=== PATIENT | female | born 1955 | race Caucasian/White ===

== ENCOUNTER 2018-01-01 11:28 | Emergency (ER) | payer OTHER, SELFPAY ==
--- NOTE | 2018-01-01 11:33 | DI.RAD.S_ITS ---
PROCEDURE: XR KNEE RT 1TO2V INDICATIONS: fall deformity TECHNIQUE: 2 views of the knee were acquired. COMPARISON: None. FINDINGS: Bones: Acute displaced fracture involving midportion of patella is seen with proximal retraction of the upper patella fragment and a 3 cm gap at fracture site. No other fracture or dislocation is seen. No suspicious bony lesions. Soft tissues: Moderate suprapatellar joint effusion is seen. Marked anterior soft tissue swelling is noted. No suspicious soft tissue calcifications. IMPRESSION: Acute displaced patella fracture as described above. Dictated by: Uriah Little M.D. on 01/01/2018 at 11:52 Approved by: Uriah Little M.D. on 01/01/2018 at 11:53
[2018-01-01 11:37] VITALS: BP 140/83; PULSE 104; RESP 18; TEMP 36.7; O2SAT 100; BMI 20.1
--- NOTE | 2018-01-01 11:53 | PC.NURSE ---
Checked on patient and family members. Pt was drinking Tea that the family members brought in. Informed everyone that pt needs to remain NPO until we have results and a plan. everyone Verbalizes understanding.
--- NOTE | 2018-01-01 12:07 | ED.FALL ---
HPI - Fall <Avis Barrera PA-C - Last Filed: 01/01/18 15:20> General Chief Complaint: Fall Stated Complaint: GLF, R knee deformity Time Seen by Provider: 01/01/18 11:32 Source: patient Mode of arrival: EMS Limitations: no limitations History of Present Illness HPI Narrative: This 62-year-old female slipped on wet leaves and pavement and fell, pushing her knee into a step shortly prior to arrival. She was not able to bear weight. The knee swelled instantly The and was very painful. She denies any other injury including head contusion or LOC. She denies any pain in her hip, ankle or foot. She denies numbness. She has not eaten today, had a little bit of juice 5 hr ago. Related Data Home Medications Medication Instructions Recorded Confirmed Multi Vitamin 1 tab PO DAILY 01/05/18 01/05/18 Requip 50 mg PO BEDTIME PRN 01/05/18 01/05/18 cholecalciferol (vitamin D3) 500 mg PO DAILY 01/05/18 01/05/18 cyanocobalamin (vitamin B-12) 1,000 mg PO DAILY 01/05/18 01/05/18 lisinopril 20 mg PO DAILY 01/05/18 01/05/18 Previous Rx's Medication Instructions Recorded ibuprofen 800 mg PO Q8H #14 tab 01/01/18 oxycodone-acetaminophen [Percocet] 2 tab PO Q4-6H PRN #14 tab 01/01/18 oxycodone 5 mg PO Q3HR PRN #40 tab 01/05/18 Allergies Allergy/AdvReac Type Severity Reaction Status Date / Time No Known Drug Allergies Allergy Verified 01/05/18 16:33 Review of Systems <Avis Barrera PA-C - Last Filed: 01/01/18 15:20> Review of Systems All systems reviewed & are unremarkable except as noted in HPI and below Exam <Avis Barrera PA-C - Last Filed: 01/01/18 15:20> Narrative Exam Narrative: GENERAL APPEARANCE: Patient sitting comfortably, in no distress. LUNGS: Clear to auscultation bilaterally. HEART: Rate and rhythm regular without murmur, normal S1 and S2, no S3 or S4. MUSCULOSKELETAL: Right knee is markedly edematous over the patella, held in extension. Generalized tenderness to light touch. No tenderness over the inferior leg, ankle or right foot. Able to plantar and dorsiflex the toes. DERMATOLOGIC: Ecchymoses over the right patella NEUROVASCULAR: Right PT and DP pulses are intact, sensation is grossly intact in the right foot which is warm and pink Initial Vital Signs Initial Vital Signs: Vital Signs Temperature 98.1 F 01/01/18 11:37 Pulse Rate 104 H 01/01/18 11:37 Respiratory Rate 18 01/01/18 11:37 Blood Pressure 140/83 01/01/18 11:37 Pulse Oximetry 100 01/01/18 11:37 <Urvashi Barillas DO - Last Filed: 01/06/18 18:24> Initial Vital Signs Initial Vital Signs: Vital Signs Temperature 98.1 F 01/01/18 11:37 Pulse Rate 104 H 01/01/18 11:37 Respiratory Rate 18 01/01/18 11:37 Blood Pressure 140/83 01/01/18 11:37 Pulse Oximetry 100 01/01/18 11:37 Course <Avis Barrera PA-C - Last Filed: 01/01/18 15:20> Additional Information: I spoke with Dr. Cook hotel front desk clerk for orthopedics who advised patient can be immobilized in knee extension and all his office for follow up tomorrow. Orders Ordered: Discontinued Medications Hydromorphone HCl (Dilaudid) 1 mg IV NOW ONE Stop: 01/01/18 12:16 Last Admin: 01/01/18 12:18 Dose: 1 mg Ibuprofen (Advil) 800 mg PO NOW ONE Stop: 01/01/18 13:15 Last Admin: 01/01/18 13:17 Dose: 800 mg Ondansetron HCl (Zofran) 4 mg IV NOW ONE Stop: 01/01/18 12:25 Last Admin: 01/01/18 12:26 Dose: 4 mg Vital Signs - 8 hr 01/01/18 11:37 01/01/18 12:30 01/01/18 13:30 Temperature 98.1 F Pulse Rate 104 H 89 102 H Respiratory Rate 18 14 19 Blood Pressure 140/83 134/76 Blood Pressure [Right Arm] 127/78 Pulse Oximetry 100 100 98 <DO Princess Yusuf Last Filed: 01/06/18 18:24> Orders Ordered: Discontinued Medications Hydromorphone HCl (Dilaudid) 1 mg IV NOW ONE Stop: 01/01/18 12:16 Last Admin: 01/01/18 12:18 Dose: 1 mg Ibuprofen (Advil) 800 mg PO NOW ONE Stop: 01/01/18 13:15 Last Admin: 01/01/18 13:17 Dose: 800 mg Ondansetron HCl (Zofran) 4 mg IV NOW ONE Stop: 01/01/18 12:25 Last Admin: 01/01/18 12:26 Dose: 4 mg Vital Signs - 8 hr 01/01/18 11:37 01/01/18 12:30 01/01/18 13:30 Temperature 98.1 F Pulse Rate 104 H 89 102 H Respiratory Rate 18 14 19 Blood Pressure 140/83 134/76 Blood Pressure [Right Arm] 127/78 Pulse Oximetry 100 100 98 MDM - Fall <Avis Barrera PA-C - Last Filed: 01/01/18 15:20> Imaging Data knee: Radiologist's impression: [address] [address] XRay Report Signed Patient: Karen Bravo RMR#: [id number] : 8Acct:[id number] Age/Sex: 62 / FDate of Service: 01/01/18 Loc: ED Accession Number: [id number] Procedure: XR knee RT 1to2V Ordering Provider: Urvashi Barillas D.O. PROCEDURE: XR KNEE RT 1TO2V INDICATIONS: fall deformity TECHNIQUE: 2 views of the knee were acquired. COMPARISON: None. FINDINGS: Bones: Acute displaced fracture involving midportion of patella is seen with proximal retraction of the upper patella fragment and a 3 cm gap at fracture site. No other fracture or dislocation is seen. No suspicious bony lesions. Soft tissues: Moderate suprapatellar joint effusion is seen. Marked anterior soft tissue swelling is noted. No suspicious soft tissue calcifications. IMPRESSION: Acute displaced patella fracture as described above. Dictated by: Uriah Little M.D. on 01/01/2018 at 11:52 Approved by: Uriah Little M.D. on 01/01/2018 at 11:53 Discharge Plan Departure Patient Disposition: Home Clinical Impression: Right patella fracture Discharge Date/Time: 01/01/18 13:32 Interventions: ED Discharge Assessment Last Done: 01/01/18 13:30 Instructions: DI for Patella Fracture Activity Restrictions/Additional Instructions: Please take Ibuprofen 800mg every 8 hours to help with inflammation and pain, and you can add the prescription pain medication Percocet that you have had previously as needed. Return as we talked about if you have acute changes such as severe increase in pain, numbness, or color changes in your feet (i.e. blue or white). Keep the knee straight and immobilized at all times (you can walk a little bit as long as you keep the knee straight). Call [facility] first thing in the morning and let them know you were seen in the emergency room with a kneecap fracture and Dr. Amezcua advised that you call 1st thing tomorrow to be scheduled Prescriptions: New ibuprofen 800 mg tablet 800 mg PO Q8H Qty: 14 RF: 0 oxycodone-acetaminophen [Percocet] 5-325 mg tablet 2 tab PO Q4-6H PRN (Reason: knee fracture pain acute) Qty: 14 RF: 0 No Action Multi Vitamin 1 tab PO DAILY RF: 0 Requip 50 mg PO BEDTIME PRN (Reason: Restless Leg(S)) RF: 0 cholecalciferol (vitamin D3) 500 mg PO DAILY RF: 0 cyanocobalamin (vitamin B-12) 1,000 mg PO DAILY RF: 0 lisinopril 20 mg PO DAILY RF: 0 oxycodone 5 mg Tablet 5 mg PO Q3HR PRN (Reason: Pain, Moderate (4-6)) Qty: 40 RF: 0 Referrals: Danni Kraus [Primary Care Provider] - Dre Amezcua MD [Physician] - <Urvashi Barillas DO - Last Filed: 01/06/18 18:24> Cosign ED Attending Rafaela Attestation: I was immediately available in the department for consultation. Documentation has been reviewed. I agree with assessment and plan.
[2018-01-01] MEDS: HYDROMORPHONE 1 MG INJ IV (12:18)
[2018-01-01] MEDS: ONDANSETRON 4 MG/2 ML INJ IV (12:26)
[2018-01-01 12:30] VITALS: BP 127/78; PULSE 89; RESP 14; O2SAT 100
[2018-01-01] MEDS: IBUPROFEN 400 MG TABLET 800 MG PO (13:17)
[2018-01-01 13:30] VITALS: BP 134/76; PULSE 102; RESP 19; O2SAT 98
== END 2018-01-01 13:32 | disposition home or self-care (01) ==
PROVIDERS: Emergency Provider Internal Medicine; Family Provider Nurse Practitioner Family; PCP Nurse Practitioner Family
DX: S82.001A Unspecified fracture of right patella, initial encounter for closed fracture (principal); W01.0XXA Fall on same level from slipping, tripping and stumbling without subsequent striking against object, initial encounter
CPT/HCPCS: 73560; 96374; 96375; 99283; 99284; J1170; J2405

== ENCOUNTER 2018-01-05 12:05 | Day surgery (SDC) | payer OTHER, SELFPAY ==
[2018-01-05 14:08] VITALS: BMI 20.1
[2018-01-05] MEDS: LACTATED RINGERS 1,000 ML 42 ML IV (14:22)
[2018-01-05 14:28] VITALS: BMI 20.1
[2018-01-05 14:29] VITALS: BP 137/84; PULSE 100; RESP 16; TEMP 36.9; O2SAT 100
--- NOTE | 2018-01-05 14:39 | SUR.PREOP ---
Did not use chlorhexidine on skin preop due to discomfort and brace.
--- NOTE | 2018-01-05 14:54 | PM.PREOP ---
Pre-operative Note Interval Note Pre-op Check: Yes History & Physical Reviewed by Physician and Yes Exam Performed Changes: No
[2018-01-05] MEDS: CEFAZOLIN VIAL 1 GM in SODIUM CHLORIDE 0.9% 100 ML 200 ML IV (15:05)
--- NOTE | 2018-01-05 15:38 | SUR.OPER ---
Lithotomy on padded OR bed, head on pillow, arms secured on padded arm boards at <90 degrees abduction. Left leg secured in padded yellow fins stirrup. Right leg in padded arthroscopy leg flor under control of surgeon.
[2018-01-05] MEDS: BUPIVACAINE 0.5% W/ EPI (PF) VIAL 30 ML INJ (15:53)
[2018-01-05 16:30] VITALS: BP 132/71; PULSE 105; RESP 20; TEMP 36.1; O2SAT 95
[2018-01-05 16:35] VITALS: BP 153/58; PULSE 108; RESP 17; O2SAT 94
[2018-01-05 16:40] VITALS: BP 138/60; PULSE 107; RESP 19; O2SAT 93
--- NOTE | 2018-01-05 16:40 | PM.OP.1 ---
Operative Date/Time/Diagnoses Date of procedure: 01/05/18 Time of procedure: 16:20 Pre-op diagnosis: Comminuted patellar fracture, right knee Post-op diagnosis: same Procedure & Clinicians Procedure: Open reduction internal fixation of comminuted patellar fracture with K-wires and tension band. Same procedure as scheduled: Yes Indications: The patient is a 62-year-old woman who fell down the stairs earlier this week sustaining a comminuted and badly displaced patellar fracture. She has agreed to surgery after discussion of the risks benefits and alternatives. Risks discussed included but were not limited to potential difficulty with reduction based on the comminution, potential ongoing pain in the knee, potential stiffness, deep venous thrombosis, pulmonary embolism, myocardial infarction, permanent paralysis and . Surgeon: Dayron Nunez Click Yes if Unassisted: Yes Anesthesia Type: General and Local Operative Notes Findings: Significant comminution of the distal fragment with a coronal split. Closure Type: primary Specimen(s): none sent Implants & Drains: Two 0.062 in K-wires and an 18 gauge cerclage wire. Applied: implant(s) Estimated Blood Loss (mL): 100 Blood products transfused: none Tourniquet time (min): 54 Procedure in detail: The patient was seen in the preoperative area where she identified her right leg as the operative site and this was marked with my initials. She received preoperative antibiotics with an appropriate 1st generation cephalosporin and then was taken to the operating room placed on the operating room table in a supine position where she underwent a general anesthetic. A tourniquet was placed about her proximal right thigh. Right leg was placed in the arthroscopic leg flor. Her left leg was placed in a stirrup to move it out of the way of the fluoroscope. The right leg was prepared from the toes to the tourniquet with ChloraPrep in the usual fashion and draped through sterile drapes. Prior to prepping and draping a manager maritime-out was performed per protocol. The leg was elevated and exsanguinated with an Esmarch bandage the tourniquet inflated to 250 mm of mercury. An approximately 12 cm incision was created overlying the patella the fracture hematoma was evacuated using suction. Blood clot from the fracture was cleaned. I initially performed a reduction using a tenaculum clamp. This was viewed on the AP and lateral views with fluoroscopy. Became evident that the coronal split in the distal fragment had displaced and basically intersussepted the proximal fragment into the distal fragment. I released the clamp and carefully inspected the distal fragment. I felt that I could provide good enough fixation to avoid a partial patellectomy. The 2 K-wires were placed and anterior grade fraction through the distal fragment and then the fracture was reduced as best as possible and the wires advanced in a retrograde fashion across the proximal fragment. The the 18 gauge cerclage wire was then placed and tightened. The articular surface was palpated and there was a small step-off but it was within acceptable limits. The position of the hardware was verified in the AP and lateral views. The K-wires were then bent and advanced distally and buried in the quadriceps tendon. The distal portions of the K-wires were bent and cut in such a way that they would not be prominent subcutaneously. The tightening coils of the cerclage wire were bent to avoid subcutaneous irritation. The tears in the retinaculum were then repaired on either side of the patella with running 0 Vicryl. Subcutaneous layer was closed with 3 O Vicryl, the skin with a running 3 0 V lock suture and Steri-Strips. 20 mL of 0.5% Marcaine with epinephrine was injected subcutaneously for postoperative pain control. Steri-Strips, sterile 4x4s, cast padding and an Butch wrap were applied followed by a locked postoperative brace. This was in 0? extension. The tourniquet was deflated during dressing placement for total tourniquet time of 54 min. Patient was then transported to the recovery room in good condition having tolerated procedure well. Complications: none Condition: stable Disposition: PACU Plan for aftercare: The patient will be maintained in a fully extended position for 2 weeks. She will be allowed to weightbear as tolerated in the brace. At 2 weeks we will release her to 0-30 degrees at 4 weeks 0-60 and at 6 weeks 0-90. Two weeks after that the brace will be removed.
[2018-01-05 16:45] VITALS: BP 159/84; PULSE 104; RESP 15; O2SAT 96
--- NOTE | 2018-01-05 16:48 | P.OP_ITS ---
Operative Date/Time/Diagnoses Date of procedure: 01/05/18 Time of procedure: 16:20 Pre-op diagnosis: Comminuted patellar fracture, right knee Post-op diagnosis: same Procedure & Clinicians Procedure: Open reduction internal fixation of comminuted patellar fracture with K-wires and tension band. Same procedure as scheduled: Yes Indications: The patient is a 62-year-old woman who fell down the stairs earlier this week sustaining a comminuted and badly displaced patellar fracture. She has agreed to surgery after discussion of the risks benefits and alternatives. Risks discussed included but were not limited to potential difficulty with reduction based on the comminution, potential ongoing pain in the knee, potential stiffness, deep venous thrombosis, pulmonary embolism, myocardial infarction, permanent paralysis and . Surgeon: Dayron Nunez Click Yes if Unassisted: Yes Anesthesia Type: General and Local Operative Notes Findings: Significant comminution of the distal fragment with a coronal split. Closure Type: primary Specimen(s): none sent Implants & Drains: Two 0.062 in K-wires and an 18 gauge cerclage wire. Applied: implant(s) Estimated Blood Loss (mL): 100 Blood products transfused: none Tourniquet time (min): 54 Procedure in detail: The patient was seen in the preoperative area where she identified her right leg as the operative site and this was marked with my initials. She received preoperative antibiotics with an appropriate 1st generation cephalosporin and then was taken to the operating room placed on the operating room table in a supine position where she underwent a general anesthetic. A tourniquet was placed about her proximal right thigh. Right leg was placed in the arthroscopic leg flor. Her left leg was placed in a stirrup to move it out of the way of the fluoroscope. The right leg was prepared from the toes to the tourniquet with ChloraPrep in the usual fashion and draped through sterile drapes. Prior to prepping and draping a fullerette- out was performed per protocol. The leg was elevated and exsanguinated with an Esmarch bandage the tourniquet inflated to 250 mm of mercury. An approximately 12 cm incision was created overlying the patella the fracture hematoma was evacuated using suction. Blood clot from the fracture was cleaned. I initially performed a reduction using a tenaculum clamp. This was viewed on the AP and lateral views with fluoroscopy. Became evident that the coronal split in the distal fragment had displaced and basically intersussepted the proximal fragment into the distal fragment. I released the clamp and carefully inspected the distal fragment. I felt that I could provide good enough fixation to avoid a partial patellectomy. The 2 K-wires were placed and anterior grade fraction through the distal fragment and then the fracture was reduced as best as possible and the wires advanced in a retrograde fashion across the proximal fragment. The the 18 gauge cerclage wire was then placed and tightened. The articular surface was palpated and there was a small step- off but it was within acceptable limits. The position of the hardware was verified in the AP and lateral views. The K-wires were then bent and advanced distally and buried in the quadriceps tendon. The distal portions of the K- wires were bent and cut in such a way that they would not be prominent subcutaneously. The tightening coils of the cerclage wire were bent to avoid subcutaneous irritation. The tears in the retinaculum were then repaired on either side of the patella with running 0 Vicryl. Subcutaneous layer was closed with 3 O Vicryl, the skin with a running 3 0 V lock suture and Steri-Strips. 20 mL of 0.5% Marcaine with epinephrine was injected subcutaneously for postoperative pain control. Steri-Strips, sterile 4x4s, cast padding and an Butch wrap were applied followed by a locked postoperative brace. This was in 0? extension. The tourniquet was deflated during dressing placement for total tourniquet time of 54 min. Patient was then transported to the recovery room in good condition having tolerated procedure well. Complications: none Condition: stable Disposition: PACU Plan for aftercare: The patient will be maintained in a fully extended position for 2 weeks. She will be allowed to weightbear as tolerated in the brace. At 2 weeks we will release her to 0-30 degrees at 4 weeks 0-60 and at 6 weeks 0- 90. Two weeks after that the brace will be removed.
[2018-01-05] MEDS: fentaNYL 100 MCG/2 ML INJ IV (16:55)
[2018-01-05 17:10] VITALS: BP 160/90; PULSE 92; RESP 16; TEMP 36.8; O2SAT 94
[2018-01-05] MEDS: hydrOXYzine pamoate 25 MG CAPSULE PO (17:15)
[2018-01-05] MEDS: OXYCODONE IR 5 MG TABLET PO (17:15)
--- NOTE | 2018-01-05 18:10 | SUR.PHASEII ---
On discharge, patient desiring to go home despite still with pain. Discussed medication alternatives for then and later. Rec'd Fentanyl in PACU, but given both Hydroxyzine and Oxycodone in Phase II.
== END 2018-01-05 17:50 | disposition home or self-care (01) ==
PROVIDERS: PCP Nurse Practitioner Family; Visit Provider Orthopaedic Surgery
PROC: 0QSD04Z Reposition Right Patella with Internal Fixation Device, Open Approach (ICD-10-PCS; CPT 27524; principal; 2018-01-05 14:45)
DX: S82.031A Displaced transverse fracture of right patella, initial encounter for closed fracture (principal); W01.0XXA Fall on same level from slipping, tripping and stumbling without subsequent striking against object, initial encounter; I10 Essential (primary) hypertension; M19.90 Unspecified osteoarthritis, unspecified site; G25.81 Restless legs syndrome
CPT/HCPCS: 27524; J0690; J1100; J2250; J2405; J2704; J3010

== ENCOUNTER → 2019-09-11 10:46 | Outpatient (CLI) | payer OTHER, SELFPAY ==
[2019-09-11 11:36] LABS: Add Manual Diff / Slide Review NO; Basophils Absolute Auto 0 /uL (0-100); Basophils Percent Auto 0.5 % (0-2); Eosinophils Absolute Auto 100 /uL (0-450); Eosinophils Percent Auto 1.7 % (2-4); Hematocrit 38.3 % (36-46); Hemoglobin 13.4 g/dL (12.0-16.0); Lymphocytes Absolute Auto 1200 /uL (1100-4500); Lymphocytes Percent Auto 19.8 % (25-40); Mean Corpuscular Hemoglobin 37.2 PG (26-34); Mean Corpuscular Volume 106.2 fL (80-100); Monocytes Absolute Auto 600 /uL (0-900); Monocytes Percent Auto 10.3 % (3-14); Neutrophils Absolute Auto 4000 /uL (1500-7000); Neutrophils Percent Auto 67.7 % (50-75); Platelet Count 260 X10^3/uL (150-400); Red Blood Cell Count 3.61 X10^6/uL (4.0-5.2); Red Cell Distribution Width 12.4 % (11.6-14.8); White Blood Cell Count 5.9 X10^3/uL (4.5-11.0)
[2019-09-11 11:55] LABS: BUN Creatinine Ratio 19.7 (6-22); Blood Urea Nitrogen 12 mg/dL (7-17); Calcium 10.7 mg/dL (8.4-10.2); Carbon Dioxide 26 mmol/L (22-32); Chloride 94 mmol/L (98-107); Estimated Glomerular Filt Rate > 60.0 mL/min (>60); Glucose 136 mg/dL (80-110); HEMOLYSIS < 15 (0-50); Potassium 4.3 mmol/L (3.4-5.1); Sodium 131 mmol/L (137-145)
== END ==
PROVIDERS: PCP Internal Medicine; Referring Provider Orthopaedic Surgery; Visit Provider Orthopaedic Surgery
DX: Z01.818 Encounter for other preprocedural examination (principal); Z01.812 Encounter for preprocedural laboratory examination
CPT/HCPCS: 36415; 80048; 85025; 93005; 93010

== ENCOUNTER → 2019-09-24 14:20 | Outpatient (CLI) | payer OTHER, SELFPAY ==
[2019-09-25 20:36] LABS: COVID19 Sendout Not Detected (Not Detect)
== END ==
PROVIDERS: PCP Internal Medicine; Visit Provider Physician Assistant
DX: Z11.59 Encounter for screening for other viral diseases (principal)
CPT/HCPCS: 87635

== ENCOUNTER 2019-09-27 09:46 | Inpatient (IN) | payer OTHER, SELFPAY ==
[2019-09-18 11:54] VITALS: BMI 18.6
[2019-09-27] VITALS (26 sets, daily range): BP systolic 110–153; BP diastolic 52–105; PULSE 103–133; RESP 10–19; TEMP 36.4–37.5; O2SAT 90–100; BMI 19.9
--- NOTE | 2019-09-27 | DI.RAD.S_ITS ---
PROCEDURE: XR LUMBAR SPINE 2-3V INDICATIONS: TLIF L4-S1 TECHNIQUE: 2 views of the lumbar spine were acquired. COMPARISON: None. FINDINGS: Bones: Expected intraoperative alignment of posterior spinal fixation from L4-S1. Interbody cage grafts at L4-L5 and L5-S1. IMPRESSION: Expected intraoperative alignment Dictated by: Tima August M.D. on 09/27/2019 at 17:22 Approved by: Tima August M.D. on 09/27/2019 at 17:23
[2019-09-27] MEDS: LACTATED RINGERS 1,000 ML 42 ML IV ×3 (10:36→17:36)
[2019-09-27] MEDS: fentaNYL 100 MCG/2 ML INJ 50 MCG IV ×4 (10:44→11:09)
--- NOTE | 2019-09-27 10:56 | PM.PREOP ---
Pre-operative Note COVID-19 COVID-19 status: Negative Result date/Date tested (Pos, Neg/Pending): 09/24/19 Interval Note History & Physical reviewed/Exam performed by Physician: Yes Changes to H&P: No
--- NOTE | 2019-09-27 11:00 | PM.OP.1 ---
Operative Date/Time/Diagnoses Date of procedure: 09/27/19 Time of procedure: 16:29 Pre-op diagnosis: Lumbar stenosis with radiculopathy Lumbar scoliosis Post-op diagnosis: same Procedure & Clinicians Procedure: L4-5 anterior fusion with cage L4-5 posterior fusion L5-S1 TLIF (posterior/posterior interbody fusion) with cage L4, L5, S1 screws L4-5, L5-S1 laminectomies Use of microscope Iliac crest bone graft aspirate Placement of epidural catheter Same procedure as scheduled: Yes Indications: [age] year old female with intractable pain from stenosis. They had failed conservative management and requested operative intervention. Risks and benefits of surgery were discussed and appropriate consents were obtained. Surgeon: Gopi Vásquez Rate Supervisor: Rossana Spencer Anesthesia Type: General Operative Notes Findings: None Closure Type: primary Specimen(s): none sent Prosthetic devices, grafts, tissues, transplants, or devices: NuVasive XLIF cage and MAS Reline screws Globus Rise cage Applied: catheter Estimated Blood Loss (mL): 30 Procedure in detail: Patient was brought to the operating room and intubated on the table. Time-out was performed. They were then rolled over to the lateral decubitus position with the [id number]. The table was bent and they were taped down in the correct position. X-rays were taken to confirm a true AP and lateral. Preoperative antibiotics were given. The left flank was prepped and draped in standard sterile fashion. Using fluoroscopy, a 3 cm incision was made above the iliac crest. We bluntly dissected down with Metzenbaum scissors and split the 3 abdominal muscle layers. We dissected out the retroperitoneal space and using finger guidance, brought our 1st dilator down to the psoas muscle. Using neuromonitoring and fluoroscopy, we placed it through the psoas onto the L4-5 disc space in an anterior position and gradually pulled the dilator posteriorly along the disc space. We placed our guidewire and measured our depth for the retractor. We then dilated with the next 2 dilators and then placed our retractor over the dilators. Position was confirmed with fluoroscopy and the retractor was locked down to the bar. We opened up the retractor and checked with neuro monitoring. We then placed the shai and again checked with neuro monitoring. The retractor was opened further and the ALL retractor was placed. An annulotomy was performed. We then performed a complete diskectomy with ring curette, pituitary, box osteotome. A Wilkes was advanced across the disc space under fluoroscopy to release the lateral annulus on the opposite side. We then used sequentially larger trials and confirmed under fluoroscopy. An XLIF cage was packed with Osteocel bone graft and impacted into the L4-5 disc space with fluoroscopy for the anterior fusion at this level. The wound was irrigated. The retractor was closed down. The shai was removed. We carefully removed the retractor with direct visualization to make sure there was no neurovascular or abdominal injury. Final x-rays were taken. The muscle fascia was closed, superficial tissue was closed. The skin was closed. Sterile dressing was placed. The patient was then rolled over on the well-padded prone position on the Darrin table. Using fluoroscopy, a 5 cm incision was made to the well-marked left of the midline. Jamshidi needles were used to cannulate the L4, L5, and S1 pedicles on the left using fluoroscopy and neural monitoring. We changed used to guidewires and then placed our screw shanks. We opened up the retractor at L5-S1. We cleared medially as well as into the gutter. The L5 transverse process and sacral ala were decorticated with the bur. We then brought a microscope. A left-sided laminectomy was performed at L5-S1 using a bur and Kerrison rongeurs. To open the neural foramen we had to perform a facetectomy until we had this adequately decompressed. In the end we could use the ball probe and cross the midline and out to the foramen and everything was open. We then began the TLIF prep. We cleared up the foramen further and retracted the dura medially. Bipolar was used for hemostasis on the disc. An annulotomy was performed. We then used a combination of pituitaries, paddles, Dung to prep the disc space and decorticate the endplates. We placed Osteocel bone graft into the anterior disc space and then placed our Globus Rise cage and expanded it under fluoroscopy. We then added more bone graft. This completed the anterior interbody portion of the TLIF at L5-S1. We then moved our retractors up to L4-5. We again expose the gutter and decorticated the L4 transverse process. We exposed medially. We then performed of left-sided laminectomy at L4-5. We had to remove a fair amount of the facet until the foramen was open. At the end we could move the ball probe cephalad and caudally and out the foramen across the opposite side and everything was open. The wound was copiously irrigated. An epidural catheter was primed with 4mL of 0.5% bupivacaine, 100 mcg fentanyl, 4 mg Duramorph, 1 mg Stadol. The dura was depressed under the cephalad lamina with a ball probe and the epidural catheter was gently advanced 6 cm cephalad. The screw heads were placed and a bella was measured and locked down. A small stab incision was made over the PSIS and a Jamshidi needle was placed into the iliac crest and several mL of bone marrow was aspirated. This was mixed with our locally harvested bone graft as well as the remaining Osteocel and placed in the posterolateral gutter for fusion at at L4-5 as well as the posterolateral fusion portion of the L5-S1 TLIF. The fascia was then closed. The epidural was then injected without resistance. The catheter was pulled and we closed more over the fascia. We then went to the right side. Again using fluoroscopy a 5 cm incision was made. We placed Jamshidi needles down the right-sided pedicles of L4, L5, and S1 with monitoring and fluoroscopy. We changed out of her guidewires and tapped and then placed our screws. A bella was placed and locked down. The wound was irrigated. The fascia was closed. Vancomycin powder was placed in the wounds. The superficial and skin were closed. Sterile dressing was placed. The patient was then rolled over, extubated, brought to the recovery room with no complications. Complications: none Post-operative Condition: stable Disposition: PACU Plan for aftercare: Inpatient. Up with therapy.
[2019-09-27] MEDS: CEFAZOLIN 1 GM/50 ML FROZ.PIGGY IV ×3 (11:45→23:36)
--- NOTE | 2019-09-27 12:26 | SUR.OPER ---
Part 1: Right lateral on padded OR table. Head on pillow, gel axillary roll, pillow to support left arm. Legs flexed, pillows between legs, gel pad under down leg and ankle. Multiple passes of 3 inch cloth tape across shoulder, hip, upper and lower legs to secure patient on OR table.
--- NOTE | 2019-09-27 12:27 | SUR.OPER ---
Part 2: Prone on spine table, head in foam head support, padded chest and pelvic supports, gel pad at knees, lower legs supported by pillows; nipples, genitalia and toes free of pressure, arms secured on foam padded arm boards at <90 degrees abduction. Tape over blanket at thigh secured to table.
[2019-09-27] MEDS: SODIUM CHLORIDE 0.9% 1,000 ML, GENTAMICIN 80 MG IRR ×2 (12:39→13:30)
[2019-09-27] MEDS: BUPIVACAINE 0.5% (PF) 4 ML, MORPHINE-PF 4 MG, BUTORPHANOL 1 MG, fentaNYL 100 MCG INJ (12:40)
[2019-09-27] MEDS: VANCOMYCIN 1,000 MG VIAL 1000 MG TOP (12:45)
[2019-09-27] MEDS: THROMBIN (RECOMBINANT) 5,000 UNIT VIAL 5000 UNIT TOP (12:47)
--- NOTE | 2019-09-27 13:35 | SUR.OPER ---
Approximately 30min delay during case to autoclave the retractor arm that became contaminated by the c-arm.
[2019-09-27] MEDS: LORazepam 2 MG/ML INJ 0.5 MG IV ×2 (17:02→18:16)
[2019-09-27] MEDS: hydrOXYzine 50 MG/ML INJ 25 MG IM (17:10)
--- NOTE | 2019-09-27 17:22 | SUR.PHASEI ---
Report given to Bonnie.====
[2019-09-27] MEDS: ONDANSETRON 4 MG/2 ML INJ IV (17:27)
[2019-09-27] MEDS: HYDROMORPHONE 2 MG INJ IV ×3 (17:27→17:50)
[2019-09-27] MEDS: OXYCODONE IR 5 MG TABLET PO (17:40)
[2019-09-27] MEDS: fentaNYL 100 MCG/2 ML INJ IV ×2 (17:58→18:04)
[2019-09-27] MEDS: LACTATED RINGERS 1,000 ML 125 ML IV (20:04)
[2019-09-27] MEDS: GABAPENTIN 300 MG CAPSULE PO (21:28)
[2019-09-27] MEDS: CELECOXIB 200 MG CAPSULE PO (21:28)
[2019-09-27] MEDS: SENNOSIDES 8.6 MG TABLET 17.2 MG PO (21:28)
[2019-09-27] MEDS: DOCUSATE 100 MG CAPSULE PO (21:28)
[2019-09-27] MEDS: ROPINIROLE 1 MG TABLET PO (21:35)
[2019-09-28] VITALS (9 sets, daily range): BP systolic 102–142; BP diastolic 60–89; PULSE 102–128; RESP 16–18; TEMP 35.9–37.1; O2SAT 88–100
[2019-09-28] MEDS: LACTATED RINGERS 1,000 ML 125 ML IV (04:35)
[2019-09-28] MEDS: OXYCODONE 5 MG/5 ML ORAL SOLUTION 10 MG PO (04:37)
--- NOTE | 2019-09-28 04:49 | PC.NURSE ---
0000 Patient is alert and oriented. Breath sounds with expiratory rhonchi/wheezing in right mid/lower lobes. RA sat 88% so restarted oxygen at 1L/min with sat improving to 96%; on continuous oximetry. HRR but tachy in low 100's. Denies nausea. BT present and abdomen is soft; passing flatus. Indwelling catheter is patent; urine is clear, brian. Dressing to back with Tegaderm rolling up and sanguinous drainage leaking from right side; Tegaderm removed, additional 4X4's placed and new Tegaderm applied. Dressing to left hip is intact with drainage outlined on previous shift noted. Is able to turn herself in bed. Gait not assessed at this time. Complains of 3/10 achy pain but declined pain medication or ice pack. Bilateral calf SCD's applied at this time. Fall risk score is moderate; bed alarm is activated. 0437 Patient now complains of 8/10 pain in left leg/hip; medicated with Oxycodone. Declines offer to assist with repositioning. O2 sat 100% on 1L/min oxygen.
[2019-09-28 05:45] LABS: Hematocrit 31.3 % (36-46); Hemoglobin 10.7 g/dL (12.0-16.0)
[2019-09-28 05:51] LABS: Alanine Aminotransferase 35 IU/L (<35); Albumin 3.4 g/dL (3.5-5.0); Albumin Globulin Ratio 1.6 (1.0-2.8); Alkaline Phosphatase 58 U/L (38-126); Aspartate Aminotransferase 95 IU/L (14-36); BUN Creatinine Ratio 18.5 (6-22); Bilirubin Total 1.6 mg/dL (0.2-1.3); Blood Urea Nitrogen 10 mg/dL (7-17); Calcium 8.9 mg/dL (8.4-10.2); Carbon Dioxide 30 mmol/L (22-32); Chloride 98 mmol/L (98-107); Estimated Glomerular Filt Rate > 60.0 mL/min (>60); Globulin 2.1 g/dL (1.7-4.1); Glucose 151 mg/dL (80-110); HEMOLYSIS < 15 (0-50); Sodium 131 mmol/L (137-145); Total Protein 5.5 g/dL (6.3-8.2)
--- NOTE | 2019-09-28 07:32 | PM.PNPO.1 ---
Subjective Subjective Date Patient Seen: 09/28/19 Time Patient Seen: 07:32 Interval history: She is doing very well. Absolutely no pain. She has been nauseated overnight. Exam Vital Signs (past 8 hours): - 09/28/19 00:00 09/28/19 00:10 09/28/19 03:00 Temperature 96.9 F L 96.9 F L Pulse Rate 108 H 102 H Respiratory Rate 16 16 Blood Pressure 127/69 133/85 Pulse Oximetry 88 L 96 100 Oxygen Delivery Method Nasal Cannula Oxygen Flow Rate 1 Const Orientation: alert and oriented x3 Back/Spine/Pelvis Other: CDI. 5/5 motor both lower extremities. Objective Labs Result Diagrams: 09/28/19 05:14 09/28/19 05:14 Labs: Laboratory Results - last 24 hr 09/28/19 09/28/19 05:14 05:14 Hgb 10.7 L Hct 31.3 L Sodium 131 L Potassium 5.0 Chloride 98 Carbon Dioxide 30 BUN 10 Creatinine 0.54 Estimated GFR > 60.0 BUN/Creatinine Ratio 18.5 Glucose 151 H Calcium 8.9 Total Bilirubin 1.6 H AST 95 H ALT 35 H Alkaline Phosphatase 58 Total Protein 5.5 L Albumin 3.4 L Globulin 2.1 Albumin/Globulin Ratio 1.6 Assessment & Plan Post-op Postoperative Procedures: Procedures Operation Date: 09/27/19 11:15 Actual Procedures Side Surgeon p L4-S1 laminectomies & anterior/posterior instrumented fusion Gopi Vásquez MD She is doing very well. We will mobilize her today with physical therapy. I explained that the epidural will wear off sometime today and she will need some pain medication at that point. Try some Ativan for nausea. If she is doing great this afternoon, she could possibly go home, if not tomorrow. Quality VTE Deep Vein Thrombosis/Pulmonary Embolism Present on Admission: No
--- NOTE | 2019-09-28 07:34 | PM.PNPO.1 ---
Subjective Subjective Date Patient Seen: 09/28/19 Time Patient Seen: 07:34 Interval history: She is doing okay. Pain anywhere from 4-8 depending on how she is moving. Exam Vital Signs (past 8 hours): - 09/28/19 00:00 09/28/19 00:10 09/28/19 03:00 Temperature 96.9 F L 96.9 F L Pulse Rate 108 H 102 H Respiratory Rate 16 16 Blood Pressure 127/69 133/85 Pulse Oximetry 88 L 96 100 Oxygen Delivery Method Nasal Cannula Oxygen Flow Rate 1 Const Orientation: alert and oriented x3 Back/Spine/Pelvis Other: Mild to moderate drainage. 5/5 motor both lower extremities except for 5-/5 left hip flexor Objective Labs Result Diagrams: 09/28/19 05:14 09/28/19 05:14 Labs: Laboratory Results - last 24 hr 09/28/19 09/28/19 05:14 05:14 Hgb 10.7 L Hct 31.3 L Sodium 131 L Potassium 5.0 Chloride 98 Carbon Dioxide 30 BUN 10 Creatinine 0.54 Estimated GFR > 60.0 BUN/Creatinine Ratio 18.5 Glucose 151 H Calcium 8.9 Total Bilirubin 1.6 H AST 95 H ALT 35 H Alkaline Phosphatase 58 Total Protein 5.5 L Albumin 3.4 L Globulin 2.1 Albumin/Globulin Ratio 1.6 Assessment & Plan Post-op Postoperative Procedures: Procedures Operation Date: 09/27/19 11:15 Actual Procedures Side Surgeon p L4-S1 laminectomies & anterior/posterior instrumented fusion Gopi Vásquez MD she is doing well. Mobilize today with physical therapy. Anticipate discharge home in the next 1-2 days. Quality VTE Deep Vein Thrombosis/Pulmonary Embolism Present on Admission: No
[2019-09-28] MEDS: CEFAZOLIN 1 GM/50 ML FROZ.PIGGY IV (08:26)
[2019-09-28] MEDS: OXYCODONE IR 5 MG TABLET 10 MG PO ×4 (08:27→23:28)
[2019-09-28] MEDS: CELECOXIB 200 MG CAPSULE PO ×2 (08:27→18:22)
[2019-09-28] MEDS: DOCUSATE 100 MG CAPSULE PO ×2 (08:27→18:21)
[2019-09-28] MEDS: MULTIVITAMIN 1 TABLET 1 TAB PO (08:27)
[2019-09-28] MEDS: DULOXETINE 30 MG CAPSULE 60 MG PO (08:27)
[2019-09-28] MEDS: lisinopriL 20 MG TABLET PO (08:28)
--- NOTE | 2019-09-28 09:31 | PC.NURSE ---
Addendum entered by Brianne Mulligan R.N. 09/28/19 12:56: Patients dressing to lower back is cdi with old spot of ss drainage. Longoria catheter taken out and patient had 200cc of brian colored urine in longoria. Addendum entered by Brianne Mulligan R.N. 09/28/19 10:48: Patient up and working with physical therapy, tolerating well. Will take out patients longoria catheter soon. She does have a chair alarm on when sitting up as she is a bit forgetful. Original Note: Patients back dressing reenforced last night, dressing is bulky and cdi. Patient given percolone for discomfort of 08/07. She denies any numbness or tingling at this time. Will work with physical therapy shortly. Resting comfortably and ate well at breakfast this morning. Patients iv dressing has been changed as it was compromised, flushing well after dressing changed. Patient had her last iv antibiotic this morning.
--- NOTE | 2019-09-28 10:01 | OT.IP.EVAL ---
Current Diagnoses Other forms of scoliosis, lumbar region (09/27/19) Spondylosis without myelopathy or radiculopathy, lumbar region (09/27/19) Spinal stenosis, lumbar region with neurogenic claudication (09/27/19) Surgery Performed Operation Date: 09/27/19 11:15 Actual Procedures p L4-S1 laminectomies & anterior/posterior instrumented fusion - Gopi Vásquez MD Past Medical History (Last Updated 09/18/19 @ 12:15 by Lianne Collins RN) Arthritis (Acute) HTN (hypertension) (Chronic) Sciatica (Acute) Sinus tachycardia (Acute) TMJ (dislocation of temporomandibular joint) (Acute) Surgical History (Last Updated 09/18/19 @ 12:14 by Lianne Collins RN) History of 3 sections (Acute) History of fusion of cervical spine (Resolved) History of open reduction and internal fixation (ORIF) procedure (Acute 01/05/18) Occupational Therapy Inpatient Evaluation/Re-Eval M1 PT/OT-IP Prior Functional Status Start: 09/28/19 12:50 Freq: NEEDED Status: Active Protocol: Document 09/28/19 09:02 [facility]3] (Rec: 09/28/19 13:26 [facility]3] [id number]) Medical Review Prior Functional Status Medical History Reviewed Yes Communication able to make needs known Mobility and Gait pt stated that she is modified independent with all mobilities; stated that she furniture cruises when she is at home and ambulates without AD outdoors but stated that she is really careful and does not go out of the house much Activities of Daily Living and IADL's Pt states able to do all ADL's and needing increased time for use of the bathroom. Social History Household Members spouse Living Arrangements House Number of Floors (Floors) One Floor Number of Stairs To Enter/Railing? 3 steps to enter with R rail and L side wall rail Home Environment Standard Height Toilet,Walk in Shower Home Equipment Front Wheel Walker,Four Wheel Walker,Raised Toilet Seat w/ Armrests,Grab Bars Near Toilet Additional Social History Comment pt stated that her daughter/ son in law/grandson will be assisting her at home and spouse will not be able to assist her M2 OT-IP Current Condition Start: 09/28/19 12:50 Freq: Status: Active Protocol: Document 09/28/19 09:02 [facility]3] (Rec: 09/28/19 13:26 [facility]3] [id number]) Occupational Therapy Current Condition Current Condition Evaluation Date 09/28/19 Treatment Diagnosis Lumbar stenosis, s/p L4-5 ant/ post fusion, L5-S1 TLIF Diagnosis Onset Date 09/28/19 Post Operative Precautions Lumbar Precautions Log Roll,No Twisting,Limit Bending,Lifting Restriction of 10 lbs,Gait Belt above Incisional Area M3 OT- IP Subjective and Pain Start: 09/28/19 12:50 Freq: Status: Active Protocol: Document 09/28/19 09:02 [facility]3] (Rec: 09/28/19 13:26 [facility]3] [id number]) OT- Subjective Occupational Therapy Visit Type Type Initial Evaluation Visit Start Time 09:02 Visit Stop Time 10:01 Total Visit Minutes 59 Occupational Therapy Visit Comments Patient Comments Pt agreeable to get up. Patient/Caregiver Goals To go home. OT Pain Assessment Pain When Pain Assessed At Rest Pain Present Pain Present Pain Reported Location Left Hip Intensity 4 Scale Used Numeric (0 - 10) M4 OT- IP ADL's Start: 09/28/19 12:50 Freq: Status: Active Protocol: Document 09/28/19 09:02 [facility]3] (Rec: 09/28/19 13:26 [facility]3] [id number]) OT HWN-[id number] Comments OT Self-Feeding Comments Not at meal time. OT ADL-Grooming Comments OT Grooming Comments Educated to spit into a cup or hinge at her hips to spit into the sink. OT ADL-Dressing General Eval Lower Body Dressing Ability Maximum Assistance Areas Needing Assistance Socks Assistive Devices Dressing Assistive Devices [employer] Administrator,Sock Aid Comments OT Dressing Comments Pt educated on use of socks aid and after education able to liana/doff socks on her own . Pt would benefit from relays draftsperson and socks aid to use at home. Pt states her family can assist her for ADl needs. OT ADL-Toileting Comments OT Toileting Comments Not performed. Educated best to stand to wipe or if able to lean to the side appropriately to follow back precaution and able to wipe. Otherwise may benefit from a toilet paper aid. OT ADL-Bathing Bathing Type Bathing Type Sponge Bath General Evaluation Bathing Ability Minimal Assistance Comments OT Bathing Comments Pt able to sponge off and needing assist for her back at this time. M5 OT- IP IADL's Start: 09/28/19 12:50 Freq: Status: Active Protocol: Document 09/28/19 09:02 [facility]3] (Rec: 09/28/19 13:26 [facility]3] [id number]) OT-Instrumental Activities of Daily Living Home Safety Awareness Home Safety Comments Pt a little groggy , confused and at this time would be best to have the family assist with her IADl and ADl needs. M6 OT- IP Functional Cognition Start: 09/28/19 12:50 Freq: Status: Active Protocol: Document 09/28/19 09:02 [facility]3] (Rec: 09/28/19 13:26 [facility]3] [id number]) Cognitive Factors Limiting Selfcare Function Cognitive Ability Level of Alertness Alert,Confusional State Patient Orientation Name,Place,Situation Attention Span Ability Capable of Focused Attention, Capable of Sustained Attention Ability to Follow Commands Able to Follow One Step Commands with Increased Time, Able to Follow One Step Commands with Repetition Safety Awareness Decreased Ability to Apply Precautions,Underestimates Need for Assistance Problem Solving Ability Needs Assist to Identify Solutions Cognitive Comments Cognitive Assessment Comments Pt a bit groggy , not thinking well and not able to recall all her back precautions. Pt needing vc for safety awareness , hand placement to push up from the surface, and to push down on the FWW, pt has a tendency to reach out to items to push versus use of FWW. OT- Vision and Hearing OT- Hearing Assessment OT- Hearing Assessment WFL OT- Vision Assessment Visual Acuity WFL M7 OT- IP Mobility and Balance Start: 09/28/19 12:50 Freq: Status: Active Protocol: Document 09/28/19 09:02 [facility]3] (Rec: 09/28/19 13:26 [facility]3] [id number]) OT- Bed Mobility Assessment Rolling Type of Rolling Roll to Right Level of Assistance Contact Guard Assistance Supine to Sit Supine to Sit Assist Contact Guard Assistance OT-Transfer Assessment Sit to and From Stand Sit to and from Stand Minimal Assistance,Moderate Assistance Transfers Transfer Ability Moderate Assistance Technique Transfer Destination Bed,Chair Transfer Technique Stand Step Pivot Devices Transfer Assistive Devices Gait Belt,Front Wheeled Walker OT- Gait Assessment Comments Gait Ability Comments Just transfer at this time. OT- Balance Assessment Sitting Balance and Reactions Static Sitting Balance Ability Normal Dynamic Sitting Balance Ability Good Standing Balance and Reactions Static Standing Balance Ability Fair M8 OT- IP Objective Assessments Start: 09/28/19 12:50 Freq: Status: Active Protocol: Document 09/28/19 09:02 [facility]3] (Rec: 09/28/19 13:26 [facility]3] [id number]) OT Gross Range of Motion Upper Extremity Range of Motion Assessment Within Functional Limits OT Strength Upper Extremity Strength Assessment Within Functional Limits OT-Muscle Tone Assessment Muscle Tone WNL Yes M9 OT- IP Assessment and Plan Start: 09/28/19 12:50 Freq: Status: Active Protocol: Document 09/28/19 09:02 [facility]3] (Rec: 09/28/19 13:26 [facility]3] [id number]) OT Summary Assessment and Plan Potential Rehabilitation Potential Good Analytic Complexity at Evaluation Low Summary OT Impairments Pain,Functional Cognition, Functional Mobility,Grooming, Dressing,Toileting,Bathing, Toilet Transfers,Shower Transfers,Activity Tolerance Progress Towards Goals Slow Progress due to Pain,Slow Progress due to Activity Tolerance,Slow Progress due to Cognition Assessment Summary Pt s/p L4-5 ant/post fusion, L5-S1 TLIF and main barriers are steps, still a groggy and not thinking well to be able to incorporate her back precautions and now needing one person assist for ADL and functional mobility needs. Pt looking to go home when medically stable. Goals Grooming Goal Independent Dressing Goal Independent Toileting Goal Independent Bathing Goal Standby Assistance Toilet Transfer Goal Independent Shower Transfer Goal Independent Patient/Caregiver Education Goal Demonstrate Post-Op Precautions,Caregiver Independent Assisting Patient Days to Meet Goals 5 Frequency of Treatment Frequency Of Treatment Once a Day Treatment Plan OT Treatment Plan ADL Training,Functional Cognition Training,Functional Mobility,Patient/Family Education,Discharge Planning Other Treatment Recommendations and Next Shower and practice adaptive Treatment Focus equipment for LB dressing Discharge Recommendations OT Discharge Recommendations Home with Assistance Home Equipment Needs relays draftsperson Transportation Needs at Discharge Private Vehicle
--- NOTE | 2019-09-28 10:10 | PT.IIE ---
Current Diagnoses Other forms of scoliosis, lumbar region (09/27/19) Spondylosis without myelopathy or radiculopathy, lumbar region (09/27/19) Spinal stenosis, lumbar region with neurogenic claudication (09/27/19) Surgery Performed Operation Date: 09/27/19 11:15 Actual Procedures p L4-S1 laminectomies & anterior/posterior instrumented fusion - Gopi Vásquez MD Surgical History (Last Updated 09/18/19 @ 12:14 by Lianne Collins RN) History of 3 sections (Acute) History of fusion of cervical spine (Resolved) History of open reduction and internal fixation (ORIF) procedure (Acute 01/05/18) Medical History (Last Updated 09/18/19 @ 12:15 by Lianne Collins RN) Arthritis (Acute) HTN (hypertension) (Chronic) Sciatica (Acute) Sinus tachycardia (Acute) TMJ (dislocation of temporomandibular joint) (Acute) Physical Therapy Inpatient Evaluation/Re-Eval M1 PT/OT-IP Prior Functional Status Start: 09/28/19 12:07 Freq: NEEDED Status: Active Protocol: Document 09/28/19 10:10 AB (Rec: 09/28/19 12:19 AB [id number]) Medical Review Prior Functional Status Medical History Reviewed Yes Communication able to make needs known Mobility and Gait pt stated that she is modified independent with all mobilities; stated that she furniture cruises when she is at home and ambulates without AD outdoors but stated that she is really careful and does not go out of the house much Social History Household Members spouse Living Arrangements House Number of Floors (Floors) One Floor Number of Stairs To Enter/Railing? 3 steps to enter with R rail and L side wall rail Home Environment Standard Height Toilet,Walk in Shower Home Equipment Front Wheel Walker,Four Wheel Walker,Raised Toilet Seat w/ Armrests,Grab Bars Near Toilet Additional Social History Comment pt stated that her daughter/ son in law/grandson will be assisting her at home and spouse will not be able to assist her M2 PT-IP Current Condition Start: 09/28/19 12:07 Freq: NEEDED Status: Active Protocol: Document 09/28/19 10:10 AB (Rec: 09/28/19 12:19 AB [email or web address]) Physical Therapy Current Condition Current Condition Evaluation Date 09/28/19 Treatment Diagnosis s/p L4-5 ant/post fusion/lami; L5S1 TLIF/lami; difficulty in walking Onset Date 09/27/19 Precautions Lumbar Precautions Log Roll,No Twisting,Limit Bending,Lifting Restriction of 10 lbs,Gait Belt above Incisional Area M3 PT-IP Subjective Start: 09/28/19 12:07 Freq: NEEDED Status: Active Protocol: Document 09/28/19 10:10 AB (Rec: 09/28/19 12:19 AB [email or web address]) Subjective Physical Therapy Visit Type Type Initial Evaluation Visit Start Time 10:10 Visit Stop Time 10:47 Total Visit Minutes 37 Number of ENERGY PROJECT ENGINEER Visits 0 Physical Therapy Visit Comments Patient Comments pt is agreeable to do pt but seems anxious and stated that she is shaking Therapy Pain Assessment Pain When Pain Assessed At Rest Pain Present Pain Present Pain Reported Location Left Hip Intensity 5 Scale Used Numeric (0 - 10) Pain Management Techniques Distraction,Re-positioning, Timing of Activity with Medications M4 PT-IP Mobility and Gait Start: 09/28/19 12:07 Freq: NEEDED Status: Active Protocol: Document 09/28/19 10:10 AB (Rec: 09/28/19 12:19 AB [id number]) PT-Bed Mobility Assessment Supine to Sit Supine to Sit Standby Assistance Sit to Supine Sit to Supine Standby Assistance PT-Transfer Assessment Sit to and From Stand Sit to and from Stand Contact Guard Assistance,1 Person Assistance,Use of Upper Extremities Equipment Transfer Assistive Device Gait Belt,Front Wheeled Walker Orthotic/Prosthetic Devices or Brace: No Transfers Transfer Destination Bed,Chair Transfer Technique ambulated using FWW Transfer Ability Level of Assist Contact Guard Assistance, Minimal Assistance,Use of Upper Extremities Comments Mobility Comments reviewed back precautions with pt. pt sitting on chair. completed sit to stand CGA with cues. ambulated towards the bed ~ 15 ft min A and cues . presents with unsteady gait . pt completed supine <>sit SBA and cues. ambulated back to chair using FWW CGA to occasional min A. pt requested to go back to bed and does not want to stay up on the chair. ambulated back towards the bed SBA to CGA using FWW. completed sit to supine SBA. positioned pt in bed. call light and table within reach. Gait Assessment Gait Gait Assistance Required: Standby Assistance,Contact Guard Assist,Minimum Assistance Distance (Feet) 20 Able to Maintain Weight Bearing Status Yes During Gait Assistive Devices Assistive Device Gait Belt,Front Wheeled Walker Orthotic/Prosthetic Devices or Brace: No Gait Deviations General Gait Pattern Antalgic,Decreased Stride Length,Decreased Feet Clearance Factors Limiting Gait Function Factors Limiting Gait Function Decreased Activity Tolerance, Decreased Sensation,Decreased Strength,Limited Range of Motion,Pain,Poor Balance,Poor Safety Awareness Comments Gait Comments pls refer to mobility section for details PT-Balance Assessment Sitting Balance and Reactions Static Sitting Balance Ability Good Dynamic Sitting Balance Ability Good Standing Balance and Reactions Static Standing Balance Ability Fair Dynamic Standing Balance Ability Fair Device Used FWW M5 PT-IP Objective Assessments Start: 09/28/19 12:07 Freq: NEEDED Status: Active Protocol: Document 09/28/19 10:10 AB (Rec: 09/28/19 12:19 AB [email or web address]) Orientation Orientation/Cognition Level of Alertness Alert Orientation Name,Place,Situation Safety Awareness Decreased Safety Awareness Gross Range of Motion Lower Extremity ROM Assessment Within Functional Limits Strength Lower Extremity Strength Assessment Bilaterally Impaired Hip 3+/5 Knee 4-/5 Coordination Assessment Gross Coordination Gross Coordination WNL Muscle Tone Muscle Tone WNL Yes M6 PT-IP Treatment Start: 09/28/19 12:07 Freq: NEEDED Status: Active Protocol: Document 09/28/19 10:10 AB (Rec: 09/28/19 12:19 AB [email or web address]) Physical Therapy Treatment Education Education Provided Precautions,Safety M7 PT-IP Assessment and Plan Start: 09/28/19 12:07 Freq: NEEDED Status: Active Protocol: Document 09/28/19 10:10 AB (Rec: 09/28/19 12:19 AB [email or web address]) PT Summary Assessment and Plan Potential Rehabilitation Potential Good Status of Condition at Evaluation Stable Summary Impairments Pain,ROM,Strength,Balance, Cognition,Bed Mobility, Transfers,Gait,Activity Tolerance Assessment Summary pt requiring SBA to min A with mobility. pt plans to go home and will have family to assist her. will conduct caregiver training when appropriate as well as stair climbing training. will continue to assess progress. Goals Bed Mobility Goal Independent Transfer Goal Independent,Front Wheeled Walker Gait Goal Independent,Front Wheel Walker Gait Distance 100 Other Goals up/down 3 steps R rail L ledge SBA Days to Meet Goals 5 Frequency of Treatment Frequency Of Treatment Twice a Day Treatment Plan Physical Therapy Treatment Plan Bed Mobility Training,Transfer Training,Gait Training, Therapeutic Exercise,Balance Retraining,Post Op Education, Discharge Planning,Hot or Cold Pack,Neuromuscular Re-ed, Coordination Retraining,Manual Therapy Recommendations To Nursing Amount of Assist Needed 1 Person Assist Discharge Recommendations PT Discharge Recommendations Home with Assistance Transportation Needs at Discharge Private Vehicle
--- NOTE | 2019-09-28 14:00 | PT.IPTN ---
Current Diagnoses Other forms of scoliosis, lumbar region (09/27/19) Spondylosis without myelopathy or radiculopathy, lumbar region (09/27/19) Spinal stenosis, lumbar region with neurogenic claudication (09/27/19) Surgery Performed Operation Date: 09/27/19 11:15 Actual Procedures p L4-S1 laminectomies & anterior/posterior instrumented fusion - Gopi Vásquez MD Physical Therapy Treatment Note M2 PT-IP Current Condition Start: 09/28/19 12:07 Freq: NEEDED Status: Active Protocol: Document 09/28/19 10:10 AB (Rec: 09/28/19 12:19 AB [email or web address]) Physical Therapy Current Condition Current Condition Evaluation Date 09/28/19 Treatment Diagnosis s/p L4-5 ant/post fusion/lami; L5S1 TLIF/lami; difficulty in walking Onset Date 09/27/19 Precautions Lumbar Precautions Log Roll,No Twisting,Limit Bending,Lifting Restriction of 10 lbs,Gait Belt above Incisional Area M3 PT-IP Subjective Start: 09/28/19 12:07 Freq: NEEDED Status: Active Protocol: Document 09/28/19 14:00 AB (Rec: 09/28/19 15:22 AB [email or web address]) Subjective Physical Therapy Visit Type Type Treatment Note Visit Start Time 14:00 Visit Stop Time 14:17 Total Visit Minutes 17 Number of PLANT OPERATIONS MANAGER Visits 0 Physical Therapy Visit Comments Patient Comments pt is agreeable to do PT Therapy Pain Assessment Pain When Pain Assessed At Rest Pain Present Pain Present Pain Reported Location Left Hip Intensity 6 Scale Used 7-8/10 after mobility Pain Management Techniques Distraction,Re-positioning, Timing of Activity with Medications M4 PT-IP Mobility and Gait Start: 09/28/19 12:07 Freq: NEEDED Status: Active Protocol: Document 09/28/19 14:00 AB (Rec: 09/28/19 15:22 AB [email or web address]) PT-Transfer Assessment Sit to and From Stand Sit to and from Stand Standby Assistance Equipment Transfer Assistive Device Gait Belt,Front Wheeled Walker Orthotic/Prosthetic Devices or Brace: No Comments Mobility Comments pt found sitting on EOB. agreeable to do PT. ambulated in room SBA using FWW. agreed to ambulate more. completed sit to stand from chair and ambulated towards the stairs ~ 200 ft using FWW SBA to occasional CGA. Completed up/down 3 steps with B rails SBA to CGA. pt ambulated back to her room using FWW SBA 200 ft. pt wanted to stay seated on EOB. positioned table next to pt as well as call button. Gait Assessment Gait Gait Assistance Required: Standby Assistance Distance (Feet) 200 Able to Maintain Weight Bearing Status Yes During Gait Assistive Devices Assistive Device Gait Belt,Front Wheeled Walker Orthotic/Prosthetic Devices or Brace: No Gait Deviations General Gait Pattern Antalgic,Decreased Stride Length,Decreased Feet Clearance Factors Limiting Gait Function Factors Limiting Gait Function Decreased Activity Tolerance, Decreased Sensation,Decreased Strength,Difficulty Following Directions,Limited Range of Motion,Pain,Poor Balance,Poor Safety Awareness Comments Gait Comments pls refer to mobility section for details Stair Climbing Assessment Evaluation Level of Assist On Stairs Contact Guard Assistance,1 Person Assistance Devices Stair Climbing Assistive Devices Left Railing,Right Railing Technique/Endurance Stair Climbing Direction Ascend and Descend Stair Climbing Technique Step to Step Number of Steps Climbed 3 Stair Climbing Set # Repetitions (reps) 1 M5 PT-IP Objective Assessments Start: 09/28/19 12:07 Freq: NEEDED Status: Active Protocol: Document 09/28/19 10:10 AB (Rec: 09/28/19 12:19 AB [email or web address]) Orientation Orientation/Cognition Level of Alertness Alert Orientation Name,Place,Situation Safety Awareness Decreased Safety Awareness Gross Range of Motion Lower Extremity ROM Assessment Within Functional Limits Strength Lower Extremity Strength Assessment Bilaterally Impaired Hip 3+/5 Knee 4-/5 Coordination Assessment Gross Coordination Gross Coordination WNL Muscle Tone Muscle Tone WNL Yes M6 PT-IP Treatment Start: 09/28/19 12:07 Freq: NEEDED Status: Active Protocol: Document 09/28/19 14:00 AB (Rec: 09/28/19 15:22 AB [email or web address]) Physical Therapy Treatment Education Education Provided Precautions,Safety M7 PT-IP Assessment and Plan Start: 09/28/19 12:07 Freq: NEEDED Status: Active Protocol: Document 09/28/19 14:00 AB (Rec: 09/28/19 15:22 AB [email or web address]) PT Summary Assessment and Plan Potential Rehabilitation Potential Good Summary Impairments Pain,ROM,Strength,Balance, Coordination,Sensation,Tone, Cognition,Bed Mobility, Transfers,Gait,Activity Tolerance Progress Towards Goals Slow Progress due to Pain Assessment Summary pt requiring SBA with mobility and continues to c/o back pain. daughter will be coming in this afternoon and plans was to do caregiver training but daughter will not be able to visit long to do a caregiver training. will conduct if needed but pt is moving better this afternoon compared to this morning and is able to tolerate more activity. pt plans to go home and family to assist her. Goals Bed Mobility Goal Independent Transfer Goal Independent,Front Wheeled Walker Gait Goal Independent,Front Wheel Walker Gait Distance 100 Other Goals up/down 3 steps R rapauline L stefany SBA Days to Meet Goals 5 Frequency of Treatment Frequency Of Treatment Twice a Day Treatment Plan Physical Therapy Treatment Plan Bed Mobility Training,Transfer Training,Gait Training, Therapeutic Exercise,Balance Retraining,Post Op Education, Discharge Planning,Hot or Cold Pack,Neuromuscular Re-ed, Coordination Retraining,Manual Therapy Recommendations To Nursing Amount of Assist Needed 1 Person Assist Discharge Recommendations PT Discharge Recommendations Home with Assistance Transportation Needs at Discharge Private Vehicle
--- NOTE | 2019-09-28 14:49 | CM.DANOTE ---
Discharge Planning/Care Management CM Discharge Assessment Start: 09/28/19 14:47 Freq: Status: Active Protocol: Document 09/28/19 14:48 ITV (Rec: 09/28/19 14:48 ITV [id number]) Discharge Planning Assessment Advance Directives? No History Provided By Medical Record Prior Living Arrangements House Household Members spouse Review Status In Process Pre-Anesthesia Assessment Start: 09/18/19 11:54 Freq: Status: Complete Protocol: Document 09/18/19 11:54 CAB (Rec: 09/18/19 12:36 CAB [id number]) Pre-Anesthesia Assessment Patient Information Reviewed Via Phone Assessment Assessment Completed With Patient H&P Completed Within 30 Days Yes Diagnostic Results BMP/CMP,CBC,EKG Comment Labs/EKG @ 09/11/19 COVID screen @ 09/24/19 Primary Care Provider Seen Specialist in Last 12 Months Yes Specialist Seen Orthopedist Primary Language Setswana Sap Bods Developer Required No Height 167.64 cm Weight 52.163 kg Body Mass Index (BMI) 18.6 Hearing Ability Normal Visual Impairment No Limitations Visual Assist None Dentition Type Teeth, Natural Present Barriers to Learning None Hx Anesthesia Reactions No: Na+ 131, Chlor 94 Ca++ 10. 7 on pre-op labs 09/11/19 Hx Family Anesthesia Reaction No Hx Malignant Hyperthermia No Hx Blood Transfusions No Hx Blood Transfusion Reaction No Anesthesia Review Requested No Warehouse Assistant No alcohol intake current alcohol intake frequency holidays/special occasions only Smoking Status Former smoker Tobacco type cigarettes how long ago did patient quit smoking Quit approx 20 years ago Substance Use Type does not use Pain Present Pain Reported Musculoskeletal Symptoms Abnormal Gait,Back Pain, Difficulty Walking,Muscle Spasms,Numbness,Radiating Pain into Limb,Tingling History of Falling (Recent or History of No ) Patient is completely paralyzed or No completely immobile Mental Status Oriented to own ability Is patient on oxygen? No Does patient have BROOKE/SOB No Hx Sleep Apnea No CPAP/BIPAP use not prescribed Currently Taking a Beta Shy No Can You Climb a Flight of Stairs Without Yes SOB Hx Chest Pain No Hx SOB No Hx Syncope or Dizziness No Anti-Coagulant Therapy No Has a Delivery And Installation Subcontractor No Cardiac Testing No Hx Pacemaker/ICD No Pacemaker Rep Required? No Cardiac Clearance Received Not Applicable Diet Type At Home Vegetarian dysphagia No: Some difficulty w/large solids r/t anterior cervical hardware Urinary Catheter Present No Hx Urinary Self Catheterization No Diabetes No Patient No Lactating No Hx Drug Resistant Organism No Presence of External or Internal Medical No Devices Have you had any close contact with No someone diagnosed with COVID-19? Marital Status Lives With spouse Prior Living Arrangements House Number of Floors (Floors) One Floor Support System Spouse Patient Discharge Plan Description Return Home Comment Pt advised 2 day length of stay per surgeon Feels Safe in Current Environment Yes Been Physically Hurt or Threatened By a No Person in Current Environment Do you have thoughts of harming yourself None or others? Are you currently considering suicide? No Do you have a plan to hurt yourself or No Plan others? Do You Have Any Spiritual Beliefs That No May Affect Your HC Choices? Do You Have Any Cultural Practices That No May Affect Your HC Choices? Who Can We Speak to About Patient's Care Family, friends Identifying Code for Release of Patient Oreo Information Health Care Proxy/Next of Kin Will () Health Care Proxy Emergency Contact Name Will () Emergency Contact Advance Directives? No Power of Program Advisor No PAC Instructions Durable medical equipment, Medications to take/avoid, Nasal antibiotic,No ETOH/ petroleum product on skin DOS, NPO,Post-op transportation,Pre -surgical wash,Sensory aids, Sturdy shoes/comfortable clothes,Do not bring valuables and remove jewelry
--- NOTE | 2019-09-28 14:50 | CM.DANOTE ---
Addendum entered by Amanda Serrano LPN 09/28/19 15:29: Met now with pt. Introduced self and role. Pt explains that her Will can help with supportive care but that he is on dialysis 3x week and thus what he is able to do is very limited. She says her daughter Annie/Cherelle Israel and Annie's sons, age 16 and 10 will be in and out of the house helping her. She also has a son Tootie who lives in [place] and he, too, will be around to be helpful. These family members will not be staying with her. Pt reports having extensive spinal surgery at [facility] in 2005 and still has effects from this that impact the was she is able to move. P: remains home when pt is doing well for that setting and with prn family help as per above. Original Note: Discharge Planning/Care Management DCP: asssessment: case received, EMR reviewed. Discussed in Team Rounds this morning. PT and OT were ordered but had not yet seen pt. Pt is a 63 year old female who admitted yesterday for a scheduled spinal surgery. Payer: [facility] Admission status: INPT: confirmed by UR LINDA Rodrigues. Dr. Vásquez saw pt today, notes she is progressing and with a likely d/c to home setting tomorrow or the next day. OT and PT notes are now in: they, too are supportive of a home plan but pt not ready for same today. Both note that pt's Will is unable to help her at home but that a daughter, son in law and grandson will be helping her. Will check in on her now for further clarification of her d/c plans and needs. CM Discharge Assessment Start: 09/28/19 14:47 Freq: Status: Active Protocol: Document 09/28/19 14:48 ITV (Rec: 09/28/19 14:48 ITV [id number]) Discharge Planning Assessment Advance Directives? No History Provided By Medical Record Prior Living Arrangements House Household Members spouse Review Status In Process Pre-Anesthesia Assessment Start: 09/18/19 11:54 Freq: Status: Complete Protocol: Document 09/18/19 11:54 CAB (Rec: 09/18/19 12:36 CAB [id number]) Pre-Anesthesia Assessment Patient Information Reviewed Via Phone Assessment Assessment Completed With Patient H&P Completed Within 30 Days Yes Diagnostic Results BMP/CMP,CBC,EKG Comment Labs/EKG @ [facility] 09/11/19 COVID screen @ 09/24/19 Primary Care Provider Seen Specialist in Last 12 Months Yes Specialist Seen Orthopedist Primary Language Lithuanian [place] Cutter Operator Required No Height 167.64 cm Weight 52.163 kg Body Mass Index (BMI) 18.6 Hearing Ability Normal Visual Impairment No Limitations Visual Assist None Dentition Type Teeth, Natural Present Barriers to Learning None Hx Anesthesia Reactions No: Na+ 131, Chlor 94 Ca++ 10. 7 on pre-op labs 09/11/19 Hx Family Anesthesia Reaction No Hx Malignant Hyperthermia No Hx Blood Transfusions No Hx Blood Transfusion Reaction No Anesthesia Review Requested No Flour Worker No alcohol intake current alcohol intake frequency holidays/special occasions only Smoking Status Former smoker Tobacco type cigarettes how long ago did patient quit smoking Quit approx 20 years ago Substance Use Type does not use Pain Present Pain Reported Musculoskeletal Symptoms Abnormal Gait,Back Pain, Difficulty Walking,Muscle Spasms,Numbness,Radiating Pain into Limb,Tingling History of Falling (Recent or History of No ) Patient is completely paralyzed or No completely immobile Mental Status Oriented to own ability Is patient on oxygen? No Does patient have BROOKE/SOB No Hx Sleep Apnea No CPAP/BIPAP use not prescribed Currently Taking a Beta Shy No Can You Climb a Flight of Stairs Without Yes SOB Hx Chest Pain No Hx SOB No Hx Syncope or Dizziness No Anti-Coagulant Therapy No Has a It Consulting Director No Cardiac Testing No Hx Pacemaker/ICD No Pacemaker Rep Required? No Cardiac Clearance Received Not Applicable Diet Type At Home Vegetarian dysphagia No: Some difficulty w/large solids r/t anterior cervical hardware Urinary Catheter Present No Hx Urinary Self Catheterization No Diabetes No Patient No Lactating No Hx Drug Resistant Organism No Presence of External or Internal Medical No Devices Have you had any close contact with No someone diagnosed with COVID-19? Marital Status Lives With spouse Prior Living Arrangements House Number of Floors (Floors) One Floor Support System Spouse Patient Discharge Plan Description Return Home Comment Pt advised 2 day length of stay per surgeon Feels Safe in Current Environment Yes Been Physically Hurt or Threatened By a No Person in Current Environment Do you have thoughts of harming yourself None or others? Are you currently considering suicide? No Do you have a plan to hurt yourself or No Plan others? Do You Have Any Spiritual Beliefs That No May Affect Your HC Choices? Do You Have Any Cultural Practices That No May Affect Your HC Choices? Who Can We Speak to About Patient's Care Family, friends Identifying Code for Release of Patient Oreo Information Health Care Proxy/Next of Kin Will () Health Care Proxy Emergency Contact Name Will () Emergency Contact Advance Directives? No Power of County Supervisor No PAC Instructions Durable medical equipment, Medications to take/avoid, Nasal antibiotic,No ETOH/ petroleum product on skin DOS, NPO,Post-op transportation,Pre -surgical wash,Sensory aids, Sturdy shoes/comfortable clothes,Do not bring valuables and remove jewelry
[2019-09-28] MEDS: GABAPENTIN 300 MG CAPSULE PO (18:21)
[2019-09-28] MEDS: ROPINIROLE 1 MG TABLET PO (18:22)
[2019-09-28] MEDS: SENNOSIDES 8.6 MG TABLET 17.2 MG PO (18:22)
[2019-09-29 04:00] VITALS: BP 123/75; PULSE 104; RESP 18; TEMP 36.2; O2SAT 96
[2019-09-29] MEDS: OXYCODONE IR 5 MG TABLET 10 MG PO ×2 (04:25→07:31)
[2019-09-29 08:00] VITALS: BP 143/95; PULSE 113; RESP 16; TEMP 36.4; O2SAT 100
[2019-09-29 08:49] VITALS: BP 143/95; PULSE 112
[2019-09-29] MEDS: lisinopriL 20 MG TABLET PO (08:49)
[2019-09-29] MEDS: DOCUSATE 100 MG CAPSULE PO (08:49)
[2019-09-29] MEDS: CELECOXIB 200 MG CAPSULE PO (08:49)
[2019-09-29] MEDS: MULTIVITAMIN 1 TABLET 1 TAB PO (08:50)
[2019-09-29] MEDS: DULOXETINE 30 MG CAPSULE 60 MG PO (08:50)
--- NOTE | 2019-09-29 10:26 | PT.IPTN ---
Current Diagnoses Other forms of scoliosis, lumbar region (09/27/19) Spondylosis without myelopathy or radiculopathy, lumbar region (09/27/19) Spinal stenosis, lumbar region with neurogenic claudication (09/27/19) Surgery Performed Operation Date: 09/27/19 11:15 Actual Procedures p L4-S1 laminectomies & anterior/posterior instrumented fusion - Gopi Vásquez MD Physical Therapy Treatment Note M2 PT-IP Current Condition Start: 09/28/19 12:07 Freq: NEEDED Status: Active Protocol: Document 09/28/19 10:10 AB (Rec: 09/28/19 12:19 AB [id number]) Physical Therapy Current Condition Current Condition Evaluation Date 09/28/19 Treatment Diagnosis s/p L4-5 ant/post fusion/lami; L5S1 TLIF/lami; difficulty in walking Onset Date 09/27/19 Precautions Lumbar Precautions Log Roll,No Twisting,Limit Bending,Lifting Restriction of 10 lbs,Gait Belt above Incisional Area M3 PT-IP Subjective Start: 09/28/19 12:07 Freq: NEEDED Status: Active Protocol: Document 09/29/19 09:54 SHAHEED (Rec: 09/29/19 10:26 [id number]) Subjective Physical Therapy Visit Type Type Treatment Note Visit Start Time 09:54 Visit Stop Time 10:10 Total Visit Minutes 16 Number of COMMERCIAL TELLER Visits 1 Physical Therapy Visit Comments Patient Comments pt is agreeable to do PT Therapy Pain Assessment Pain When Pain Assessed During Mobility Pain Present Pain Present Pain Reported M4 PT-IP Mobility and Gait Start: 09/28/19 12:07 Freq: NEEDED Status: Active Protocol: Document 09/29/19 09:54 SHAHEED (Rec: 09/29/19 10:26 [id number]) PT-Transfer Assessment Sit to and From Stand Sit to and from Stand Independent,Use of Upper Extremities Equipment Transfer Assistive Device Gait Belt,Front Wheeled Walker Orthotic/Prosthetic Devices or Brace: No Transfers Transfer Destination Chair Transfer Technique ambulated w/o AD Transfer Ability Level of Assist Standby Assistance,Use of Upper Extremities Comments Mobility Comments Pt in chair willing to walk with PT. Independently transferred from/to chair. Ambulated in hallway with FWW 100+' then w/o AD another 200' SBA with occ. CGA opccasionally using wall railing for finger tip touch assist. Without AD, Pt uses wider JARED gait pattern with shortened steps causing lateral sway. Gait Assessment Gait Gait Assistance Required: Standby Assistance Distance (Feet) 200 Able to Maintain Weight Bearing Status Yes During Gait Assistive Devices Assistive Device None,Gait Belt,Front Wheeled Walker Orthotic/Prosthetic Devices or Brace: No Gait Deviations General Gait Pattern Antalgic,Decreased Stride Length,Decreased Feet Clearance Factors Limiting Gait Function Factors Limiting Gait Function Decreased Activity Tolerance, Decreased Sensation,Decreased Strength,Limited Range of Motion,Pain,Poor Balance,Poor Safety Awareness Comments Gait Comments pls refer to mobility section for details M5 PT-IP Objective Assessments Start: 09/28/19 12:07 Freq: NEEDED Status: Active Protocol: Document 09/28/19 10:10 AB (Rec: 09/28/19 12:19 AB [id number]) Orientation Orientation/Cognition Level of Alertness Alert Orientation Name,Place,Situation Safety Awareness Decreased Safety Awareness Gross Range of Motion Lower Extremity ROM Assessment Within Functional Limits Strength Lower Extremity Strength Assessment Bilaterally Impaired Hip 3+/5 Knee 4-/5 Coordination Assessment Gross Coordination Gross Coordination WNL Muscle Tone Muscle Tone WNL Yes M6 PT-IP Treatment Start: 09/28/19 12:07 Freq: NEEDED Status: Active Protocol: Document 09/29/19 09:54 LJ (Rec: 09/29/19 10:26 [id number]) Physical Therapy Treatment Education Education Provided Precautions,Safety M7 PT-IP Assessment and Plan Start: 09/28/19 12:07 Freq: NEEDED Status: Active Protocol: Document 09/29/19 09:54 SHAHEED (Rec: 09/29/19 10:26 [id number]) PT Summary Assessment and Plan Potential Rehabilitation Potential Good Summary Impairments Pain,ROM,Strength,Balance, Coordination,Gait,Activity Tolerance Assessment Summary Pt reported less pain this session. Able to ambulate w/o AD but reaches for support occasionally. She has met all goals for DC from PT and is safe to go home with assistance from family. Goals Bed Mobility Goal Independent Transfer Goal Independent,Front Wheeled Walker Gait Goal Independent,Front Wheel Walker Gait Distance 100 Other Goals up/down 3 steps R rail L ledge SBA Days to Meet Goals 5 Frequency of Treatment Frequency Of Treatment Twice a Day Treatment Plan Physical Therapy Treatment Plan Bed Mobility Training,Transfer Training,Gait Training, Therapeutic Exercise,Balance Retraining,Post Op Education, Discharge Planning,Hot or Cold Pack,Neuromuscular Re-ed, Coordination Retraining,Manual Therapy Recommendations To Nursing Amount of Assist Needed 1 Person Assist Discharge Recommendations PT Discharge Recommendations Home with Assistance Transportation Needs at Discharge Private Vehicle
--- NOTE | 2019-09-29 10:50 | P.DS_ITS ---
History of Present Illness History of Present Illness Date Patient Seen: 09/29/19 Time Patient Seen: 10:50 Chief complaint: Extreme Lat Interbody Fusion/Laminectomy Narrative: Pain is moderate. Denies fever chills. No nausea vomiting. Patient has been up with physical therapy. Patient is ready for discharge home. Discharge Providers Provider Date of admission: 09/27/19 09:46 Discharge Date: 09/29/19 Primary care physician: Dari Armijo Consults: 09/27/19 19:09 Consult to Occupational Therapy Evaluate & Treat Comment: Physician Instructions: Evaluate and treat Consult to Physical Therapy Evaluate & Treat Comment: Physician Instructions: Evaluate and Treat Discharge provider: Hu Ramesh PA-C Summary Hospital Course Discharge Diagnosis: Lumbar stenosis with radiculopathy, lumbar scoliosis Hospital Course: Pre-op diagnosis: Lumbar stenosis with radiculopathy Lumbar scoliosis Post-op diagnosis: same Procedure & Clinicians Procedure: L4-5 anterior fusion with cage L4-5 posterior fusion L5-S1 TLIF (posterior/posterior interbody fusion) with cage L4, L5, S1 screws L4-5, L5-S1 laminectomies Use of microscope Iliac crest bone graft aspirate Placement of epidural catheter Same procedure as scheduled: Yes Indications: [age] year old female with intractable pain from stenosis. They had failed conservative management and requested operative intervention. Risks and benefits of surgery were discussed and appropriate consents were obtained. Surgeon: Gopi Vásquez Caregiver Services Home: Rossana Spencer Anesthesia Type: General Operative Notes Findings: None Closure Type: primary Specimen(s): none sent Prosthetic devices, grafts, tissues, transplants, or devices: NuVasive XLIF cage and MAS Reline screws Globus Rise cage Applied: catheter Estimated Blood Loss (mL): 30 Patient admitted to the hospital for the above-mentioned procedure. Patient consented to the same. Patient taken to the operating room on September 27, 2019. Patient back in her room and recovering well. Patient stable condition ready fo r discharge home today in stable condition. Exam Vital Signs (past 8 hours): - 09/29/19 04:00 09/29/19 08:00 09/29/19 08:49 Temperature 97.1 F L 97.6 F Pulse Rate 104 H 113 H 112 H Respiratory Rate 18 16 Blood Pressure 123/75 143/95 H 143/95 H Pulse Oximetry 96 100 Oxygen Delivery Method Nasal Cannula Oxygen Flow Rate 0 Narrative Exam Narrative: 63-year-old female sitting comfortably in bedside chair in no apparent distress. Lumbar dressing has scant moisture. Motor functions intact bilateral lower extremities. Sensation grossly intact to light touch bilateral lower extremities. Objective Labs Result Diagrams: 09/28/19 05:14 09/28/19 05:14 Discharge Assessment & Plan Assessment and Plan Assessment: Discharge home today in stable condition. Discharge Plan Discharge Plan Patient Disposition: Home Discharge comment: Follow-up 1.[address] Vásquez Discharge orders & Medications Prescriptions: Continued oxycodone-acetaminophen [Percocet] 5-325 mg tablet 2 tab PO Q4-6H PRN (Reason: knee fracture pain acute) Qty: 14 RF: 0 ropinirole 1 mg Tablet 1 mg PO BEDTIME RF: 0 lisinopril 20 mg Tablet 20 mg PO DAILY RF: 0 multivitamin Capsule 1 cap PO DAILY RF: 0 duloxetine 60 mg Capsule,Delayed Release(Dr/Ec) 60 mg PO DAILY RF: 0 Follow up/Referrals: Dari Armijo [Primary Care Provider] - Discharge Health Status Multidrug resistant organism: No MDRO Diet/Activity/Treatments Diet: Diet as Tolerated Activity: WBAT, Limit bending, twisting, lifting Cold/Heat Therapy: ice as needed Skin/Wound/Dressing Care Report to your healthcare provider any signs of infection, such as:: chills, fever, increased pain, unusual drainage and unusual redness Dressing: keep clean and dry Visit Report/Discharge Packet Instructions: DI for Prescription Opioid Use, DI for Lateral Lumbar Interbody F usion Stand Alone Forms: Surgery Discharge Discharge Data Primary Care Provider: Dari Armijo Quality VTE Deep Vein Thrombosis/Pulmonary Embolism Present on Admission: No
--- NOTE | 2019-09-29 11:07 | CM.DPC ---
DCP Cont: Checked on patient, she had family in room, and Hu Ramesh from orthopedics has seen patient. She is to be discharged home today with family support. She has been cleared by physical therapy. P: Patient is to be discharged home today, with family support. Rima Hoover RN/Sales Promotion Officer
--- NOTE | 2019-09-29 11:14 | OT.IP.TRT ---
Current Diagnoses Other forms of scoliosis, lumbar region (09/27/19) Spondylosis without myelopathy or radiculopathy, lumbar region (09/27/19) Spinal stenosis, lumbar region with neurogenic claudication (09/27/19) Surgery Performed Operation Date: 09/27/19 11:15 Actual Procedures p L4-S1 laminectomies & anterior/posterior instrumented fusion - Gopi Vásquez MD Occupational Therapy Treatment Note M2 OT-IP Current Condition Start: 09/28/19 12:50 Freq: Status: Active Protocol: Document 09/28/19 09:02 [facility] (Rec: 09/28/19 13:26 [facility] [id number]) Occupational Therapy Current Condition Current Condition Evaluation Date 09/28/19 Treatment Diagnosis Lumbar stenosis, s/p L4-5 ant/ post fusion, L5-S1 TLIF Diagnosis Onset Date 09/28/19 Post Operative Precautions Lumbar Precautions Log Roll,No Twisting,Limit Bending,Lifting Restriction of 10 lbs,Gait Belt above Incisional Area M3 OT- IP Subjective and Pain Start: 09/28/19 12:50 Freq: Status: Active Protocol: Document 09/29/19 11:48 [facility] (Rec: 09/29/19 12:00 [facility] [id number]) OT- Subjective Occupational Therapy Visit Type Type Treatment Note Visit Start Time 11:06 Visit Stop Time 11:14 Total Visit Minutes 8 Occupational Therapy Visit Comments Patient Comments Pt looking to go home and pt's daughter present for caregiver training. Patient/Caregiver Goals To go home. OT Pain Assessment Pain When Pain Assessed At Rest Pain Present Pain Present Denied Pain M4 OT- IP ADL's Start: 09/28/19 12:50 Freq: Status: Active Protocol: Document 09/29/19 11:48 [facility] (Rec: 09/29/19 12:00 [facility] [id number]) OT ADL-Dressing General Eval Upper Body Dressing Ability Minimal Assistance Lower Body Dressing Ability Moderate Assistance Areas Needing Assistance Pants/Shorts,Socks Comments OT Dressing Comments Pt issued help desk technician and sock aid to help increase ease and independence for LB dressing needs. At this time, pt's daughter assist with LB dressing needs and will be there at home to assist for her needs. M5 OT- IP IADL's Start: 09/28/19 12:50 Freq: Status: Active Protocol: Document 09/28/19 09:02 [facility] (Rec: 09/28/19 13:26 [facility] [id number]) OT-Instrumental Activities of Daily Living Home Safety Awareness Home Safety Comments Pt a little groogy , confused and at this time would be best to have the family assist with her IADl and ADl needs. M6 OT- IP Functional Cognition Start: 09/28/19 12:50 Freq: Status: Active Protocol: Document 09/29/19 11:48 [facility] (Rec: 09/29/19 12:00 [facility] [id number]) Cognitive Factors Limiting Selfcare Function Cognitive Ability Level of Alertness Alert Attention Span Ability Capable of Focused Attention, Capable of Sustained Attention Ability to Follow Commands Able to Follow Multi-Step Commands Safety Awareness Underestimates Need for Assistance Cognitive Comments Cognitive Assessment Comments Pt still needing reminders to help incorporate back precautions for her needs, Pt' s daughter has good understanding to be able to remind the pt. M7 OT- IP Mobility and Balance Start: 09/28/19 12:50 Freq: Status: Active Protocol: Document 09/29/19 11:48 [facility] (Rec: 09/29/19 12:00 [facility] [id number]) OT-Transfer Assessment Sit to and From Stand Sit to and from Stand Standby Assistance Transfers Transfer Ability Standby Assistance Technique Transfer Destination Bed Comments Mobility Comments At this time pt is SBA without a device, but able to educate pt and daughter on uneven terrain may be best to have the FWW or someone to hold onto the pt . OT- Balance Assessment Sitting Balance and Reactions Static Sitting Balance Ability Normal Dynamic Sitting Balance Ability Normal Standing Balance and Reactions Static Standing Balance Ability Good M8 OT- IP Objective Assessments Start: 09/28/19 12:50 Freq: Status: Active Protocol: Document 09/28/19 09:02 [facility] (Rec: 09/28/19 13:26 [facility] [id number]) OT Gross Range of Motion Upper Extremity Range of Motion Assessment Within Functional Limits OT Strength Upper Extremity Strength Assessment Within Functional Limits OT-Muscle Tone Assessment Muscle Tone WNL Yes M9 OT- IP Assessment and Plan Start: 09/28/19 12:50 Freq: Status: Active Protocol: Document 09/29/19 11:48 [facility] (Rec: 09/29/19 12:00 [facility] [id number]) OT Summary Assessment and Plan Potential Rehabilitation Potential Good Analytic Complexity at Evaluation Low Summary Progress Towards Goals Progressing Toward Goals Assessment Summary Pt doing much better, pt's daughter present for caregiver training and have good understanding and safety to be able to assist pt for all needs. Pt to go home today. Goals Days to Meet Goals 1 Frequency of Treatment Frequency Of Treatment Once a Day Discharge Recommendations OT Discharge Recommendations Home with Assistance Home Equipment Needs help desk technician and sock aid issued Transportation Needs at Discharge Private Vehicle
--- NOTE | 2019-09-29 11:14 | PC.NURSE ---
Addendum entered by Afshin Sifuentes R.N. 09/29/19 12:20: Patient educated about Discharge instructions. Original Note: Dressing change provided before discharge. Coversite was placed on both wound sites. Patient is ambulating, standby assistance. Patient has some pain 6/10. 10mg Oxycodone given at 0730. Patient was educated about dressing/log rolling/lifting for discharge.
[2019-09-29] MEDS: OXYCODONE IR 10 MG TABLET PO (11:24)
== END 2019-09-29 12:21 | disposition home or self-care (01) | DRG 455 ==
PROVIDERS: Admitting Provider Orthopaedic Surgery; PCP Internal Medicine; Referring Provider Orthopaedic Surgery; Visit Provider Orthopaedic Surgery
PROC: 0SG00A0 Fusion of Lumbar Vertebral Joint with Interbody Fusion Device, Anterior Approach, Anterior Column, Open Approach (ICD-10-PCS; CPT 22558; principal; 2019-09-27 11:15)
DX: M48.062 Spinal stenosis, lumbar region with neurogenic claudication (principal); M41.86 Other forms of scoliosis, lumbar region; M47.816 Spondylosis without myelopathy or radiculopathy, lumbar region; I10 Essential (primary) hypertension; Z01.812 Encounter for preprocedural laboratory examination; Z11.59 Encounter for screening for other viral diseases
CPT/HCPCS: 36415; 72100; 76000; 80053; 85014; 85018; 87635; 94762; 97116; 97161; 97165; 97530; 97535; C1776; J0330; J0595; J1100; J1170; J2060; J2250; J2274; J2405; J2704; J3010; J3410

== ENCOUNTER → 2023-04-15 11:16 | Outpatient (CLI) | payer MEDICARE, OTHER, SELFPAY ==
[2019-09-27 19:11] VITALS: BMI 19.9
--- NOTE | 2023-04-15 11:01 | DI.RAD.S_ITS ---
PROCEDURE: XR HIP W PEL IF DONE RT 2V INDICATIONS: right hip and low back pain TECHNIQUE: AP pelvis with lateral view(s) of the right hip(s). COMPARISON: None. FINDINGS: Bones: No fractures or dislocations. Pelvic ring appears intact. No suspicious bony lesions. Partially visualized lumbar fixation rods. Moderate bilateral arthritic changes within the hips. No erosions. Periarticular osteophytes are present. Soft tissues: The visualized bowel gas pattern is normal. No suspicious soft tissue calcifications. IMPRESSION: Bilateral hip arthritic change. Dictated by: Winnie Lamar M.D. on 04/15/2023 at 14:01 Approved by: Winnie Lamar M.D. on 04/15/2023 at 14:01
--- NOTE | 2023-04-15 11:21 | DI.RAD.S_ITS ---
PROCEDURE: XR LUMBAR SPINE 2-3V INDICATIONS: right hip and low back pain TECHNIQUE: 3views of the lumbar spine were acquired. COMPARISON: [facility] [place], CR, XR LUMBAR SPINE 2 OR 3 VIEWS, 05/09/2020, 11:23. [facility], CR, XR LUMBAR SPINE 2-3V, 09/27/2019, 12:12. FINDINGS: Bones: Mild S-shaped scoliosis. Posterior/interbody fusion L4-L5, L5-S1 with posterior fixation hardware and intervertebral spacers in expected positions. There is severe disc height loss with endplate sclerosis and spurring at the L1-L2, L2-L3 and L3-L4 levels. Moderate multilevel lower lumbar spine facet joint arthropathy. Bones are osteopenic. Soft tissues: Overlying bowel gas pattern is normal. No suspicious soft tissue calcifications. IMPRESSION: 1. Stable posterior/interbody fusion L4-L5 and L5-S1. 2. Multilevel lumbar spine spondylosis similar prior examination. Dictated by: Usama Pathak [facility] Interpreted: Guanaco Davis MD on 04/15/2023 at 14:04 Transcribed by: KJ on 04/15/2023 at 14:07 Approved by: Guanaco Davis M.D. on 04/18/2023 at 10:12
== END ==
PROVIDERS: PCP Family Medicine; Referring Provider Family Medicine; Visit Provider Family Medicine
DX: M47.816 Spondylosis without myelopathy or radiculopathy, lumbar region (principal); M25.551 Pain in right hip; M54.50 Low back pain, unspecified; Z98.1 Arthrodesis status
CPT/HCPCS: 72100; 73502

== ENCOUNTER → 2023-11-25 09:13 | Outpatient (CLI) | payer MEDICARE, OTHER, SELFPAY ==
[2019-09-27 19:11] VITALS: BMI 19.9
--- NOTE | 2023-11-25 09:14 | DI.US.S_ITS ---
PROCEDURE: US ABDOMEN LIMITED INDICATIONS: ELEV LFT'S, BILIRUBIN METABOLISM DISORDER TECHNIQUE: Real-time scanning was performed of the abdominal and retroperitoneal organs, with image documentation. COMPARISON: None. FINDINGS: Liver: Liver is normal in size and homogeneous in echotexture. The parenchyma is hyperechoic. Gallbladder: Small amounts of sludge without gallstones. No wall thickening. No pericholecystic edema. Negative sonographic Light's sign. Biliary ducts: Intrahepatic bile ducts are non-dilated. Extrahepatic bile duct caliber measures 4 mm. Normal is 6-7 mm or less in diameter, or 10 mm or less post-cholecystectomy. Pancreas: Not well visualized due to overlying bowel gas Miscellaneous: No free abdominal fluid. IMPRESSION: 1. Hepatic steatosis versus underlying hepatocellular disease. 2. Cholestasis without sonographic evidence of acute cholecystitis. Dictated by: Paco Lerma M.D. on 11/25/2023 at 15:07 Approved by: Paco Lerma M.D. on 11/25/2023 at 15:09
== END ==
PROVIDERS: PCP Family Medicine; Referring Provider Family Medicine; Visit Provider Family Medicine
DX: E80.6 Other disorders of bilirubin metabolism (principal); R74.01 Elevation of levels of liver transaminase levels; K83.1 Obstruction of bile duct
CPT/HCPCS: 76705

== ENCOUNTER 2025-02-10 12:27 | Inpatient (IN) | payer MEDICARE, OTHER, SELFPAY ==
[2019-09-27 19:11] VITALS: BMI 19.9
[2025-02-10] VITALS (16 sets, daily range): BP systolic 121–143; BP diastolic 66–117; PULSE 89–115; RESP 14–24; TEMP 36.2–36.8; O2SAT 92–99; BMI 15.5; BMI 16.7
--- NOTE | 2025-02-10 12:43 | EKG_ITS ---
[address] [address] Test Date: 2025-02-10 Pat Name: Karen Bravo Department: [facility] Room: Gender: Female [employer]: [place] : 1955 Requested By: Order Number: [id number] Reading MD: Will Rahman MD Measurements Intervals Mcloud Rate: 102 P: 67 ME: 118 QRS: 73 QRSD: 82 T: 62 QT: 366 QTc: 477 Interpretive Statements Sinus tachycardia Electronically Signed On 02-10-2025 21:38:41 PST by Will Rahman MD
[2025-02-10 13:27] LABS: Alanine Aminotransferase 20 IU/L (<35); Albumin 2.9 g/dL (3.5-5.0); Albumin Globulin Ratio 1.0 (1.0-2.8); Alkaline Phosphatase 139 U/L (38-126); Blood Urea Nitrogen 7 mg/dL (7-17); Calcium 8.2 mg/dL (8.4-10.2); Carbon Dioxide 27 mmol/L (22-32); Chloride 93 mmol/L (98-107); Estimated Glomerular Filt Rate > 60 mL/min (>60); Globulin 2.8 g/dL (1.7-4.1); Glucose 174 mg/dL (70-99); HEMOLYSIS < 15 (0-50); Lipase 45 U/L (23-300); Sodium 126 mmol/L (137-145); Total Protein 5.7 g/dL (6.3-8.2)
[2025-02-10 13:29] LABS: Add Manual Diff / Slide Review NO; Hematocrit 32.2 % (36-46); Hemoglobin 11.4 g/dL (12.0-16.0); Lymphocytes Absolute Auto 1000 /uL (1100-4500); Mean Corpuscular HGB Conc 35.4 % (30-36); Mean Corpuscular Hemoglobin 39.0 PG (26-34); Mean Corpuscular Volume 110.1 fL (80-100); Platelet Count 214 X10^3/uL (150-400)
[2025-02-10 13:36] LABS: Potassium 2.5 mmol/L (3.4-5.1)
[2025-02-10 14:22] LABS: RBC Morphology Normal Morphology
[2025-02-10] MEDS: POTASSIUM CHLORIDE IN WATER 10 MEQ/100 ML PIGGYBACK 100 MEQ IV ×4 (14:31→18:39)
[2025-02-10] MEDS: SODIUM CHLORIDE 0.9% 1,000 ML 1000 ML IV (14:31)
[2025-02-10 14:35] LABS: Magnesium 1.2 mg/dL (1.6-2.3)
--- NOTE | 2025-02-10 15:55 | ED.ABDPAIN ---
HPI - Abdominal Pain General Chief Complaint: Abdominal Pain Stated Complaint: fall T-2, vomit, cannot keep food down, weak Time Seen by Provider: 02/10/25 14:00 Source: patient and family Mode of arrival: Wheelchair History of Present Illness HPI narrative: Patient is a 69-year-old female history of hypertension presenting today with increasing abdominal pain and swelling. She reports that she has had diarrhea daily for at least 1 month no nausea or vomiting but poor appetite. Increased swelling in her abdomen. Here with her daughter who did not know she had swelling in her abdomen brought her in for evaluation. No fever or chills. She is quite uncomfortable. Related Data Home Medications ?Medication ?Instructions ?Recorded ?Confirmed lisinopril 20 mg tablet 20 mg PO DAILY 01/05/18 09/27/19 multivitamin 1 cap PO DAILY 01/05/18 09/27/19 ropinirole 1 mg tablet 1 mg PO BEDTIME 01/05/18 09/27/19 duloxetine 60 mg capsule,delayed 60 mg PO DAILY 09/18/19 09/27/19 release Previous Rx's ?Medication ?Instructions ?Recorded oxycodone-acetaminophen 5 mg-325 2 tab PO Q4-6H PRN knee fracture 01/01/18 mg tablet (Percocet) pain acute #14 tabs celecoxib 200 mg capsule (Celebrex) 200 mg PO BID #60 caps 09/29/19 oxycodone-acetaminophen 5 mg-325 1 tab PO Q4-6H PRN pain #40 tabs 09/29/19 mg tablet (Percocet) Allergies Allergy/AdvReac Type Severity Reaction Status Date / Time No Known Drug Allergies Allergy Verified 02/10/25 12:33 Patient History Medical History Sinus tachycardia Arthritis TMJ (dislocation of temporomandibular joint) Sciatica HTN (hypertension) Surgical History History of open reduction and internal fixation (ORIF) procedure (01/05/18) History of 3 sections History of fusion of cervical spine Social History household members: spouse Smoking Status: Former smoker alcohol intake: current Smoking Status: Former smoker alcohol intake frequency: holidays/special occasions only Alcohol type: wine Exam Initial Vital Signs Initial Vital Signs: Vital Signs Temperature 98.2 F 02/10/25 12:33 Pulse Rate 115 H 02/10/25 12:33 Respiratory Rate 18 02/10/25 12:33 Blood Pressure 129/75 02/10/25 12:33 Pulse Oximetry 99 02/10/25 12:33 Oxygen Delivery Method Room Air 02/10/25 12:33 GENERAL: Alert thin cachectic 69-year-old and in no acute distress. HEENT: Head atraumatic,EOMI, pupils reactive, face symmetric, moist mucous membranes CARDIOVASCULAR: Regular rate and rhythm without murmurs, rubs or gallops. RESPIRATORY: Breath sounds equal bilaterally, no wheezes rales or rhonchi. ABDOMEN: Soft, lower abdominal swelling distention EXTREMITIES: Normal range of motion, no clubbing or edema. Neurovascularly intact NEUROLOGICAL: Alert and oriented x4.Normal gait and speech. Cranial nerves II through XII grossly intact. SKIN: Warm, dry, no laceration, no petechiae, no rashes or lesions. Course Orders Ordered: ED Orders 02/10/25 12:43 Comprehensive Metabolic Panel Stat Lipase Stat Magnesium Stat EKG-12 Lead Stat 02/10/25 12:47 Complete Blood Count AUTO DIFF Stat 02/10/25 16:26 CT abdomen pelvis w con Stat 02/10/25 17:20 Lactate (Lactic Acid) Stat Ondansetron HCl (Ondansetron 4 Mg/2 Ml Inj) 4 mg IV NOW PRN PRN Reason: Nausea And Vomiting Ondansetron HCl (Ondansetron 4 Mg Odt) 4 mg PO NOW PRN PRN Reason: Nausea And Vomiting Discontinued Medications Hydromorphone HCl (Hydromorphone Hcl 0.5 Mg/0.5 Ml Syringe) 0.5 mg IV NOW ONE Stop: 02/10/25 16:28 Last Admin: 02/10/25 16:46 Dose: 0.5 mg Documented By: NEMO POTASSIUM CHLORIDE IN WATER (Potassium Cl 10 Meq/100 Ml Jumana) 10 meq in 100 mls @ 100 mls/hr IV Q1H REENA Stop: 02/10/25 18:29 Last Admin: 02/10/25 18:39 Dose: 100 mls/hr Documented By: Infusion: 02/10/25 18:39 Dose: Infused Documented By: Admin: 02/10/25 17:32 Dose: 100 mls/hr Documented By: Infusion: 02/10/25 16:39 Dose: Infused Documented By: Admin: 02/10/25 15:39 Dose: 100 mls/hr Documented By: Infusion: 02/10/25 15:39 Dose: Infused Documented By: Admin: 02/10/25 14:31 Dose: 100 mls/hr Documented By: NEMO Sodium Chloride (Normal Saline 0.9%) 1,000 mls @ 1,000 mls/hr IV BOLUS ONE Stop: 02/10/25 15:18 Last Infusion: 02/10/25 16:34 Dose: Infused Documented By: Admin: 02/10/25 14:31 Dose: 1,000 mls/hr Documented By: NEMO Magnesium Sulfate (Magnesium Sulfate) 2 gm in 50 mls @ 150 mls/hr IV NOW ONE Stop: 02/10/25 16:53 Last Infusion: 02/10/25 17:55 Dose: Infused Documented By: NEMO Co-signed By: CRISTINA Admin: 02/10/25 17:30 Dose: 150 mls/hr Documented By: NEMO Co-signed By: SB Vital Signs Vital signs: Vital Signs - 8 hr 02/10/25 12:33 02/10/25 14:00 02/10/25 16:00 Temperature 98.2 F Pulse Rate 115 H 112 H 99 H Respiratory Rate 18 18 20 Blood Pressure 129/75 142/81 H 121/66 Pulse Oximetry 99 97 98 Oxygen Delivery Method Room Air Room Air 02/10/25 17:00 02/10/25 17:59 02/10/25 18:00 Temperature Pulse Rate 95 H 90 91 H Respiratory Rate 24 14 14 Blood Pressure 127/72 Pulse Oximetry 95 92 92 Oxygen Delivery Method 02/10/25 18:30 02/10/25 18:37 02/10/25 18:37 Temperature Pulse Rate 96 H 96 H Respiratory Rate 17 23 Blood Pressure 123/73 Pulse Oximetry 97 97 Oxygen Delivery Method MDM - Abdominal Pain Lab Data 02/10/25 12:47 02/10/25 12:43 Labs: Lab Results 02/10/25 02/10/25 02/10/25 Range/Units 12:43 12:47 17:20 WBC 5.2 (4.5-11.0) X10^3/uL RBC 2.93 L (4.0-5.2) X10^6/uL Hgb 11.4 L (12.0-16.0) g/dL Hct 32.2 L (36-46) % MCV 110.1 H (80-100) fL MCH 39.0 H (26-34) PG MCHC 35.4 (30-36) % RDW 13.2 (11.6-14.8) % Plt Count 214 (150-400) X10^3/uL Neut % (Auto) 71.9 (50-75) % Lymph % (Auto) 20.1 L (25-40) % [place] % (Auto) 7.3 (3-14) % Eos % (Auto) 0.3 L (2-4) % Baso % (Auto) 0.4 (0-2) % Neut # (Auto) 3700 (1621-9669) /uL Lymph # (Auto) 1000 L (6448-1326) /uL [place] # (Auto) 400 (0-900) /uL Eos # (Auto) 0 (0-450) /uL Baso # (Auto) 0 (0-100) /uL RBC Morphology Normal morphology Sodium 126 L (137-145) mmol/L Potassium 2.5 L* (3.4-5.1) mmol/L Chloride 93 L (98-107) mmol/L Carbon Dioxide 27 (22-32) mmol/L BUN 7 (7-17) mg/dL Creatinine 0.29 L (0.52-1.04) mg/dL Estimated GFR > 60 (>60) mL/min BUN/Creatinine Ratio 24.1 H (6-22) Glucose 174 H (70-99) mg/dL Lactate 3.2 H (0.7-2.1) mmol/L Calcium 8.2 L (8.4-10.2) mg/dL Magnesium 1.2 L (1.6-2.3) mg/dL Total Bilirubin 1.3 (0.2-1.3) mg/dL AST 39 H (14-36) IU/L ALT 20 (<35) IU/L Alkaline Phosphatase 139 H (38-126) U/L Total Protein 5.7 L (6.3-8.2) g/dL Albumin 2.9 L (3.5-5.0) g/dL Globulin 2.8 (1.7-4.1) g/dL Albumin/Globulin Ratio 1.0 (1.0-2.8) Lipase 45 (23-300) U/L Imaging Data CT scan - abdomen/pelvis: Radiologist's Impression: PROCEDURE: CT ABDOMEN PELVIS W CON INDICATIONS: swelling TECHNIQUE: After the administration of intravenous contrast, axial sections acquired from the lung bases to the pubic symphysis. Coronal and sagittal reformats were performed. For radiation dose reduction, the following was used: automated exposure control, adjustment of mA and/or kV according to patient size. COMPARISON: None. FINDINGS: Quality: Diagnostic. Lower Chest: Small right pleural effusion.. Abdomen: Liver: Diffusely heterogenous liver with geographic areas of increased attenuation in the right lobe. Lobulated contour. Gallbladder and bile ducts: Unremarkable. Pancreas: Unremarkable. Spleen: Unremarkable. Adrenal Glands: Unremarkable. Kidneys and Ureters: Unremarkable. Stomach: Diffuse wall thickening. Bowel: Diffuse colonic and small bowel wall thickening. No abnormal bowel dilation. Diverticulosis. Peritoneum: Large volume ascites. Pelvis: Reproductive: Unremarkable. Bladder: Unremarkable. Other: Lymphatic: No adenopathy. Vasculature: No aortic aneurysm. Severe atherosclerosis. Abdominal wall: Intact. Bones: No aggressive osseous lesion. Levoscoliosis of the lumbar spine. Posterior spinal fusion at L4-S1 with interbody cages. Severe degenerative changes. IMPRESSION: Hepatic steatosis and cirrhotic morphology of the liver. Large volume ascites. Marked colonic and small bowel wall thickening throughout the abdomen which may represent portal hypertensive gastroenterocolopathy or alternatively infection. Small right effusion. Dictated by: Jamey Venegas M.D. on 02/10/2025 at 17:19 ECG Data Attestation: I personally reviewed and interpreted this ECG as follows: Prior ECG tracings: available for review Interpretation: Sinus rhythm rate 102 [place] interval 118 QRS [address] changes MDM Narrative Medical decision making narrative: MDM CC: Weakness abdominal swelling Complicating co-morbidities: Hypertension Data collected from: Patient daughter Medical records reviewed: Differential considered: Bowel obstruction malignancy Exam documented above, pertinent findings include: Thin cachectic 69-year-old female abdomen is distended in the lower half tender no evidence of anasarca or ascites Lab Test results independently reviewed as above. Pertinent findings: CBC shows no leukocytosis no anemia CMP shows hyponatremia sodium 128 hypokalemia potassium of 2.5 no ABBY, Mag is 1.2 Bilirubin 1.3 AST 39 ALT 20 lipase 45 Independently reviewed EKG as above Sinus rhythm rate 102 [place] interval 118 QRS [address] changes similar to prior EKGs Imaging studies independently reviewed: CT abdomen pelvis shows large volume ascites hepatic steatosis small right effusion Consultations: 1849 Dr. Luna accepts Treatments: 40 mEq KCL, 2 g of Mag, IV fluids Dilaudid Re-evaluations: Patient remains awake alert oriented Discussion: Patient is 69-year-old female presenting today with increased abdominal distention. I spoke with daughter alone who reports that patient does drink alcohol and has not been able to use her legs and scooting around due to his pretty severe neuropathy. Blood work does reveal hyponatremia hypokalemia she has a ascites on her CT. She otherwise does not appear fluid overloaded. Daughter is trying to clean out and get space for her to live. At this time patient admitted for further treatment Discharge Plan Departure Patient Disposition: Admitted As Inpatient Clinical Impression: Ascites, Hypokalemia, Hypomagnesemia, Acute hyponatremia Admit Date/Time: 02/10/25 18:56 Admit Provider: Ally Luna
--- NOTE | 2025-02-10 16:26 | DI.CT.S_ITS ---
PROCEDURE: CT ABDOMEN PELVIS W CON INDICATIONS: swelling TECHNIQUE: After the administration of intravenous contrast, axial sections acquired from the lung bases to the pubic symphysis. Coronal and sagittal reformats were performed. For radiation dose reduction, the following was used: automated exposure control, adjustment of mA and/or kV according to patient size. COMPARISON: None. FINDINGS: Quality: Diagnostic. Lower Chest: Small right pleural effusion.. Abdomen: Liver: Diffusely heterogenous liver with geographic areas of increased attenuation in the right lobe. Lobulated contour. Gallbladder and bile ducts: Unremarkable. Pancreas: Unremarkable. Spleen: Unremarkable. Adrenal Glands: Unremarkable. Kidneys and Ureters: Unremarkable. Stomach: Diffuse wall thickening. Bowel: Diffuse colonic and small bowel wall thickening. No abnormal bowel dilation. Diverticulosis. Peritoneum: Large volume ascites. Pelvis: Reproductive: Unremarkable. Bladder: Unremarkable. Other: Lymphatic: No adenopathy. Vasculature: No aortic aneurysm. Severe atherosclerosis. Abdominal wall: Intact. Bones: No aggressive osseous lesion. Levoscoliosis of the lumbar spine. Posterior spinal fusion at L4-S1 with interbody cages. Severe degenerative changes. IMPRESSION: Hepatic steatosis and cirrhotic morphology of the liver. Large volume ascites. Marked colonic and small bowel wall thickening throughout the abdomen which may represent portal hypertensive gastroenterocolopathy or alternatively infection. Small right effusion. Dictated by: Jamey Venegas M.D. on 02/10/2025 at 17:19 Approved by: Jamey Venegas M.D. on 02/10/2025 at 17:28
[2025-02-10] MEDS: MAGNESIUM SULFATE 2 GM/50 ML PIGGYBACK IV (17:30)
[2025-02-10 17:43] LABS: Lactate (Lactic Acid) 3.2 mmol/L (0.7-2.1)
[2025-02-10 19:06] LABS: Reflexed Lactate in 2 Hours Y
--- NOTE | 2025-02-10 19:36 | PC.NURSE ---
Pt awake and alert sitting in ED stretcher speaking with daughter when RN enters exam room. Pt engages with RN appropriately at this time. Repeat lactic drawn from existing PIV RAC without difficulty. Continued plan of care discussed at this time. No further requests or concerns at this time. Pt remains connected to cardiac, resp, blood pressure, and pulse ox monitors with alarms on and audible. VS stable at this time. Call light within reach. Daughter remains at bedside.
[2025-02-10 19:55] LABS: Lactate 2HR (Lactic Acid Rflx) 1.5 mmol/L (0.7-2.1)
[2025-02-10] MEDS: SODIUM CHLORIDE 0.9% 1,000 ML 100 ML IV (21:47)
[2025-02-11] MEDS: MORPHINE 2 MG/ML INJ IV ×3 (00:36→14:00)
[2025-02-11 02:00] VITALS: BP 138/82; PULSE 95; RESP 18; O2SAT 96
[2025-02-11] MEDS: POTASSIUM CHLORIDE 20 MEQ TAB 40 MEQ PO (04:13)
[2025-02-11] MEDS: MAGNESIUM SULFATE 2 GM/50 ML PIGGYBACK IV (04:13)
[2025-02-11 05:00] VITALS: BP 119/70; PULSE 87; RESP 19; TEMP 36.6; O2SAT 95
[2025-02-11 05:44] LABS: Add Manual Diff / Slide Review NO; Hematocrit 29.3 % (36-46); Hemoglobin 10.5 g/dL (12.0-16.0); Lymphocytes Absolute Auto 1500 /uL (1100-4500); Mean Corpuscular HGB Conc 35.8 % (30-36); Mean Corpuscular Hemoglobin 39.6 PG (26-34); Mean Corpuscular Volume 110.7 fL (80-100); Platelet Count 167 X10^3/uL (150-400)
[2025-02-11 06:02] LABS: Alanine Aminotransferase 16 IU/L (<35); Albumin 2.5 g/dL (3.5-5.0); Albumin Globulin Ratio 0.9 (1.0-2.8); Alkaline Phosphatase 130 U/L (38-126); Blood Urea Nitrogen 4 mg/dL (7-17); Calcium 7.5 mg/dL (8.4-10.2); Carbon Dioxide 22 mmol/L (22-32); Chloride 100 mmol/L (98-107); Estimated Glomerular Filt Rate > 60 mL/min (>60); Globulin 2.7 g/dL (1.7-4.1); Glucose 82 mg/dL (70-99); HEMOLYSIS 30 (0-50); Magnesium 2.1 mg/dL (1.6-2.3); Phosphorous 2.8 mg/dL (2.8-4.1); Potassium 3.0 mmol/L (3.4-5.1); Sodium 125 mmol/L (137-145); Total Protein 5.2 g/dL (6.3-8.2)
[2025-02-11 06:30] LABS: RBC Morphology Normal Morphology
[2025-02-11] MEDS: PANTOPRAZOLE DR 20 MG TABLET PO (06:47)
--- NOTE | 2025-02-11 07:22 | P.HP_ITS ---
History of Present Illness History of Present Illness Date Patient Seen: 02/10/25 Time Patient Seen: 23:15 Chief complaint: fall T-2, vomit, cannot keep food down, weak Narrative: 69 year old female with past medical history of HTN, Sciatica, and depression presents with abdominal pain and swelling. Per the patient's report, the patient has been havinng poor appetite over the last few weeks. The patient also has diarrhe daily but denies any fever, chills, nausea or vomiting. The patient also denies any GIB. The patient however noticed that she has increasing abdominal swelling ut gordon any pain. The patient's daughter was concerned and brought the patient here for further evaluation. In addition, the patient's daughter report that the patient does drink/abuse alcohol. In our ER, the patient was hemodynamically stable and saturating well on room air. However, the patient lab shows a sodium of 126, potassium 2.5 and glucose of 174. Lactic acid was 3.2 AST [address] Lipase normal. CT scan of abdomen shows sign of cirrhosis and Large ascites with small right pleural effusion. The patient was given Mag replacement, Potassium replacement and IVF with NS due to possible dehydration as a cause for Hyponatremia. [facility] Medical History Sinus tachycardia Arthritis TMJ (dislocation of temporomandibular joint) Sciatica HTN (hypertension) Surgical History History of open reduction and internal fixation (ORIF) procedure (01/05/18) History of 3 sections History of fusion of cervical spine Social History household members: none Smoking Status: Former smoker alcohol intake: current Meds Home Medications and Allergies Home Medications ?Medication ?Instructions ?Recorded ?Confirmed ?Type multivitamin 1 cap PO DAILY 01/05/1801/28 History ropinirole 1 mg tablet 2 mg PO BEDTIME PRN restless leg(s) 01/05/18 02/10/25 History acetaminophen 300 mg-codeine 30 mg 1 tab PO BID PRN pa in 02/10/25 02/10/25 History tablet citalopram 20 mg tablet 30 mg PO DAILY 02/10/2501/28 History cyclobenzaprine 10 mg tablet 10 mg PO 3XD PRN muscle s pasm 02/10/25 02/10/25 History gabapentin 100 mg capsule 100 mg PO ONCE PM PRN neurop athy 02/10/25 02/10/25 History meclizine 12.5 mg tablet 12.5 mg PO BID PRN dizziness 02/10/25 02/10/25 History metformin 500 mg tablet 500 mg PO DAILY 02/10/25 History omeprazole 20 mg capsule,delayed 20 mg PO DAILY 02/10/25 History release trazodone 50 mg tablet 25 mg PO ONCE PM PRN insomni a 02/10/25 02/10/25 History Allergies Allergy/AdvReac Type Severity Reaction Status Date / Time No Known Drug Allergies Allergy Verified 02/10/25 12:33 Review of Systems Review of Systems ROS: Yes All systems reviewed with the patient and are negative except as otherwise documented Exam Vital Signs (past 8 hours): - 02/11/25 02:00 02/11/25 05:00 Temperature 97.8 F Pulse Rate 95 H 87 Respiratory Rate 18 19 Blood Pressure 138/82 119/70 Pulse Oximetry 96 95 Oxygen Flow Rate 0 Oxygen Delivery Method Room Air Oxygen Flow Rate 0 Narrative Exam Narrative: Physical Exam: GENERAL: The patient is not in any acute distressed. Awake and alert. HEENT: Nonicteric sclerae, PERRLA, EOMI. Oropharynx clear. Moist mucous membranes. Conjunctivae appear well perfused. HEART: Regular rate and rhythm without murmurs. No lower extremities edema. LUNGS: Clear to auscultation bilaterally. No wheezing, crackles or rhonchi ABDOMEN: Distended positive for ascites, positive bowel sounds, nontender. SKIN: No rash, no excessive bruising, petechiae, or purpura. NEUROLOGIC: AxO x 3. Cranial nerves II-XII intact without motor/sensory deficit. Objective Labs 02/11/25 05:19 02/11/25 05:19 Labs: Laboratory Results - last 24 hr 02/10/25 02/10/25 02/10/25 12:43 12:47 17:20 WBC 5.2 RBC 2.93 L Hgb 11.4 L Hct 32.2 L MCV 110.1 H MCH 39.0 H MCHC 35.4 RDW 13.2 Plt Count 214 Neut % (Auto) 71.9 Lymph % (Auto) 20.1 L [place]mer[place] % (Auto) 7.3 Eos % (Auto) 0.3 L Baso % (Auto) 0.4 Neut # (Auto) 3700 Lymph # (Auto) 1000 L [place]mer[place] # (Auto) 400 Eos # (Auto) 0 Baso # (Auto) 0 Platelet Estimate RBC Morphology Normal morphology Sodium 126 L Potassium 2.5 L* Chloride 93 L Carbon Dioxide 27 BUN 7 Creatinine 0.29 L Estimated GFR > 60 BUN/Creatinine Ratio 24.1 H Glucose 174 H Lactate 3.2 H Calcium 8.2 L Phosphorus Magnesium 1.2 L Total Bilirubin 1.3 AST 39 H ALT 20 Alkaline Phosphatase 139 H Total Protein 5.7 L Albumin 2.9 L Globulin 2.8 Albumin/Globulin Ratio 1.0 Lipase 45 02/10/25 02/11/25 19:33 05:19 WBC 5.1 RBC 2.65 L Hgb 10.5 L Hct 29.3 L MCV 110.7 H MCH 39.6 H MCHC 35.8 RDW 13.6 Plt Count 167 Neut % (Auto) 56.9 Lymph % (Auto) 28.6 [place]mer[place] % (Auto) 12.8 Eos % (Auto) 1.1 L Baso % (Auto) 0.6 Neut # (Auto) 2900 Lymph # (Auto) 1500 [place] # (Auto) 600 Eos # (Auto) 100 Baso # (Auto) 0 Platelet Estimate Adequate on smear RBC Morphology Normal morphology Sodium 125 L Potassium 3.0 L Chloride 100 Carbon Dioxide 22 BUN 4 L Creatinine 0.23 L Estimated GFR > 60 BUN/Creatinine Ratio 17.4 Glucose 82 Lactate 1.5 Calcium 7.5 L Phosphorus 2.8 Magnesium 2.1 Total Bilirubin 1.4 H AST 41 H ALT 16 Alkaline Phosphatase 130 H Total Protein 5.2 L Albumin 2.5 L Globulin 2.7 Albumin/Globulin Ratio 0.9 L Lipase Assessment & Plan Assessment & Plan narrative: Hyponatremia. Admit the patient to medical telemetry as inpatient. Note sodium is 126. Will continue NS and monitor sodium closely as patient could be dehydrated from reported daily diarrhea. However, if sodium does not improve with NS will also consider hypervolemic hyponatremic as patient does have large ascites secondary to cirrhosis Hypokalemia. Replace and monitor. Hypomagneseima. Replace and monitor. Reported alcohol abuse. Monitor for withdrawal and treat accordingly. Cirrhosis. New diagnsosis likely secondary to alcohol abuse. Will need further workup and management as outpatient. Elevated lactic acid. Could be dehydration and also liver not able to clear due to cirhosis. IVF for now and repeat lacitic acid. No sign of sepsis otherwise. DVT PPx SCDs Code status full code Disposition home in 2 days - As the provider of this telehealth evaluation, requested by the patient's evaluating physician, I attest that I introduced myself to the patient, provided my credentials and determined that telemedicine via a real-time, 2 way interactive audio and video platform is an appropriate and effective means of providing this service. - I reviewed the patient's chart and had a discussion with the member of the patient's treatment team. - The patient and I mutually agreed with continuation of this evaluation via telemedicine. The patient consented for the telemedicine evaluation. - This virtual encounter was taken place from [place] by Dr. Stew Bryson. The patient was evaluated at [facility]. The encounter was approximately 35 minutes. The nurse was present during the entire time of the encounter and was able assists with the stethoscope to listen to the patients. Time-Based Coding :: [TOTAL MINUTES] spent with patient and on the chart (including review of chart, obtaining history, exam, reviewing outside data, placing orders, documenting exam and treatment plan, and counseling patient) on [DATE].
--- NOTE | 2025-02-11 07:54 | P.PN_ITS ---
Subjective Subjective Interval history: Summary: 69 year old female with past medical history of HTN, Sciatica, and depression presents with abdominal pain and swelling. Per the patient's report, the patient has been havinng poor appetite over the last few weeks. The patient also has diarrhe daily but denies any fever, chills, nausea or vomiting. The patient also denies any GIB. The patient however noticed that she has increasing abdominal swelling ut gordon any pain. The patient's daughter was concerned and brought the patient here for further evaluation. In addition, the patient's daughter report that the patient does drink/abuse alcohol. In our ER, the patient was hemodynamically stable and saturating well on room air. However, the patient lab shows a sodium of 126, potassium 2.5 and glucose of 174. Lactic acid was 3.2 AST 39[address] Lipase normal. CT scan of abdomen shows sign of cirrhosis and Large ascites with small right pleural effusion. The patient was given Mag replacement, Potassium replacement and IVF with NS due to possible dehydration as a cause for Hyponatremia. S: She was somewhat confused and has significant tense ascites. She denies any dyspnea. O: T 96.8?, BP 141/83, pulse 92, respiration 16, SpO2 98% room air. Cachectic, no acute distress. Normal speech. Lungs are clear, normal effort. Heart is irregular, rate controlled. Abdomen with tense ascites, no rebound. Minimal leg edema. IMAGING: CTAP: Hepatic steatosis and cirrhotic morphology of the liver. Large volume ascites. Marked colonic and small bowel wall thickening throughout the abdomen which may represent portal hypertensive gastroenterocolopathy or alternatively infection. Small right effusion. MICRO: None. LABS: Sodium 125, K 3.0, creatinine 0.23. A/P: 1. Hyponatremia. Multifactorial, solute deficiency as well as liver cirrhosis with free water overload. 2. Hypokalemia. Replace and monitor. 3. Hypomagneseima. Replace and monitor. 4. Reported alcohol abuse. Monitor for withdrawal and treat accordingly. 5. Cirrhosis. New diagnsosis likely secondary to alcohol abuse. Will need further workup and management as outpatient. 6. Elevated lactic acid. Could be dehydration and also liver not able to clear due to cirhosis. IVF for now and repeat lacitic acid. No sign of sepsis otherwise. PLAN: -NS @ 100/hr -recheck his sodium in 4 hours. If it is lower, we will free water restrict. -therapeutic paracentesis -monitor for alcohol withdrawal. DVT PPx SCDs Code status full code Anticipate 2 MN in the hospital, supports inpatient status. Exam Vital Signs (past 8 hours): - 02/11/25 02:00 02/11/25 05:00 Temperature 97.8 F Pulse Rate 95 H 87 Respiratory Rate 18 19 Blood Pressure 138/82 119/70 Pulse Oximetry 96 95 Oxygen Flow Rate 0 Oxygen Delivery Method Room Air Oxygen Flow Rate 0 Objective Labs 02/11/25 05:19 02/11/25 05:19 Labs: Laboratory Results - last 24 hr 02/10/25 02/10/25 02/10/25 12:43 12:47 17:20 WBC 5.2 RBC 2.93 L Hgb 11.4 L Hct 32.2 L MCV 110.1 H MCH 39.0 H MCHC 35.4 RDW 13.2 Plt Count 214 Neut % (Auto) 71.9 Lymph % (Auto) 20.1 L Mchenry % (Auto) 7.3 Eos % (Auto) 0.3 L Baso % (Auto) 0.4 Neut # (Auto) 3700 Lymph # (Auto) 1000 L Mchenry # (Auto) 400 Eos # (Auto) 0 Baso # (Auto) 0 Platelet Estimate RBC Morphology Normal morphology Sodium 126 L Potassium 2.5 L* Chloride 93 L Carbon Dioxide 27 BUN 7 Creatinine 0.29 L Estimated GFR > 60 BUN/Creatinine Ratio 24.1 H Glucose 174 H Lactate 3.2 H Calcium 8.2 L Phosphorus Magnesium 1.2 L Total Bilirubin 1.3 AST 39 H ALT 20 Alkaline Phosphatase 139 H Total Protein 5.7 L Albumin 2.9 L Globulin 2.8 Albumin/Globulin Ratio 1.0 Lipase 45 02/10/25 02/11/25 19:33 05:19 WBC 5.1 RBC 2.65 L Hgb 10.5 L Hct 29.3 L MCV 110.7 H MCH 39.6 H MCHC 35.8 RDW 13.6 Plt Count 167 Neut % (Auto) 56.9 Lymph % (Auto) 28.6 Mchenry % (Auto) 12.8 Eos % (Auto) 1.1 L Baso % (Auto) 0.6 Neut # (Auto) 2900 Lymph # (Auto) 1500 Mchenry # (Auto) 600 Eos # (Auto) 100 Baso # (Auto) 0 Platelet Estimate Adequate on smear RBC Morphology Normal morphology Sodium 125 L Potassium 3.0 L Chloride 100 Carbon Dioxide 22 BUN 4 L Creatinine 0.23 L Estimated GFR > 60 BUN/Creatinine Ratio 17.4 Glucose 82 Lactate 1.5 Calcium 7.5 L Phosphorus 2.8 Magnesium 2.1 Total Bilirubin 1.4 H AST 41 H ALT 16 Alkaline Phosphatase 130 H Total Protein 5.2 L Albumin 2.5 L Globulin 2.7 Albumin/Globulin Ratio 0.9 L Lipase PFSH Medical History Sinus tachycardia Arthritis TMJ (dislocation of temporomandibular joint) Sciatica HTN (hypertension) Surgical History History of open reduction and internal fixation (ORIF) procedure (01/05/18) History of 3 sections History of fusion of cervical spine Social History household members: none Smoking Status: Former smoker alcohol intake: current Assessment & Plan Time-Based Coding :: [TOTAL MINUTES] spent with patient and on the chart (including review of chart, obtaining history, exam, reviewing outside data, placing orders, documenting exam and treatment plan, and counseling patient) on [DATE].
[2025-02-11 08:59] VITALS: BP 141/83; PULSE 92; RESP 16; TEMP 36; O2SAT 98
[2025-02-11] MEDS: SODIUM CHLORIDE 0.9% 1,000 ML 100 ML IV (09:12)
[2025-02-11] MEDS: MULTIVITAMIN 1 TABLET 1 TAB PO (09:12)
[2025-02-11] MEDS: FOLIC ACID 1 MG TABLET PO (09:12)
[2025-02-11] MEDS: THIAMINE 100 MG TABLET PO (09:13)
[2025-02-11 09:22] LABS: Lactate (Lactic Acid) 1.9 mmol/L (0.7-2.1)
--- NOTE | 2025-02-11 09:55 | PT.IIE ---
Current Diagnoses Hypo-osmolality and hyponatremia (02/10/25) Surgical History (Last Reviewed 02/10/25 @ 16:29 by Urvashi Barillas DO) History of 3 sections History of fusion of cervical spine History of open reduction and internal fixation (ORIF) procedure (01/05/18) Medical History (Last Reviewed 02/10/25 @ 16:29 by Urvashi Barillas DO) Arthritis HTN (hypertension) Sciatica Sinus tachycardia TMJ (dislocation of temporomandibular joint) Physical Therapy Inpatient Evaluation/Re-Eval M1 PT IP Prior Functional Status Start: 02/11/25 14:01 Freq: Status: Active Protocol: Document 02/11/25 14:01 NW (Rec: 02/11/25 14:14 NW [id number]) Medical Review Prior Functional Status Mobility and Gait Pt at baseline is a household and community ambulatory with SPC. Has noted weakness over the past month. Pt notes RLE weaker than L and occasionally gives out on her. Prior Functional Pt has son and daughter that live 1 hour away and Level (Other details another daughter who lives in [place] who is ) coming to assist for next 2 weeks. Social History Household Members none Living Arrangements House Number of Floors ( One Floor Floors) Number of Stairs To ramp to enter Enter/Railing? Home Environment High Toilet,Walk in Shower Home Equipment Grab Bars Near Toilet,Grab Bars In Shower M2 PT-IP Current Condition Start: 02/11/25 14:01 Freq: Status: Active Protocol: Document 02/11/25 14:01 NW (Rec: 02/11/25 14:14 NW [id number]) Physical Therapy Current Condition Current Condition Evaluation Date 02/11/25 Treatment Diagnosis Weakness, Frailty Onset Date 02/10/25 M3 PT-IP Subjective Start: 02/11/25 14:01 Freq: Status: Active Protocol: Document 02/11/25 14:01 NW (Rec: 02/11/25 14:14 NW [id number]) Subjective Physical Therapy Visit Type Type Initial Evaluation Visit Start Time 09:20 Visit Stop Time 09:55 Number of PICK UP WORKER Visits 0 Physical Therapy Visit Comments Patient Comments Pt is found resting supine in bed with bed alarm on. Pt is agreeable to PT evaluation and has to use the restroom. States PCP has not addressed weakness of RLE. Patient Goals To return home. Therapy Pain Assessment Pain When Pain Assessed At Rest Pain Present Pain Present Pain Reported Location Abdomen Intensity 4 Scale Used Numeric (0 - 10) Description Cramping,Sharp Pain Management Modification of Treatment Techniques M4 PT-IP Mobility and Gait Start: 02/11/25 14:01 Freq: Status: Active Protocol: Document 02/11/25 14:01 NW (Rec: 02/11/25 14:14 NW [id number]) PT-Bed Mobility Assessment Rolling Level of Assist Standby Assistance,1 Person Assistance Supine to Sit Supine to Sit Standby Assistance,1 Person Assistance,Head of Bed Elevated Sit to Supine Sit to Supine Minimal Assistance,1 Person Assistance,Head of Bed Elevated Scooting Scooting to Edge of Standby Assistance Bed PT-Transfer Assessment Sit to and From Stand Sit to and from Contact Guard Assistance Stand Equipment Transfer Assistive Gait Belt,Standard Walker Device Transfers Transfer Destination Bed,Toilet Transfer Technique Stand Step Pivot Transfer Ability Level of Assist Contact Guard Assistance Comments Mobility Comments Pt has poor power production with LE, requires heavy use of UE with FWW and grab bars in restroom. Notable dynamic knee valgus. Gait Assessment Gait Gait Assistance Contact Guard Assist Required: Distance (Feet) 30 Assistive Devices Assistive Device Gait Belt,Front Wheeled Walker Gait Deviations General Gait Pattern Decreased Stride Length,Decreased Feet Clearance,Step- to Gait,Wide Based Gait Factors Limiting Gait Function Factors Limiting Decreased Activity Tolerance,Decreased Strength,Poor Gait Function Balance Comments Gait Comments Ambulates with irregular and inconsistent stride length with occasional step to gait pattern. Ambulates slowly with FWW. No instances of RLE giving out, but pt states is does. Stair Climbing Assessment Comments Stair Climbing Not applicable. Comments PT-Balance Assessment Sitting Balance and Reactions Static Sitting Good Balance Ability Dynamic Sitting Good Balance Ability Standing Balance and Reactions Static Standing Fair Balance Ability Dynamic Standing Poor Balance Ability Device Used FWW Comments Other Balance Tests/ Able to assist with toileting and dressing for dynamic Deviations/Treatment standing balance. : M5 PT-IP Objective Assessments Start: 02/11/25 14:01 Freq: Status: Active Protocol: Document 02/11/25 14:01 NW (Rec: 02/11/25 14:14 NW [id number]) Orientation Orientation/Cognition Level of Alertness Alert Orientation Name,Age,Birthday,Month,Date,Year,Day of Week,Place, Situation Safety Awareness Understands Safety Issues Comments High fear of falling. Gross Range of Motion Upper Extremity ROM Assessment Within Functional Limits Lower Extremity ROM Assessment Within Functional Limits Strength Lower Extremity Strength Assessment Right Impaired Hip 3/5 flexion Knee 3+/5 ext Ankle 3+/5 DF Comments Strength Comments pt states this has been slow decline over last month. Coordination Assessment Gross Coordination Gross Coordination WNL Sensation Assessment Sensation Gross Sensation WNL Light Touch Intact Proprioception ( Intact Position) Muscle Tone Muscle Tone WNL Yes M6 PT-IP Treatment Start: 02/11/25 14:01 Freq: Status: Active Protocol: Document 02/11/25 14:01 NW (Rec: 02/11/25 14:14 NW [id number]) Physical Therapy Treatment Education Education Provided Safety Other Treatments Other Treatment Education on getting up only with staff. Education on Performed recommendations of HH upon discharge and to continue to use FWW. M7 PT-IP Assessment and Plan Start: 02/11/25 14:01 Freq: Status: Active Protocol: Document 02/11/25 14:01 NW (Rec: 02/11/25 14:14 NW [id number]) PT Summary Assessment and Plan Potential Rehabilitation Good Potential Status of Condition Evolving at Evaluation Summary Impairments Pain,Strength,Balance,Bed Mobility,Transfers,Gait, Activity Tolerance Progress Towards Progressing Toward Goals Goals Assessment Summary Karen is a 69 yr old female admitted for ascites, hyponatremia, and hypokalemia. Pt at baseline lives alone in [facility] that is WC accessible secondary to having to care for now spouse. Family lives within 1 hour away and pt is having another daughter who is an RN come from [place] to assist with care for the next two weeks. At baseline pt utilizes a single point cane in the home and within the community, but has noted gradual weakness of RLE over the past month. Pt requires Harry for bed mobility and CGA for transfers and gait with FWW with no obvious signs of exertion throughout session. Recommending HH upon discharge with additional family support for ADLs. Goals Bed Mobility Goal Standby Assistance Transfer Goal Standby Assistance Gait Goal Standby Assistance Gait Distance 100 Days to Meet Goals 2 Frequency of Treatment Frequency Of Once a Day Treatment Treatment Plan Physical Therapy Bed Mobility Training,Transfer Training,Gait Training, Treatment Plan Therapeutic Exercise,Balance Retraining,Discharge Planning,Neuromuscular Re-ed Other Progress functional mobility and strength to LRAD. Recommendations and Trial of 4WW. Next Treatment Focus Precautions Other Precautions falls risk Weight Bearing Status Weight Bearing Weight Bear as Tolerated Status Recommendations To Nursing Amount of Assist 1 Person Assist Needed Discharge Recommendations PT Discharge Home with Assistance,Home Health Recommendations Other Discharge Pt has 4WW will try to progress to this AD upon Recommendations discharge. Equipment Needed for Pt has WC, SPC, 4WW, and shower chair. Home Before Discharge Transportation Needs Private Vehicle at Discharge - PT assist 1
[2025-02-11 12:13] VITALS: BP 119/87; PULSE 89; RESP 16; TEMP 35.8; O2SAT 97
[2025-02-11 13:52] LABS: Blood Urea Nitrogen 4 mg/dL (7-17); Calcium 7.6 mg/dL (8.4-10.2); Carbon Dioxide 22 mmol/L (22-32); Chloride 98 mmol/L (98-107); Estimated Glomerular Filt Rate > 60 mL/min (>60); Glucose 101 mg/dL (70-99); HEMOLYSIS 43 (0-50); Potassium 4.0 mmol/L (3.4-5.1); Sodium 124 mmol/L (137-145)
--- NOTE | 2025-02-11 14:06 | DIET.CONS ---
Dietary Consultation Note Admission Date: 02/10/2025 18:56 Assessment: 69 y F admitted for Hyponatremia. Dietitian consulted for malnutrition. Attempted visit x2. Pt with therapy or getting procedure. EMR reviewed. New dx of cirrhosis likely related to alcohol misuse. Reported to have poor appetite over last several weeks. Ht: 162.56 cm Wt: 44.3 kg BMI: 16.7 UBW: 56 kg in 2019 Last BM: () MNA: 6 Frank Score: 19 Diet: 02/10/25 Dinner General (Regular) Diet Diet Modifications: Labs: RBC 2.65 X10^6/uL (4.0-5.2) L 02/11/25 05:19 Hgb 10.5 g/dL (12.0-16.0) L 02/11/25 05:19 Hct 29.3 % (36-46) L 02/11/25 05:19 Creatinine 0.23 mg/dL (0.52-1.04) L 02/11/25 13:33 Lactate 1.9 mmol/L (0.7-2.1) 02/11/25 08:58 Nutrition Diagnosis: Severe Protein Calorie Malnutrition in context of chronic illness related to alteration in function of GI-related organ as evidenced by cirrhosis, BMI severely underweight (16.8), <60% of estimated energy needs for >3 months with report of alcohol abuse Interventions: -Ensure between meals, small freq snacks EER: 4617-2413 kcals (35-40 kcals/kg r/t cirrhosis w/ underweight BMI) 65-70 g protein (1.5 g/kg per cirrhosis) Monitoring/Evaluations: PO intakes, f/u in morning Electronically Signed by: Aracelis Aparicio 02/11/25 14:06 Clinical Dietitian [address] [address]
--- NOTE | 2025-02-11 14:32 | ST.IPCSEOM ---
Visit Care Team Role Provider Type Louie Jones MD Primary Care Provider Physician Specialty: Internal Medicine Address: [address], [address], [place], [address] Email: Urvashi Barillas DO Emergency Provider Physician Referring Provider Specialty: Emergency Medicine Address: [address] [place] [address], [facility] Email: [email or web address] Stew Bryson MD Attending Provider Physician Specialty: Internal Medicine Address: [address] [place] [address], [facility] Email: [email or web address] Ally Luna MD Admit Provider Physician Other Providers Specialty: Family Practice Address: [address] [place] [address], [facility] Phone: Fax: Email: [email or web address] Current Diagnoses Hypo-osmolality and hyponatremia (02/10/25) Past Medical History (Last Reviewed 02/10/25 @ 16:29 by Urvashi Barillas DO) Arthritis (Medical) HTN (hypertension) (Medical) Sciatica (Medical) LLE Sinus tachycardia (Medical) TMJ (dislocation of temporomandibular joint) (Medical) Speech-Language Pathology Swallow Evaluation [facility]AN[facility]TER Clinical Swallow Evaluation Start: 02/11/25 13:23 Freq: Status: Active Protocol: Document 02/11/25 13:24 SS (Rec: 02/11/25 13:44 SS [email or web address]) Clinical Swallow Evaluation Session Time Visit Start Time 12:20 Visit Stop Time 12:50 Total Visit Minutes 30 Visit Information Visit Number [address] Ally Luna MD Reason for Referral Dysphagia Setting Assessment Location Acute Care Visit Type Note Type Initial evaluation Next Note Type Next Note Type Treatment Note Patient Information Identification Type Name,Date of History Per H&P: 69 year old female with past medical history of HTN, Sciatica, and depression presents with abdominal pain and swelling. Per the patient's report, the patient has been having poor appetite over the last few weeks. The patient also has diarrhea daily but denies any fever, chills, nausea or vomiting. The patient also denies any GIB. The patient however noticed that she has increasing abdominal swelling ut gordon any pain. The patient's daughter was concerned and brought the patient here for further evaluation. In addition, the patient's daughter report that the patient does drink/abuse alcohol. In our ER, the patient was hemodynamically stable and saturating well on room air. However, the patient lab shows a sodium of 126, potassium 2.5 and glucose of 174 . Lactic acid was 3.[address] Lipase normal. [address] scan of abdomen shows sign of cirrhosis and Large ascites with small right pleural effusion. The patient was given Mag replacement, Potassium replacement and IVF with NS due to possible dehydration as a cause for Hyponatremia. Clinical swallowing evaluation completed to assess current swallowing function and determine need for further instrumental swallow study. Subjective Chart reviewed and RN consulted. Pt agreeable to PEAN[facility] SORTER Observations assessment and sitting upright in bed upon PEANUT SORTER arrival. Pt's daughter at bedside and assisted with medical history. Pt expressed she has been having difficulty swallowing since undergoing a cervical spinal fusion in 2012. She expressed it feels as if solids and medications stick in her throat, both midline and on the right side (pointing to her larynx). She is able to relieve this sensation with liquid wash and physically manipulating the area with her fingers. It also helps when she eats partially reclined. She stated she eats very minimally, primarily purees, and has lost about 40 lbs over the past four years. Swallowing symptoms have worsened in the past year and pt had undergone endoscopy and colonoscopy with polyps removed (unclear location). Pt has hx of GERD and takes PPIs. She has a GI follow-up scheduled soon, though unsure of date. Pt denied overt s/sx of aspiration, recent head/neck procedures or surgeries, or neuro hx. Pt does reports GI symptoms, such as belching immediately after eating and feeling full prematurely. Reported by Patient/Caregiver Pain/Discomfort Yes Location Neck Other Symptoms Difficulty swallowing pills,Difficulty swallowing solids,Food gets stuck,Weight loss Current Diet Pureed (IDDSI 4) Baseline Feeding Independent in self-feeding Method The IDDSI Framework Protocol: IDDSI.1 Objective Assessment Mental Status Alert,Responsive,Cooperative Oral Integrity WFL Dentition Upper dentures/partials,Lower dentures/partials Lip Function Within normal limits Tongue Function Within normal limits Jaw Function Within normal limits Hard/Soft Palate Within normal limits Function Comment Oral health is good. Pt is wearing new dentures, but is still adjusting to wearing them. OME and CNE WNL. Food and Liquid Trials Position During Upright (90 degrees) Assessment Liquids Trialed Thin (IDDSI 0) Solid Trials Purred (IDDSI 4),Regular (IDDSI 7) Administration Type Cup single sip,Cup consecutive sips,Straw,Self-feeding Oral Impairment Within functional limits Oral Phase Comments Pt observed across trials of thin liquids via tsp cup and straw, puree via tsp, and regular textures. Limited intake of solids as pt reported not feeling hungry. Pt exhibited adequate bolus retrieval without anterior loss. Pt exhibited prolonged bolus manipulation and reduced oral clearance resulting in mild oral residue, likely secondary to new dentures. Pt cleared oral residue independently with liquid wash. Pharyngeal Mildly impaired Impairment Pharyngeal Phase Clinical signs/symptoms of possible pharyngeal Comments dysphagia include globus sensation across trials of solids, cleared with liquid wash and use of small bites . Pt did not demonstrate overt s/sx of aspiration, though pharyngeal phase appeared effortful and pt required 2-3 swallows per bolus. Fatigue/Endurance Endurance WNL Warren Swallow Yes Protocol Results The Warren Swallow Protocol is an evidence-based swallow screening protocol to determine aspiration risk. This tool has been validated across a number of different patient diagnoses and in a number of clinical settings. This is the only screening instrument that both identifies aspiration risk and, when passed, is able to recommend specific oral diets without the need for further instrumental dysphagia testing. Based upon research by Drs. Erasto Scott and Gill Bejarano, this is a reliable and validated swallow screening protocol. Cognitive Screen: PASS Results with 3oz water test: PASS Results with cracker: PASS The IDDSI Framework Protocol: IDDSI.1 Findings Swallowing Function Pharyngoesophageal phase dysphagia Severity of Swallow Mildly impaired Impairment Contributing Factors Excessive pharyngeal residue to Swallow Impairment Prognosis Good Based on Cognitive status,Family support,Age Comment Pt presents with WFL oral phase dysphagia and concern for possible pharyngeal phase dysphagia given globus sensation and sticking sensation with intake of solids. Oral phase was largely timely despite pt wearing new dentures. Pharyngeal phase cannot be objectively assessed at bedside though subjectively appeared effortful and pt reported sticking sensation of solids in pharynx. Pt passed the 3 ounce water test. No overt s/sx of aspiration observed with all PO trials. Based on pt?s current good oral health status and intact immune function, pt remains at a low risk of pulmonary compromise associated with aspiration at this time. Pt appears to be at risk for malnutrition/dehydration due to decreased appetite and unintentional weight loss. RD referral in place. Diet modification/non oral nutrition not indicated. Recommend pt continue baseline diet of regular textures (self-selecting softer foods as needed) and thin liquids. Modified Barium Swallow Study (MBSS) to visualize and assess swallow function and anatomy, determine aspiration risk, make appropriate and updated diet and treatment recommendations, as well as to identify need for additional referrals. Additionally, recommend MBSS be completed to confirm/rule out pharyngeal phase involvement vs symptoms resulting from esophageal phase impairment to further guide POC. Pt and family agreeable. Impact on Safety and Risk for inadequate nutrition/hydration Functioning Recommendations Instrumental Yes Assessment Swallowing Treatment Yes Recommended Solids Regular (IDDSI 7) Recommended Liquids Thin (IDDSI 0) Medication As Tolerated Recommendations Discharge Home with Home Health,Outpatient therapy Recommendations Referrals Recommended Dietary,Gastroenterology Referrals Education Patient/Caregiver Described results of evaluation,Patient expressed Education understanding of evaluation,Patient expressed agreement with goals & treatment plans,Family/caregivers expressed understanding of evaluation,Family/caregivers expressed agreement with goals & treatment plans Goals Short-term Goals Patient will complete MBSS to further evaluate swallowing pathophysiology and determine next steps in POC. Long-term Goals Patient will safely tolerate least restrictive diet consistency to allow for safe consumption of daily meals without globus sensation.
--- NOTE | 2025-02-11 15:06 | CM.DANOTE ---
Patient is a 69 yo female who was admitted INPT Status for Abd Pain and Swelling. Pt has [facility] and [employer] for insurance and her PCP is Louie Jones. EMR was reviewed. Per MD, pt with hx of ETOH and admitted for cirrhosis, large ascites, small PE, hyponatremia, hypokalcemia. Per PT, pt ambulating fairly well and her Dtr is flying in today to stay for two weeks and is an RN and recommending home with assist and HH. Per ST, pt has ongoing swallow issues and recommending MBSS. SW met bedside with pt and explained role and she confirms she lives in [place] alone but has local son and Dtr but feels most supported by her Dtr who is flying in from out of town today to stay with her. Pt somewhat tearful and hopeful for home but seems to be a little forgetful today but discussed HH recommendation and she denies any HH hx and would likely be agreeable if covered by her Medicare. SW provided HH Choice list and no HH preference and provided [facility] brochure based on Vendor Calendar to review and pt requesting SW to update her family bedside in the AM to explain HH. SW made initial [facility] referral but F2F not yet completed. Plan: SW to follow for possible MBSS with ST while admitted and her labs to stabilize and then discussion when family is bedside to confirm plan of home with Dtr to stay with pt and finalize [facility] if Dtr in agreement. GINNY Ramírez Discharge Planning/Care Management CM Discharge Assessment Start: 02/10/25 21:41 Freq: Status: Active Protocol: Document 02/11/25 15:03 BF (Rec: 02/11/25 15:06 [id number]) Discharge Planning Assessment Assigned Discharge GINNY Grewal Chief [employer] Provider Louie Jones Insurance Medicare DPOA/Assigned none, informally Dtr Designee Name Advance Directives? No Advance Directives No on File History Provided By Patient,Family Member,Medical Record Has Patient been No admitted in last 30 days? Comment Last admit in 2019 Prior Living House Arrangements Household Members none Type of Relies on Others transporation used prior to admit Independent with ADL Yes 's Is patient alert and Yes: mostly oriented? Needs Assistance Managing Medications,Home Chores / Shopping With Caregiver for No Another DME Already Rented / FWW / Walker Owned Patient/Family Home with Home Health Preference Barriers to No Discharge Discharge Plan Home with Home Health Transportation Dtr plans to transport at d/c Arrangement Referrals Initiated Home Health Medicare Choice List Yes Provided Medicare choice list patient reviewed on electronic tablet with SNF/HH Preference [facility] Whiteboard Updated Yes in Patient Room with name and ext. # of Chaser Apprentice Review Status In Process Please Provide Date 02/11/25 Initial DC Assessment Was Performed Next Review Type Continued Stay Review
--- NOTE | 2025-02-11 16:12 | PC.NURSE ---
Shift Note- MD Guillory performed a bedside paracentesis assisted by ultrasound. This RN at bedside, procedure performed with sterile technique. Patient medicated per MD Guillory with local lidocaine. 2800 of yellow serous fluid pulled from abdomen. Sample sent to lab for testing. Patient medicated per pain and tolerated procedure well, VSS.
[2025-02-11 16:52] VITALS: BP 139/88; PULSE 89; RESP 16; TEMP 35.9; O2SAT 99
--- NOTE | 2025-02-11 17:38 | PM.PROC.1 ---
Procedures Date/Time Date of procedure: 02/11/25 Time of procedure: 13:30 General Procedure description: Therapeutic and diagnostic paracentesis. Verbal consent was obtained. The abdomen was examined with ultrasound and a left lower quadrant pocket was discovered. Skin was cleansed and lidocaine was used to anesthetize the skin, 1 cm of 1%. A small afua was made with a blade. The paracentesis needle was introduced to the peritoneum, and the catheter was advanced over the needle without difficulty. 4 L of somewhat cloudy yellow fluid was obtained and there was no bleeding. The patient initially had abdominal pain before the procedure started but this resolved with her paracentesis. Her blood pressures remained stable and her pain improved significantly with the procedure. The needle was removed and a Band-Aid was applied. Fluid was sent for cytology, Gram stain, cell count, and culture.
[2025-02-11 20:06] LABS: Ammonia (NH3) < 9 umol/L (9-30); Potassium 3.5 mmol/L (3.4-5.1)
[2025-02-11 20:07] LABS: Blood Urea Nitrogen 3 mg/dL (7-17); Calcium 7.5 mg/dL (8.4-10.2); Carbon Dioxide 24 mmol/L (22-32); Chloride 96 mmol/L (98-107); Estimated Glomerular Filt Rate > 60 mL/min (>60); Glucose 125 mg/dL (70-99); HEMOLYSIS 50 (0-50); Sodium 124 mmol/L (137-145)
[2025-02-11 20:55] VITALS: BP 132/79; PULSE 93; RESP 16; TEMP 36.5; O2SAT 99
[2025-02-12] VITALS (8 sets, daily range): BP systolic 109–147; BP diastolic 62–90; PULSE 76–105; RESP 15–16; TEMP 35.9–36.6; O2SAT 97–100
[2025-02-12] MEDS: PANTOPRAZOLE DR 20 MG TABLET PO (06:24)
--- NOTE | 2025-02-12 08:07 | PM.PN.1 ---
Subjective Subjective Interval history: Summary: 69 year old female with past medical history of HTN, Sciatica, and depression presents with abdominal pain and swelling. Per the patient's report, the patient has been havinng poor appetite over the last few weeks. The patient also has diarrhe daily but denies any fever, chills, nausea or vomiting. The patient also denies any GIB. The patient however noticed that she has increasing abdominal swelling ut gordon any pain. The patient's daughter was concerned and brought the patient here for further evaluation. In addition, the patient's daughter report that the patient does drink/abuse alcohol. In our ER, the patient was hemodynamically stable and saturating well on room air. However, the patient lab shows a sodium of 126, potassium 2.5 and glucose of 174. Lactic acid was 3.[address] Lipase normal[address] CT scan of abdomen shows sign of cirrhosis and Large ascites with small right pleural effusion. The patient was given Mag replacement, Potassium replacement and IVF with NS due to possible dehydration as a cause for Hyponatremia. S: Not confused, daughter is visiting from [place] as of today. She was an RN. Patient's ammonia was normal. She was having reaccumulation of ascites but no abdominal pain. O: T 97.8, BP 142/84, pulse 105, respiration 16, SpO2 98% room air. Cachectic, no acute distress. Normal speech. Lungs are clear, normal effort. Heart is irregular, rate controlled. Abdomen with less ascites, no rebound. Minimal leg edema. NH3 less 9 IMAGING: CTAP: Hepatic steatosis and cirrhotic morphology of the liver. Large volume ascites. Marked colonic and small bowel wall thickening throughout the abdomen which may represent portal hypertensive gastroenterocolopathy or alternatively infection. Small right effusion. MICRO: None. LABS: Sodium 125, K 3.0, creatinine 0.23. A/P: 1. Hyponatremia. Multifactorial, solute deficiency as well as liver cirrhosis with free water overload. 2. Hypokalemia. Replace and monitor. 3. Hypomagneseima. Replace and monitor. 4. Reported alcohol abuse. Monitor for withdrawal and treat accordingly. 5. Cirrhosis. New diagnsosis likely secondary to alcohol abuse. Will need further workup and management as outpatient. 6. Elevated lactic acid. Could be dehydration and also liver not able to clear due to cirhosis. IVF for now and repeat lacitic acid. No sign of sepsis otherwise. PLAN: -NS @ 100/hr -monitor sodium every 12 hours. -encourage oral intake. -anticipate discharge on February 13 if she does well physical therapy and sodium reaches 130. Also anticipate probable paracentesis before she leaves. -start Lasix, nadolol, and spironolactone. ZELALEM: 02/13. DVT PPx SCDs Code status full code Anticipate 2 MN in the hospital, supports inpatient status. Exam Vital Signs (past 8 hours): - 02/12/25 02:20 02/12/25 06:00 Temperature 97.8 F Pulse Rate 105 H Respiratory Rate 16 16 Blood Pressure 142/84 H Pulse Oximetry 98 Oxygen Flow Rate 0 Oxygen Delivery Method Room Air Oxygen Flow Rate 0 Objective Labs 02/11/25 05:19 02/12/25 08:19 Labs: Laboratory Results - last 24 hr 02/11/25 02/11/25 02/11/25 08:58 13:33 19:45 Sodium 124 L 124 L Potassium 4.0 3.5 Chloride 98 96 L Carbon Dioxide 22 24 BUN 4 L 3 L Creatinine 0.23 L 0.22 L Estimated GFR > 60 > 60 BUN/Creatinine Ratio 17.4 13.6 Glucose 101 H 125 H Lactate 1.9 Calcium 7.6 L 7.5 L Ammonia < 9 L PFSH Medical History Sinus tachycardia Arthritis TMJ (dislocation of temporomandibular joint) Sciatica HTN (hypertension) Surgical History History of open reduction and internal fixation (ORIF) procedure (01/05/18) History of 3 sections History of fusion of cervical spine Social History household members: none Smoking Status: Former smoker alcohol intake: current Assessment & Plan Time-Based Coding :: [TOTAL MINUTES] spent with patient and on the chart (including review of chart, obtaining history, exam, reviewing outside data, placing orders, documenting exam and treatment plan, and counseling patient) on [DATE].
[2025-02-12] MEDS: FOLIC ACID 1 MG TABLET PO (08:16)
[2025-02-12] MEDS: CITALOPRAM 10 MG TABLET 30 MG PO (08:16)
[2025-02-12] MEDS: POTASSIUM CHLORIDE 20 MEQ TAB 40 MEQ PO (08:16)
[2025-02-12] MEDS: MULTIVITAMIN 1 TABLET 1 TAB PO (08:17)
[2025-02-12] MEDS: THIAMINE 100 MG TABLET PO (08:17)
[2025-02-12 08:40] LABS: Alanine Aminotransferase 20 IU/L (<35); Albumin 3.0 g/dL (3.5-5.0); Albumin Globulin Ratio 1.0 (1.0-2.8); Alkaline Phosphatase 154 U/L (38-126); Calcium 8.2 mg/dL (8.4-10.2); Carbon Dioxide 27 mmol/L (22-32); Chloride 97 mmol/L (98-107); Estimated Glomerular Filt Rate > 60 mL/min (>60); Globulin 2.9 g/dL (1.7-4.1); Glucose 102 mg/dL (70-99); HEMOLYSIS 28 (0-50); Magnesium 1.6 mg/dL (1.6-2.3); Potassium 3.9 mmol/L (3.4-5.1); Sodium 127 mmol/L (137-145); Total Protein 5.9 g/dL (6.3-8.2)
[2025-02-12 08:43] LABS: Blood Urea Nitrogen 2 mg/dL (7-17)
--- NOTE | 2025-02-12 10:49 | DIET.PN1 ---
Dietary Progress Note Assessment: Met with pt at bedside who reports 40 lb weight loss within 6 months r/t decreased appetite and early satiety. Having some issues swallowing larger pieces of food as well. Barium swallow order for today. Lunch selection adjusted to minced and moist. NFPE performed with severe muscle wasting (temples, deltoid, trapezius, interosseous) and severe buccal and orbital fat pad loss and tricep loss. Ht: 162.56 cm Wt: 44.3 kg BMI: 16.7 UBW: -40 lb in 6 months Last BM: () MNA: 6 Frank Score: 20 Diet: 02/10/25 Dinner General (Regular) Diet Diet Modifications: Nutrition Percent Meal Consumed 25% 02/11/25 18:00 Labs: RBC 2.65 X10^6/uL (4.0-5.2) L 02/11/25 05:19 Hgb 10.5 g/dL (12.0-16.0) L 02/11/25 05:19 Hct 29.3 % (36-46) L 02/11/25 05:19 Creatinine 0.25 mg/dL (0.52-1.04) L 02/12/25 08:19 Lactate 1.9 mmol/L (0.7-2.1) 02/11/25 08:58 Nutrition Diagnosis: Severe Protein Calorie Malnutrition in context of chronic illness related to alteration in function of GI-related organ as evidenced by cirrhosis, BMI severely underweight (16.8), <60% of estimated energy needs for >3 months with report of alcohol abuse, 25% weight loss in 6 months (severe), severe muscle wasting (temples, deltoid, trapezius, interosseous) and severe buccal and orbital fat pad loss Interventions: -Discussed high kcal-high protein diet, small freq meals, bedtime Ensure, protein needs, options -Provided handout on high kcals/high protein diet and protein sources with protein goal -Provided Ensure coupons -Discussed goal of getting a protein powder and adding it to the almond milk she consumes or doing ensure+/complete/500 kcals instead, adding extra butter/oil to dishes, adding pb, having a bedtime Ensure EER: 8129-3059 kcals (35-40 kcals/kg r/t cirrhosis w/ underweight BMI) 65-70 g protein (1.5 g/kg per cirrhosis) Monitoring/Evaluations: po intakes, swallow eval and diet changes, ONS tolerance Electronically Signed by: Aracelis Aparicio 02/12/25 10:49 Clinical Dietitian [address] [address]
[2025-02-12] MEDS: FUROSEMIDE 40 MG TABLET PO (11:33)
[2025-02-12] MEDS: SPIRONOLACTONE 25 MG TABLET PO (11:33)
--- NOTE | 2025-02-12 13:12 | PT-IP ANOTE ---
Pt out for procedure not in room, will continue to follow as able.
--- NOTE | 2025-02-12 15:05 | CM.DPNOTE ---
DCP Continued: Reviewed EMR and team rounds for pt?s medical status. Per hospitalist, pending barium swallow results and monitoring Na+ levels. DENSITOMETRIST entered room, introduced self and role. DENSITOMETRIST discussed home health referral placed yesterday by previous SW. Pt agrees with referral and wants to move forward. Pt daughter explains she thinks pt would benefit from caregiving in home for ADLs as well, requesting caregiving agencies in the area. DENSITOMETRIST sent MD orders to [facility] via secure email, will need dc summary sent when available. DENSITOMETRIST provided contacts for caregiving agencies for patient, per pt and pt daughter request. Plan: Anticipating discharge home with home health and daughter support on 02/13 or when medically cleared. CM Team will continue to follow for coordination of discharge plans. ISAC Lea
--- NOTE | 2025-02-12 15:49 | ST.SWALLOW ---
Visit Care Team Role Provider Type Louie Jones MD Primary Care Provider Physician Specialty: Internal Medicine Address: [address], [address], [place], [address] Email: Urvashi Barillas DO Emergency Provider Physician Referring Provider Specialty: Emergency Medicine Address: [address] [place] [address], [address] Email: [email or web address] Stew Bryson MD Attending Provider Physician Specialty: Internal Medicine Address: [address] [place] [address], [address] Email: [email or web address] Luna MD Admit Provider Physician Other Providers Specialty: Family Practice Address: [address] [place] [address], [facility] Phone: Fax: Email: [email or web address] Modified Barium Swallow Study NEON SIGN ERECTOR Modified Barium Swallow Study Start: 02/12/25 14:02 Freq: Status: Active Protocol: Document 02/12/25 14:03 LNK (Rec: 02/12/25 15:49 LNK Desktop) Modified Barium Swallow Study Total Time Visit Start Time 13:00 Visit Stop Time 13:[address] Guillory Reason for Referral dysphagia Setting Setting Acute Care Patient Information Identification Type Name,Date of Patient History 69 year old female presented with abdominal pain and swelling. The patient's daughter was concerned and brought the patient to ED for further evaluation. the patient's daughter report that the patient does drink/ abuse alcohol. The pt reported having poor appetite, diarrhea daily. She denied any fever, chills, nausea or vomiting. Pt reported she had an ACDF in 2013 and has had swallowing problems since then. Pt has PMH of GERD and takes PPI medication. She has a GI follow- up scheduled soon, though unsure of date. Pt denied overt s/sx of aspiration, recent head/neck procedures or surgeries, or neuro hx. ST performed a clinical swallow evaluation (02/11/25) that indicated Pt presents with WFL oral phase dysphagia and concern for possible pharyngeal phase dysphagia given globus sensation and sticking sensation with intake of solids. MBSS was recommended to determine pt risk for aspiration assess pharyngeal swallow function and anatomy. Subjective Pt was seated in the flouroscopy chair and brought to Observations the flouroscopy room. Directions and procedures explained her. She noted that she has a hyperactive gag and requested an emeisis bag. pt then indicated indicated she understood and agreed to proceed. Patient Positioning Position View Lat-A/P Imaging Lateral View Textures Administered Trials Presented Thin Liquid via Spoon (IDDSI 0),Thin Liquid via Cup ( IDDSI 0),Thin Liquid via Straw (IDDSI 0),Mildly Thick Liquid via Spoon (IDDSI 2),Mildly Thick Liquid via Straw (IDDSI 2),Extremely Thick Liquid via Spoon (IDDSI 4),Regular (IDDSI 7) Barium Tablet Yes The IDDSI Framework Protocol: IDDSI.1 Oral Impairment Source: The Modified Barium Swallow Impairment Profile (MBSImP??) Lip Closure Interlabial escape; no progression to anterior lip Tongue Control Cohesive bolus between tongue to palatal seal During Bolus Hold Bolus Preparation/ Minimal chewing/mashing with majority of bolus unchewed Mastication Bolus Transport/ Delayed initiation of tongue motion Lingual Motion Oral Residue Residue collection on oral structures Location Tongue Initiation of Bolus head at pyriforms Pharyngeal Swallow Additional Oral *OME and DKS were observed to be WFL. Impairment *Pt was edentulous, stating her lower denture creates Observations sores in her mouth; her upper denture was loose and falling down. Pt requested to not have dentures in place. *Mastication observed with anterior munching pattern without teeth *Pt was unable to masticate the cookie trial (one half of a Aniya Doone cookie), spitting out approximately half of the trialed cookie *Initiation of swallow delayed *Oral phase with mild dysphagia Pharyngeal Impairment Source: The Modified Barium Swallow Impairment Profile (MBSImP??) Laryngeal Elevation Part.sup.move.thyroid cart/part.approx.arytenoids to epiglot.petiole Anterior Hyoid No anterior movement Excursion Epiglottic Movement Partial inversion Laryngeal Vestibular Incomplete; narrow column air/contrast in laryngeal Closure vestibule Pharyngeal Stripping Absent Wave Pharyngoesophageal Partial distention/partial duration; partial Segment Opening obstruction of flow Tongue Base Wide column of contrast/air betwn tongue base & post. Retraction pharyngeal wall Pharyngeal Residue Collection of residue within/on pharyngeal structures Location Diffuse (>3 areas) Additional Cervical cage visualized from C1-T2. Pt unable to chin Pharyngeal tuck or turn her head left/right Impairment *Reduced base of tongue retraction strength and Observations hyolaryngeal elevation and movement *Partial epiglottic inversion with laryngeal penetration noted above the vocal folds with visible laryngeal residue despite cued cough (PAS 3) *Spontaneous cough delayed and ineffective in clearing laryngeal residue * No stripping of the posterior pharyngeal wall; partial distension and duration of UES opening - Combined effect resulted in pooling of residue/ secretions throughout pharynx *Delayed and nonproductive reflexive cough; cued cough ineffective in clearing laryngeal residue *Moderate pharyngeal phase dysphagia *Hyoid/laryngeal elevation and epiglottic inversion were judged to be adequate. *Tongue base retraction was mildly reduced resulting in trace residue. *Pharyngeal stripping wave and cricopharyngeal opening appeared adequate and did not appear to impede bolus flow. *Post-swallow residue was mild primarily at the base of tongue, posterior pharyngeal wall, valleculae and pyriform sinuses primarily with puree and regular texture. Pt did sensate to residue and independently cleared with multiple dry swallows. A/P View Textures Administered Trials Presented Thin Liquid via Spoon (IDDSI 0),Thin Liquid via Cup ( IDDSI 0),Mildly Thick Liquid via Spoon (IDDSI 2),Soft & Bite-sized (IDDSI The IDDSI Framework Protocol: IDDSI.1 A/P View Observations Esophageal Clearance Esophageal retention w/regtrograde flow below Upright Position pharyngoesoph segment Vocal Fold Function Good Esophageal Function Slowed Clearing,Poor Motility,Stasis,Narrowing Additional A-P *Esophageal retention from area of the clavicles to the Observations LES. Several water swallows were observed to clear most of esophageal contents to the stomach. *Barium liquid was observed to clear to the stomach in a timely manner *Barium table was observed to stop at the aortic arch requiring additional water to pass to the level of the LES. Additional water was needed to pass the tablet into the stomach Clinical Impressions Dysphagia Type Pharyngeal,Esophageal Findings *Pt presented with pharyngeal and esophageal dysphagia. *Laryngeal penetration with residue remaining in the larynx was noted. Partial extension and duration of esophageal opening resulted in pooled secretions. *Because of the extent of the cervical/thoracic hardware, the pt is limited in her ability to move her head to protect her airway via swallow strategies. *Pt did not present an aspiration risk with single sips of thin liquid. Penetration did occur with consecutive swallows (high volume at a rapid rate) and posed a potential risk for aspiration. *Esophageal phase demonstrated retention with no retroflow in upper esophagus consistent with pt's report of globus sensation. *Recommend ST for safe swallow strategy training and compensatory maneuvers to reduce aspiration risk. *Recommend GI referral for further evaluation esophageal dysphagia. The results and recommendations were reviewed with the pt's daughter, who is a nurse. Daughter lives out of state. Pt has two other children who live in [place] [facility] Good Potential Patient Appropriate Yes for Therapy Recommendations Diet Liquids Order Thin (IDDSI 0) Diet Order Soft & Bite-sized (IDDSI 6) Medication As Tolerated,Whole in Carrier Recommendation Additional Dietary Chopped Food,Single Sips,Controlled Sips,Reminders to Needs Use Strategies Aspiration Precautions Recommended Upright at 90 Degrees,Alternate Liquids/Solids,Small Precautions Bites/Sips Treatment Plan Therapy Inpatient Speech Therapy,Outpatient Speech Therapy Recommendations Recommended GI Consult Referrals Therapy Strategy Sitting Upright (90 deg),Liquids from Straw,Liquids Recommendations from Spoon,Small Bites and Sips Placement Long-Term Facility,Tso Care Facility,Home Recommendation After with Home Health Discharge
--- NOTE | 2025-02-12 16:02 | ST.SWALLOW ---
Visit Care Team Role Provider Type Louie Jones MD Primary Care Provider Physician Specialty: Internal Medicine Address: [address], [address], [place], [address] Email: Urvashi Barillas DO Emergency Provider Physician Referring Provider Specialty: Emergency Medicine Address: [address] [place] [address], [address] Email: [email or web address] Stew [email or web address] MD Attending Provider Physician Specialty: Internal Medicine Address: [address] [place] [address], [address] Email: [email or web address] MD Admit Provider Physician Other Providers Specialty: Family Practice Address: [address] [place] [address], [facility] Phone: Fax: Email: [email or web address] Modified Barium Swallow Study COOKER SULFATE Modified Barium Swallow Study Start: 02/12/25 14:02 Freq: Status: Active Protocol: Document 02/12/25 14:03 LNK (Rec: 02/12/25 15:49 LNK Desktop) Modified Barium Swallow Study Total Time Visit Start Time 13:00 Visit Stop Time 13:[address] Guillory Reason for Referral dysphagia Setting Setting Acute Care Patient Information Identification Type Name,Date of Patient History 69 year old female presented with abdominal pain and swelling. The patient's daughter was concerned and brought the patient to ED for further evaluation. the patient's daughter report that the patient does drink/ abuse alcohol. The pt reported having poor appetite, diarrhea daily. She but denied any fever, chills, nausea or vomiting. Pt reported she had an ACDF in 2013 and has had swallowing problems since then. Pt has PMH of GERD and takes PPI medication. She has a GI follow- up scheduled soon, though unsure of date. Pt denied overt s/sx of aspiration, recent head/neck procedures or surgeries, or neuro hx. ST performed a clinical swallow evaluation (02/11/25) that indicated Pt presents with WFL oral phase dysphagia and concern for possible pharyngeal phase dysphagia given globus sensation and sticking sensation with intake of solids. MBSS was recommended to determine pt risk for aspiration assess pharyngeal swallow function and anatomy. Subjective Pt was seated in the flouroscopy chair and brought to Observations the flouroscopy room. Directions and procedures explained her. She noted that she has a hyperactive gag and requested an emeisis bag. pt then indicated indicated she understood and agreed to proceed. Patient Positioning Position View Lat-A/P Imaging Lateral View Textures Administered Trials Presented Thin Liquid via Spoon (IDDSI 0),Thin Liquid via Cup ( IDDSI 0),Thin Liquid via Straw (IDDSI 0),Mildly Thick Liquid via Spoon (IDDSI 2),Mildly Thick Liquid via Straw (IDDSI 2),Extremely Thick Liquid via Spoon (IDDSI 4),Regular (IDDSI 7) Barium Tablet Yes The IDDSI Framework Protocol: IDDSI.1 Oral Impairment Source: The Modified Barium Swallow Impairment Profile (MBSImP??) Lip Closure Interlabial escape; no progression to anterior lip Tongue Control Cohesive bolus between tongue to palatal seal During Bolus Hold Bolus Preparation/ Minimal chewing/mashing with majority of bolus unchewed Mastication Bolus Transport/ Delayed initiation of tongue motion Lingual Motion Oral Residue Residue collection on oral structures Location Tongue Initiation of Bolus head at pyriforms Pharyngeal Swallow Additional Oral *OME and DKS were observed to be WFL. Impairment *Pt was edentulous, stating her lower denture creates Observations sores in her mouth; her upper denture was loose and falling down. Pt requested to not have dentures in place. *Mastication observed with anterior munching pattern without teeth *Pt was unable to masticate the cookie trial (one half of a Aniya Doone cookie), spitting out approximately half of the trialed cookie *Initiation of swallow delayed *Oral phase with mild dysphagia Pharyngeal Impairment Source: The Modified Barium Swallow Impairment Profile (MBSImP??) Laryngeal Elevation Part.sup.move.thyroid cart/part.approx.arytenoids to epiglot.petiole Anterior Hyoid No anterior movement Excursion Epiglottic Movement Partial inversion Laryngeal Vestibular Incomplete; narrow column air/contrast in laryngeal Closure vestibule Pharyngeal Stripping Absent Wave Pharyngoesophageal Partial distention/partial duration; partial Segment Opening obstruction of flow Tongue Base Wide column of contrast/air betwn tongue base & post. Retraction pharyngeal wall Pharyngeal Residue Collection of residue within/on pharyngeal structures Location Diffuse (>3 areas) Additional Cervical cage visualized from C1-T2. Pt unable to chin Pharyngeal tuck or turn her head left/right Impairment *Reduced base of tongue retraction strength and Observations hyolaryngeal elevation and movement *Partial epiglottic inversion with laryngeal penetration noted above the vocal folds with visible laryngeal residue despite cued cough (PAS 3) *Spontaneous cough delayed and ineffective in clearing laryngeal residue * No stripping of the posterior pharyngeal wall; partial distension and duration of UES opening - Combined effect resulted in pooling of residue/ secretions throughout pharynx *Delayed and nonproductive reflexive cough; cued cough ineffective in clearing laryngeal residue Moderate pharyngeal phase dysphagia A/P View Textures Administered Trials Presented Thin Liquid via Spoon (IDDSI 0),Thin Liquid via Cup ( IDDSI 0),Mildly Thick Liquid via Spoon (IDDSI 2),Soft & Bite-sized (IDDSI The IDDSI Framework Protocol: IDDSI.1 A/P View Observations Pharyngeal Complete Contraction Esophageal Clearance Esophageal retention w/regtrograde flow below Upright Position pharyngoesoph segment Vocal Fold Function Good Esophageal Function Slowed Clearing,Poor Motility,Stasis,Narrowing Additional A-P *Esophageal retention from area of the clavicles to the Observations LES. Several water swallows were observed to clear most of esophageal contents to the stomach. *Barium liquid was observed to clear to the stomach in a timely manner *Barium table was observed to stop at the aortic arch requiring additional water to pass to the level of the LES. Additional water was needed to pass the tablet into the stomach Clinical Impressions Dysphagia Type Pharyngeal,Esophageal Findings *Pt presented with pharyngeal and esophageal dysphagia. *Laryngeal penetration with residue remaining in the larynx was noted. Partial extension and duration of esophageal opening resulted in pooled secretions. Because of the extent of the cervical/thoracic hardware, the pt is limited in her ability to move her head to protect her airway via swallow strategies. *Pt did not present an aspiration risk with single sips of thin liquid. Penetration did occur with consecutive swallows (high volume at a rapid rate) and posed a potential risk for aspiration. *Esophageal phase demonstrated retention with no retroflow in upper esophagus consistent with pt's report of globus sensation. *Recommend ST for safe swallow strategy training and compensatory maneuvers to reduce aspiration risk. *Recommend GI referral for further evaluation esophageal dysphagia. Rehabilitation Good Potential Patient Appropriate Yes for Therapy Recommendations Diet Liquids Order Thin (IDDSI 0) Diet Order Soft & Bite-sized (IDDSI 6) Medication As Tolerated,Whole in Carrier Recommendation Additional Dietary Chopped Food,Single Sips,Controlled Sips,Reminders to Needs Use Strategies Aspiration Precautions Recommended Upright at 90 Degrees,Alternate Liquids/Solids,Small Precautions Bites/Sips Treatment Plan Therapy Inpatient Speech Therapy,Outpatient Speech Therapy Recommendations Recommended GI Consult Referrals Therapy Strategy Sitting Upright (90 deg),Liquids from Straw,Liquids Recommendations from Spoon,Small Bites and Sips Placement Long Term Facility,Residential Care Facility,Home Recommendation After with Home Health Discharge
[2025-02-12] MEDS: GABAPENTIN 100 MG CAPSULE PO (21:12)
[2025-02-13] VITALS (10 sets, daily range): BP systolic 100–144; BP diastolic 44–89; PULSE 81–103; RESP 16–18; TEMP 35.7–36.3; O2SAT 94–99
[2025-02-13 05:16] LABS: Hematocrit 32.7 % (36-46); Hemoglobin 11.4 g/dL (12.0-16.0); Mean Corpuscular HGB Conc 35.0 % (30-36); Mean Corpuscular Hemoglobin 38.5 PG (26-34); Mean Corpuscular Volume 110.1 fL (80-100); Platelet Count 176 X10^3/uL (150-400)
[2025-02-13 05:25] LABS: Alanine Aminotransferase 16 IU/L (<35); Albumin 2.5 g/dL (3.5-5.0); Albumin Globulin Ratio 1.0 (1.0-2.8); Alkaline Phosphatase 124 U/L (38-126); Calcium 7.8 mg/dL (8.4-10.2); Carbon Dioxide 28 mmol/L (22-32); Chloride 98 mmol/L (98-107); Estimated Glomerular Filt Rate > 60 mL/min (>60); Globulin 2.5 g/dL (1.7-4.1); Glucose 83 mg/dL (70-99); HEMOLYSIS 21 (0-50); Potassium 3.6 mmol/L (3.4-5.1); Sodium 125 mmol/L (137-145); Total Protein 5.0 g/dL (6.3-8.2)
[2025-02-13 05:26] LABS: Blood Urea Nitrogen 2 mg/dL (7-17)
[2025-02-13] MEDS: PANTOPRAZOLE DR 20 MG TABLET PO (06:37)
--- NOTE | 2025-02-13 07:45 | P.PN_ITS ---
Subjective Subjective Date Patient Seen: 02/13/25 Interval history: 69 year old female with past medical history of HTN, Sciatica, and depression presents with abdominal pain and swelling. Per the patient's report, the patient has been havinng poor appetite over the last few weeks. The patient also has diarrhea daily but denies any fever, chills, nausea or vomiting. The patient also denies any GIB. The patient however noticed that she has increasing abdominal swelling ut gordon any pain. The patient's daughter was concerned and brought the patient here for further evaluation. In addition, the patient's daughter report that the patient does drink/abuse alcohol. In our ER, the patient was hemodynamically stable and saturating well on room air. However, the patient lab shows a sodium of 126, potassium 2.5 and glucose of 174. Lactic acid was 3.[address] Lipase normal. CT scan of abdomen shows sign of cirrhosis and Large ascites with small right pleural effusion. The patient was given Mag replacement, Potassium replacement and IVF with NS due to possible dehydration as a cause for Hyponatremia. 02/12: Not confused, daughter(was an RN) is visiting from [place] as of today. Patient's ammonia was normal. She was having reaccumulation of ascites but no abdominal pain. 02/13: She explains that she lives in [place] with her cat. The sodium level instead of rising dropped to 125 today. Her abdomen is distended and she is talking about getting another paracentesis. She is very hard of hearing. IV fluid will be stopped. Cachectic, no acute distress. Normal speech. Lungs are clear, normal effort. Heart is irregular, rate controlled. Abdomen with moderate ascites, no rebound. Minimal leg edema. Very atrophied limb muscles. NH3 less 9 IMAGING: CTAP: Hepatic steatosis and cirrhotic morphology of the liver. Large volume ascites. Marked colonic and small bowel wall thickening throughout the abdomen which may represent portal hypertensive gastroenterocolopathy or alternatively infection. Small right effusion. MICRO: None. LABS: Sodium 125, K 3.0, creatinine 0.23. A/P: 1. Hyponatremia. Multifactorial, solute deficiency as well as liver cirrhosis with free water overload. 2. Hypokalemia. Replace and monitor. 3. Hypomagneseima. Replace and monitor. 4. Reported alcohol abuse. Monitor for withdrawal and treat accordingly. 5. Cirrhosis/Ascites. New diagnosis likely secondary to alcohol abuse. Will need further workup and management as outpatient. 6. Elevated lactic acid. Resolved. PLAN: -Discontinue NS IV -monitor sodium -encourage oral intake. -anticipate discharge on February 14 if she does well with physical therapy and sodium stabilizes close to 130. Anticipate needing another paracentesis before she leaves. -Continue Lasix and spironolactone. ZELALEM: 02/14. DVT PPx SCDs Code status full code Exam Vital Signs (past 8 hours): - 02/13/25 00:10 02/13/25 04:31 Temperature 96.7 F L 96.8 F L Pulse Rate 91 H 86 Respiratory Rate 16 16 Blood Pressure 113/82 115/71 Pulse Oximetry 94 96 Oxygen Flow Rate 0 0 Oxygen Delivery Method Room Air Oxygen Flow Rate 0 Objective Labs 02/13/25 04:59 02/13/25 04:59 Labs: Laboratory Results - last 24 hr 02/12/25 02/13/25 08:19 04:59 WBC 4.5 RBC 2.97 L Hgb 11.4 L Hct 32.7 L MCV 110.1 H MCH 38.5 H MCHC 35.0 RDW 13.3 Plt Count 176 Sodium 127 L 125 L Potassium 3.9 3.6 Chloride 97 L 98 Carbon Dioxide 27 28 BUN 2 L 2 L Creatinine 0.25 L 0.30 L Estimated GFR > 60 > 60 BUN/Creatinine Ratio 8.0 6.7 Glucose 102 H 83 Calcium 8.2 L 7.8 L Magnesium 1.6 Total Bilirubin 1.3 1.1 AST 51 H 41 H ALT 20 16 Alkaline Phosphatase 154 H 124 Total Protein 5.9 L 5.0 L Albumin 3.0 L 2.5 L Globulin 2.9 2.5 Albumin/Globulin Ratio 1.0 1.0 [facility] Medical History Sinus tachycardia Arthritis TMJ (dislocation of temporomandibular joint) Sciatica HTN (hypertension) Surgical History History of open reduction and internal fixation (ORIF) procedure (01/05/18) History of 3 sections History of fusion of cervical spine Social History household members: none Smoking Status: Former smoker alcohol intake: current Assessment & Plan Time-Based Coding :: [TOTAL MINUTES] spent with patient and on the chart (including review of chart, obtaining history, exam, reviewing outside data, placing orders, documenting exam and treatment plan, and counseling patient) on [DATE].
[2025-02-13] MEDS: THIAMINE 100 MG TABLET PO (08:24)
[2025-02-13] MEDS: CITALOPRAM 10 MG TABLET 30 MG PO (08:25)
[2025-02-13] MEDS: FUROSEMIDE 40 MG TABLET PO (08:25)
[2025-02-13] MEDS: SPIRONOLACTONE 25 MG TABLET PO (08:25)
[2025-02-13] MEDS: FOLIC ACID 1 MG TABLET PO (08:26)
[2025-02-13] MEDS: MULTIVITAMIN 1 TABLET 1 TAB PO (08:26)
--- NOTE | 2025-02-13 10:49 | ST.IPDYTX ---
Visit Care Team Role Provider Type Louie Jones MD Primary Care Provider Physician Specialty: Internal Medicine Address: [address], [address], [place], [address] Email: Urvashi Barillas DO Emergency Provider Physician Referring Provider Specialty: Emergency Medicine Address: [address] [place] [address], [address] Email: [email or web address] Stew Bryson MD Attending Provider Physician Specialty: Internal Medicine Address: [address] [place] [address], [address] Email: [email or web address] Ally Luna MD Admit Provider Physician Other Providers Specialty: Family Practice Address: [address] [place] [address], [facility] Phone: Fax: Email: [email or web address] [email or web address] [email or web address] INSPECTOR Dysphagia Treatment FRETTED INSTRUMENT INSPECTOR Dysphagia Treatment Start: 02/13/25 10:35 Freq: Status: Active Protocol: Document 02/13/25 10:36 MA (Rec: 02/13/25 10:48 MA Desktop) Dysphagia Treatment Session Time Visit Start Time 10:00 Visit Stop Time 10:20 Total Visit Minutes 20 Visit Information Visit Number 2 Setting Assessment Location Acute Care Patient Information Subjective Chart reviewed and RN consulted. Pt agreeable to ST. Pt Observations daughter present at bedside. Pt sitting upright in chair, awake and alert. Treatment Liquids Trialed Thin (IDDSI 0) Solids Trialed Soft & Bite-sized (IDDSI 6) Administration Type Cup Single Sip,Self-Feeding Oral Strategies Upright at 90 degrees,Alternate Liquids/Solids Pharyngeal Sitting Upright (90 deg),Small Bites and Sips,Alternate Strategies Liquids/Solids Treatment Activities Review of MBS results from 02/12/25. Assessment of diet tolerance with soft solids and thin liquids via cup. Education and review of safe swallowing strategies. Education and handout provided regarding swallow exercises to strengthen base of tongue, and hyolaryngeal elevation such as Amber, effortful and Julio. The IDDSI Framework Protocol: IDDSI.1 Assessment Patient Response to Excellent Treatment Rehab Potential Excellent Assessment of ST reviewed MBS results with Pt recalling safe Improvement swallowing strategies taught post MBS with 100% accuracy, specifically her stating she needs to keep her head in neutral position and take 1 sip at a time. ST provided Pt a handout of hyolaryngeal strengthening exercises and provided a visual model with Pt demonstrating back with 100% accuracy. Pt had a donut and coffee on tray table in front of her from her daughter. For donut, Pt took a very small piece to consume, size of a pea, and reports this is how big of bites she takes at home as well d/t fear of choking. She reports she consumes most of her nutrition through liquids. For solids, Pt exhibited adequate mastication, no overt s/s of aspiration such as coughing or choking . Pt without lower dentures in, however states she is able to gum at small piece of soft solid. For thin coffee via single cup sips, Pt exhibited no overt s/s of aspiration. ST recommends continuation of current diet and recommended Pt continue to utilize safe swallowing strategies and complete swallow exercises 2- 3x/day 10x each. Pt verbalized understanding. ST plan to continue to assess Pt use of safe swallow strategies and exercises. Recommendations Recommendations Continue Current Diet Liquids Order Thin (IDDSI 0) Diet Order Soft & Bite-sized (IDDSI 6) Medication As Tolerated,Whole in Carrier Recommendations Additional Dietary Chopped Food,Single Sips,Controlled Sips,Reminders to Needs Use Strategies Treatment Plan Placement Home with Home Health Recommendation after Discharge Appropriate for Yes Continued Therapy Referrals/Other Recommended GI Consult Referrals
--- NOTE | 2025-02-13 11:20 | PT.IPTN ---
Current Diagnoses Hypo-osmolality and hyponatremia (02/10/25) Physical Therapy Treatment Note M2 PT-IP Current Condition Start: 02/11/25 14:01 Freq: Status: Active Protocol: Document 02/11/25 14:01 NW (Rec: 02/11/25 14:14 NW [id number]) Physical Therapy Current Condition Current Condition Evaluation Date 02/11/25 Treatment Diagnosis Weakness, Frailty Onset Date 02/10/25 M3 PT-IP Subjective Start: 02/11/25 14:01 Freq: Status: Active Protocol: Document 02/13/25 11:58 NW (Rec: 02/13/25 12:05 NW [id number]) Subjective Physical Therapy Visit Type Type Treatment Note Visit Start Time 10:52 Visit Stop Time 11:20 Number of EMISSION SPECIALIST Visits 0 Physical Therapy Visit Comments Patient Comments Pt is found seated in bed side chair visiting with daughter. Pt is more euphoric today with increased positivity. Patient Goals To go home. M4 PT-IP Mobility and Gait Start: 02/11/25 14:01 Freq: Status: Active Protocol: Document 02/13/25 11:58 NW (Rec: 02/13/25 12:05 NW [id number]) PT-Transfer Assessment Sit to and From Stand Sit to and from Contact Guard Assistance Stand Equipment Transfer Assistive Gait Belt,Front Wheeled Walker Device Transfers Transfer Destination Chair,Toilet Transfer Technique Stand Step Pivot Transfer Ability Level of Assist Contact Guard Assistance Comments Mobility Comments Cues for UE placement with AD and anterior weight shift . Gait Assessment Gait Gait Assistance Contact Guard Assist Required: Distance (Feet) 120 Assistive Devices Assistive Device Gait Belt,Front Wheeled Walker Gait Deviations General Gait Pattern Decreased Stride Length Comments Gait Comments Ambulated in single bout with cues for activity tolerance safety awareness and to decrease depth in FWW . Irregular step through gait pattern with decreased stride length. PT-Balance Assessment Sitting Balance and Reactions Static Sitting Normal Balance Ability Dynamic Sitting Good Balance Ability Standing Balance and Reactions Static Standing Good Balance Ability Dynamic Standing Fair Balance Ability Device Used FWW and none Functional Assessments Functional Tests 5 Times Sit to Stand 40 sec M5 PT-IP Objective Assessments Start: 02/11/25 14:01 Freq: Status: Active Protocol: Document 02/11/25 14:01 NW (Rec: 02/11/25 14:14 NW [id number]) Orientation Orientation/Cognition Level of Alertness Alert Orientation Name,Age,Birthday,Month,Date,Year,Day of Week,Place, Situation Safety Awareness Understands Safety Issues Comments High fear of falling. Gross Range of Motion Upper Extremity ROM Assessment Within Functional Limits Lower Extremity ROM Assessment Within Functional Limits Strength Lower Extremity Strength Assessment Right Impaired Hip 3/5 flexion Knee 3+/5 ext Ankle 3+/5 DF Comments Strength Comments pt states this has been slow decline over last month. Coordination Assessment Gross Coordination Gross Coordination WNL Sensation Assessment Sensation Gross Sensation WNL Light Touch Intact Proprioception ( Intact Position) Muscle Tone Muscle Tone WNL Yes M6 PT-IP Treatment Start: 02/11/25 14:01 Freq: Status: Active Protocol: Document 02/13/25 11:58 NW (Rec: 02/13/25 12:05 NW [id number]) Physical Therapy Treatment Education Education Provided Safety Other Treatments Other Treatment Activity tolerance education with regards to performing Performed exercise snacks throughout day. M7 PT-IP Assessment and Plan Start: 02/11/25 14:01 Freq: Status: Active Protocol: Document 02/13/25 11:58 NW (Rec: 02/13/25 12:05 NW [id number]) PT Summary Assessment and Plan Potential Rehabilitation Excellent Potential Status of Condition Evolving at Evaluation Summary Impairments Balance,Transfers,Gait,Activity Tolerance Progress Towards Progressing Toward Goals Goals Assessment Summary Increased willingness to participate with improved activity tolerance. Pt continues to demonstrate no instability of the RLE and is at CGA for all transfers and gait with cues for UE placement and AD management. Continue to recommend home health upon discharge as pt has adequate family support at home to assist with needs while pt continues to improve tolerance. Goals Bed Mobility Goal Standby Assistance Transfer Goal Standby Assistance Gait Goal Standby Assistance Gait Distance 300 Days to Meet Goals 2 Frequency of Treatment Frequency Of Once a Day Treatment Treatment Plan Physical Therapy Bed Mobility Training,Transfer Training,Gait Training, Treatment Plan Therapeutic Exercise,Balance Retraining,Discharge Planning,Neuromuscular Re-ed Other Progress functional mobility and strength to LRAD. Recommendations and Trial of 4WW. Next Treatment Focus Precautions Other Precautions falls risk Weight Bearing Status Weight Bearing Weight Bear as Tolerated Status Recommendations To Nursing Amount of Assist 1 Person Assist Needed Discharge Recommendations PT Discharge Home with Assistance,Home Health Recommendations Other Discharge Pt has 4WW will try to progress to this AD upon Recommendations discharge. Equipment Needed for Pt has WC, SPC, 4WW, and shower chair. Home Before Discharge Transportation Needs Private Vehicle at Discharge - PT assist 1
--- NOTE | 2025-02-13 11:31 | PC.NURSE ---
Pt resting in room, up with PT earlier this am without difficulty, talked about [place], TV on watching the news, NAD, will continue to monitor.
--- NOTE | 2025-02-13 12:25 | PC.NURSE ---
pt sitting up in bed, NAD, daughter at bedside, will continue to monitor, pt eating lunch asking when she will be going home
--- NOTE | 2025-02-13 13:02 | CM.DPC ---
DCP Cont. Reviewed EMR and team rounds for pt's medical status and updates. Per Hospitalist, pt will need 1-more day before she is medically cleared for home d/c. Will d/c with [facility], will need to send d/c summary at time of d/c.
[2025-02-14 04:58] VITALS: BP 110/79; PULSE 101; RESP 16; TEMP 36; O2SAT 97
[2025-02-14 05:40] LABS: Blood Urea Nitrogen 2 mg/dL (7-17); Calcium 8.2 mg/dL (8.4-10.2); Carbon Dioxide 32 mmol/L (22-32); Chloride 95 mmol/L (98-107); Estimated Glomerular Filt Rate > 60 mL/min (>60); Glucose 84 mg/dL (70-99); HEMOLYSIS 17 (0-50); Potassium 3.5 mmol/L (3.4-5.1); Sodium 128 mmol/L (137-145)
--- NOTE | 2025-02-14 08:05 | P.DS_ITS ---
History of Present Illness History of Present Illness Date Patient Seen: 02/14/25 Chief complaint: fall T-2, vomit, cannot keep food down, weak Discharge Providers Provider Date of admission: 02/10/25 18:56 Primary care physician: Louie Jones MD Consults: 02/10/25 19:07 Consult to Dietitian, Adult Routine Comment: Reason For Exam: malnutrition Consult to Physical Therapy Evaluate & Treat Comment: Physician Instructions: Evaluate and Treat 02/10/25 22:02 Consult to Dietitian, Adult Routine Comment: Reason For Exam: weight loss Consult to Speech Therapy Evaluate & Treat Comment: Physician Instructions: Evaluate and treat 02/12/25 10:26 Consult to Physical Therapy Evaluate & Treat Comment: Physician Instructions: Evaluate and Treat 02/12/25 15:06 Consult to Home Health Routine Comment: Reason For Exam: RN, PT, HH Aide Discharge provider: Nancy Guillaume MD Summary Hospital Course Hospital Course: 69 year old female with past medical history of HTN, Sciatica, and depression presents with abdominal pain and swelling. Per the patient's report, the patient has been havinng poor appetite over the last few weeks. The patient also has diarrhea daily but denies any fever, chills, nausea or vomiting. The patient also denies any GIB. The patient however noticed that she has increasing abdominal swelling ut gordon any pain. The patient's daughter was concerned and brought the patient here for further evaluation. In addition, the patient's daughter report that the patient does drink/abuse alcohol. In our ER, the patient was hemodynamically stable and saturating well on room air. However, the patient lab shows a sodium of 126, potassium 2.5 and glucose of 174. Lactic acid was 3.2 AST 39[address] Lipase normal. CT scan of abdomen shows sign of cirrhosis and Large ascites with small right pleural effusion. The patient was given Mag replacement, Potassium replacement and IVF with NS due to possible dehydration as a cause for Hyponatremia. 02/12: Not confused, daughter(was an RN) is visiting from [place] as of today. Patient's ammonia was normal. She was having reaccumulation of ascites but no abdominal pain. 02/13: She explains that she lives in [place] with her cat. The sodium level instead of rising dropped to 125 today. Her abdomen is distended and she is talking about getting another paracentesis. She is very hard of hearing. IV fluid will be stopped. Cachectic, no acute distress. Normal speech. Lungs are clear, normal effort. Heart is irregular, rate controlled. Abdomen with moderate ascites, no rebound. Minimal leg edema. Very atrophied limb muscles. NH3 less 9 IMAGING: CTAP: Hepatic steatosis and cirrhotic morphology of the liver. Large volume ascites. Marked colonic and small bowel wall thickening throughout the abdomen which may represent portal hypertensive gastroenterocolopathy or alternatively infection. Small right effusion. MICRO: None. LABS: Sodium 125, K 3.0, creatinine 0.23. A/P: 1. Hyponatremia. Multifactorial, solute deficiency as well as liver cirrhosis with free water overload. 2. Hypokalemia. Replace and monitor. 3. Hypomagneseima. Replace and monitor. 4. Reported alcohol abuse. Monitor for withdrawal and treat accordingly. 5. Cirrhosis/Ascites. New diagnosis likely secondary to alcohol abuse. Will need further workup and management as outpatient. 6. Elevated lactic acid. Resolved. PLAN: -Discontinue NS IV -monitor sodium -encourage oral intake. -anticipate discharge on February 14 if she does well with physical therapy and sodium stabilizes close to 130. Anticipate needing another paracentesis before she leaves. -Continue Lasix and spironolactone. Exam Vital Signs (past 8 hours): - 02/14/25 04:58 Temperature 96.8 F L Pulse Rate 101 H Respiratory Rate 16 Blood Pressure 110/79 Pulse Oximetry 97 Oxygen Flow Rate 0 Oxygen Delivery Method Room Air Oxygen Flow Rate 0 Objective Labs 02/13/25 04:59 02/14/25 04:57 Labs: Laboratory Results - last 24 hr 02/14/25 04:57 Sodium 128 L Potassium 3.5 Chloride 95 L Carbon Dioxide 32 BUN 2 L Creatinine 0.33 L Estimated GFR > 60 BUN/Creatinine Ratio 6.1 Glucose 84 Calcium 8.2 L [facility] Medical History Sinus tachycardia Arthritis TMJ (dislocation of temporomandibular joint) Sciatica HTN (hypertension) Surgical History History of open reduction and internal fixation (ORIF) procedure (01/05/18) History of 3 sections History of fusion of cervical spine Social History household members: none Smoking Status: Former smoker alcohol intake: current Discharge Plan Discharge orders & Medications Prescriptions: No Action meclizine 12.5 mg tablet 12.5 mg PO BID PRN (Reason: dizziness) acetaminophen-codeine 300-30 mg tablet 1 tab PO BID PRN (Reason: pain) metformin 500 mg tablet 500 mg PO DAILY trazodone 50 mg tablet 25 mg PO ONCE PM PRN (Reason: insomnia) cyclobenzaprine 10 mg tablet 10 mg PO 3XD PRN (Reason: muscle spasm) citalopram 20 mg tablet 30 mg PO DAILY omeprazole 20 mg capsule,delayed release(DR/EC) 20 mg PO DAILY gabapentin 100 mg capsule 100 mg PO ONCE PM PRN (Reason: neuropathy) ropinirole 1 mg Tablet 2 mg PO BEDTIME PRN (Reason: restless leg(s)) multivitamin Capsule 1 cap PO DAILY Follow up/Referrals: Louie Jones MD [Primary Care Provider, Internal Medicine] Discharge Data Primary Care Provider: Louie Jones
[2025-02-14 09:05] VITALS: BP 133/79; PULSE 97; RESP 16; TEMP 36.1; O2SAT 98
[2025-02-14] MEDS: THIAMINE 100 MG TABLET PO (09:12)
[2025-02-14] MEDS: FOLIC ACID 1 MG TABLET PO (09:12)
[2025-02-14] MEDS: SPIRONOLACTONE 25 MG TABLET PO (09:12)
[2025-02-14] MEDS: FUROSEMIDE 40 MG TABLET PO (09:12)
[2025-02-14] MEDS: CITALOPRAM 10 MG TABLET 30 MG PO (09:12)
[2025-02-14] MEDS: MULTIVITAMIN 1 TABLET 1 TAB PO (09:12)
--- NOTE | 2025-02-14 09:34 | PC.NURSE ---
Patient is sweet and pleasant. Up to the bathroom with 1 person assist. Patient is frail and emaciated. She has hx of alcohol use but states that she has never had a problem with it. Her youngest daughter is up from [place] visiting and her other daughter will help care for her at home. Patient incontinent of urine and voided in the bathroom x1. She has a foul smelling urine, notified MD to see what he would like to do. Patient is a possible discharge home with family today.
[2025-02-14 09:47] LABS: INR 1.1 (0.9-1.3); Prothrombin Time 12.3 SECONDS (9.4-12.5)
[2025-02-14] MEDS: POTASSIUM CHLORIDE 20 MEQ TAB PO (11:30)
--- NOTE | 2025-02-14 11:48 | PC.NURSE ---
Pt's dtr Naya, who is a nurse, is present at the bedside from [place] of state, very helpful and supportive to pt. Pt's brief saturated with urine 2x so far this morning, ambulated to bathroom and also urinated twice in toilet, urine is cloudy and very foul smelling, plan to obtain UA. Pt only ate a few bites of oatmeal for breakfast and drank the provided drinks. Pt is hopeful to DC later this afternoon. Abdomen very hard, painful and distended. Will continue to monitor.
--- NOTE | 2025-02-14 11:50 | DI.US.S_ITS ---
PROCEDURE: US ABDOMEN LIMITED INDICATIONS: Ascites TECHNIQUE: Real-time scanning was performed of the abdominal and retroperitoneal organs, with image documentation. COMPARISON: [facility], CT, CT ABDOMEN PELVIS W CON, 02/10/2025, 16:39. FINDINGS: Low volume ascites with greatest pocket in the left lower quadrant. IMPRESSION: Low volume ascites Dictated by: Jamey Venegas M.D. on 02/14/2025 at 14:05 Approved by: Jamey Venegas M.D. on 02/14/2025 at 14:09
[2025-02-14] MEDS: MORPHINE 2 MG/ML INJ IV (14:08)
--- NOTE | 2025-02-14 15:00 | PT-IP ANOTE ---
Pt refused PT due to pain levels. Pt continues to mobilize to and from bathroom with staff certified nurse midwife.
--- NOTE | 2025-02-14 15:28 | P.PN_ITS ---
Subjective Subjective Interval history: 69 year old female with past medical history of HTN, Sciatica, and depression presents with abdominal pain and swelling. Per the patient's report, the patient has been havinng poor appetite over the last few weeks. The patient also has diarrhea daily but denies any fever, chills, nausea or vomiting. The patient also denies any GIB. The patient however noticed that she has increasing abdominal swelling ut gordon any pain. The patient's daughter was concerned and brought the patient here for further evaluation. In addition, the patient's daughter report that the patient does drink/abuse alcohol. In our ER, the patient was hemodynamically stable and saturating well on room air. However, the patient lab shows a sodium of 126, potassium 2.5 and glucose of 174. Lactic acid was 3.2 AST 39[address] Lipase normal. CT scan of abdomen shows sign of cirrhosis and Large ascites with small right pleural effusion. The patient was given Mag replacement, Potassium replacement and IVF with NS due to possible dehydration as a cause for Hyponatremia. 02/12: Not confused, daughter(was an RN) is visiting from [place] as of today. Patient's ammonia was normal. She was having reaccumulation of ascites but no abdominal pain. 02/13: She explains that she lives in [place] with her cat. The sodium level instead of rising dropped to 125 today. Her abdomen is distended and she is talking about getting another paracentesis. She is very hard of hearing. IV fluid will be stopped. 02/14: Abdominal distention remains unchanged. Daughter is requesting a repeat paracentesis due to anticipated challenges with getting another 1 done as an outpatient in the next week. Ultrasound done showing no significant pocket of fluid that would need to be drained or in a safe location. The sodium level is up to 128. The potassium is 3.5. The INR is 1.1. She is set up for [facility] at home. When I saw her the 2nd time today she was complaining of more abdominal pain and seemed to be tender over the right upper abdomen. Out of concern for possible spontaneous bacterial peritonitis we will initiate her on Dilaudid with Zosyn and observe for at least 1 more day. Cachectic, no acute distress. Normal speech. Lungs are clear, normal effort. Heart is irregular, rate controlled. Abdomen with moderate ascites, mild right upper quadrant tenderness. Minimal leg edema. Very atrophied limb muscles. NH3 less 9 IMAGING: CTAP: Hepatic steatosis and cirrhotic morphology of the liver. Large volume ascites. Marked colonic and small bowel wall thickening throughout the abdomen which may represent portal hypertensive gastroenterocolopathy or alternatively infection. Small right effusion. A/P: 1. Hyponatremia. Multifactorial, solute deficiency as well as liver cirrhosis with free water overload. 2. Hypokalemia. Replace and monitor. 3. Hypomagneseima. Replace and monitor. 4. Reported alcohol abuse. Monitor for withdrawal and treat accordingly. 5. Cirrhosis/Ascites. New diagnosis likely secondary to alcohol abuse. Will need further workup and management as outpatient. -increased abdominal pain on 02/14 suggesting possible spontaneous bacterial peritonitis. Begin Zosyn and delay discharge. 6. Elevated lactic acid. Resolved. PLAN: -Discontinued NS IV -monitor sodium -encourage oral intake. -anticipate discharge on February 15 if she abdominal pain resolves. -ultrasound on 02/14 shows no significant pockets or safe evacuation sites. -begin Zosyn for possible spontaneous bacterial peritonitis. -Continue Lasix and spironolactone. Exam Vital Signs (past 8 hours): - 02/14/25 09:05 Temperature 96.9 F L Pulse Rate 97 H Respiratory Rate 16 Blood Pressure 133/79 Pulse Oximetry 98 Oxygen Delivery Method Room Air Oxygen Flow Rate 0 Objective Labs 02/13/25 04:59 02/14/25 04:57 Labs: Laboratory Results - last 24 hr 02/14/25 02/14/25 02/14/25 04:57 09:00 13:31 PT 12.3 INR 1.1 Sodium 128 L Potassium 3.5 Chloride 95 L Carbon Dioxide 32 BUN 2 L Creatinine 0.33 L Estimated GFR > 60 BUN/Creatinine Ratio 6.1 Glucose 84 Calcium 8.2 L Ur Random Sodium 125 H [facility] Medical History Sinus tachycardia Arthritis TMJ (dislocation of temporomandibular joint) Sciatica HTN (hypertension) Surgical History History of open reduction and internal fixation (ORIF) procedure (01/05/18) History of 3 sections History of fusion of cervical spine Social History household members: none Smoking Status: Former smoker alcohol intake: current Assessment & Plan Time-Based Coding :: [TOTAL MINUTES] spent with patient and on the chart (including review of chart, obtaining history, exam, reviewing outside data, placing orders, documenting exam and treatment plan, and counseling patient) on [DATE].
--- NOTE | 2025-02-14 15:51 | ST.IPDYTX ---
Visit Care Team Role Provider Type Louie Jones MD Primary Care Provider Physician Specialty: Internal Medicine Address: [address], [address], [place], [address] Email: Urvashi Barillas DO Emergency Provider Physician Referring Provider Specialty: Emergency Medicine Address: [address] [place] [address], [address] Email: [email or web address] Stew Bryson MD Attending Provider Physician Specialty: Internal Medicine Address: [address] [place] [address], [address] Email: [email or web address] Ally Luna MD Admit Provider Physician Other Providers Specialty: Family Practice Address: [address] [place] [address], [facility] Phone: Fax: Email: [email or web address] PARTICIPATION SPECIALIST Dysphagia Treatment CIT[employer]EN [employer] SPECIALIST Dysphagia Treatment Start: 02/13/25 10:35 Freq: Status: Active Protocol: Document 02/14/25 15:45 MA (Rec: 02/14/25 15:50 MA Desktop) Dysphagia Treatment Session Time Visit Start Time 15:30 Visit Stop Time 15:45 Total Visit Minutes 15 Visit Information Visit Number 3 Setting Assessment Location Acute Care Patient Information Subjective Chart reviewed and RN consulted. Pt agreeable to ST. Pt Observations daughter present at bedside. Pt laying in bed upon ST entering room. Pt reports no swallowing issues since yesterday. Treatment Oral Strategies Upright at 90 degrees,Alternate Liquids/Solids Pharyngeal Sitting Upright (90 deg),Small Bites and Sips,Alternate Strategies Liquids/Solids Treatment Activities Education and review of safe swallowing strategies. Education regarding swallow exercises to strengthen base of tongue, and hyolaryngeal elevation such as Amber, effortful and Julio. The IDDSI Framework Protocol: IDDSI.1 Assessment Patient Response to Excellent Treatment Rehab Potential Excellent Assessment of Pt independently recalled safe swallowing strategies, Improvement such as taking small bites, eating/drinking slowly, eating upright 90 degrees and making sure head is in neutral position. Pt continues to report fear of choking and will take very small bites of food and occasionally spit them out. She had a donut on her tray table and reported eating mostly the pudding filling. ST educated Pt on importance of consuming enough PO intake in order to ensure primary nutrition/hydration needs. Pt verbalized understanding and states she lives off of Ensure and smoothies at home. ST reviewed swallow exercises, with Pt demonstrating back with 100% accuracy. ST recommends Pt remain on current diet with safe swallowing strategies in place. ST recommends Pt continue to complete swallow exercises 2-3x/day 10 reps each. Pt verbalized understanding. ST to discharge Pt at this time, however recommends another referral be placed if any changes occur. Recommendations Recommendations Continue Current Diet Liquids Order Thin (IDDSI 0) Diet Order Soft & Bite-sized (IDDSI 6) Medication As Tolerated,Whole in Carrier Recommendations Additional Dietary Chopped Food,Single Sips,Controlled Sips,Reminders to Needs Use Strategies Aspiration Precautions Recommended Upright at 90 Degrees,Alternate Liquids/Solids,Small Precautions Bites/Sips Treatment Plan Placement Home with Home Health Recommendation after Discharge Appropriate for Yes Continued Therapy Referrals/Other Recommended GI Consult Referrals
[2025-02-14] MEDS: PIPERACILLIN/TAZO 4.5 GM in SODIUM CHLORIDE 0.9% 100 ML IV (16:15)
[2025-02-14 20:29] VITALS: BP 141/91; PULSE 91
[2025-02-14] MEDS: PIPERACILLIN/TAZO 3.375 GM in SODIUM CHLORIDE 0.9% 100 ML IV (20:29)
[2025-02-14 20:30] VITALS: BP 141/91; PULSE 91; RESP 18; TEMP 36.5; O2SAT 97
[2025-02-14] MEDS: GABAPENTIN 100 MG CAPSULE PO (21:37)
[2025-02-15] MEDS: PIPERACILLIN/TAZO 3.375 GM in SODIUM CHLORIDE 0.9% 100 ML IV (04:44)
[2025-02-15] MEDS: PANTOPRAZOLE DR 20 MG TABLET PO (06:01)
--- NOTE | 2025-02-15 06:15 | PC.NURSE ---
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
[2025-02-15 06:28] LABS: Blood Urea Nitrogen 3 mg/dL (7-17); Calcium 7.9 mg/dL (8.4-10.2); Carbon Dioxide 30 mmol/L (22-32); Chloride 96 mmol/L (98-107); Estimated Glomerular Filt Rate > 60 mL/min (>60); Glucose 84 mg/dL (70-99); HEMOLYSIS < 15 (0-50); Potassium 3.5 mmol/L (3.4-5.1); Sodium 128 mmol/L (137-145)
--- NOTE | 2025-02-15 06:51 | PC.NURSE ---
environmental law professor, PCT and RN did morning rounds and found patient had an incontinent void in bed, Patient refused to be changed stating not right now, i need to finish, i will call you when am done. RN educated the patient on the importance of changing brief sooner than later for skin integrity and preventive for break down. technology sales consultant aware.
--- NOTE | 2025-02-15 08:39 | PT.IPTN ---
Current Diagnoses Hypo-osmolality and hyponatremia (02/10/25) Physical Therapy Treatment Note M2 PT-IP Current Condition Start: 02/11/25 14:01 Freq: Status: Active Protocol: Document 02/15/25 08:11 SP (Rec: 02/15/25 09:03 SP Desktop) Physical Therapy Current Condition Current Condition Evaluation Date 02/11/25 Treatment Diagnosis Weakness, Frailty Onset Date 02/10/25 M3 PT-IP Subjective Start: 02/11/25 14:01 Freq: Status: Active Protocol: Document 02/15/25 08:11 SP (Rec: 02/15/25 09:03 SP Desktop) Subjective Physical Therapy Visit Type Type Treatment Note Visit Start Time 08:11 Visit Stop Time 08:39 Number of [employer] Visits 1 Physical Therapy Visit Comments Patient Comments Pt agreeable to working with [employer]. She states I am soked in urine right now and needing to go to the bathroom. Patient Goals To go home with daughter to assist her. Therapy Pain Assessment Pain Present Pain Present Denied Pain M4 PT-IP Mobility and Gait Start: 02/11/25 14:01 Freq: Status: Active Protocol: Document 02/15/25 08:11 SP (Rec: 02/15/25 09:03 SP Desktop) PT-Bed Mobility Assessment Supine to Sit Supine to Sit Independent,Head of Bed Elevated,Bedrails Scooting Scooting to Edge of Independent Bed PT-Transfer Assessment Sit to and From Stand Sit to and from Standby Assistance,Contact Guard Assistance,Use of Stand Upper Extremities Equipment Transfer Assistive Gait Belt,4 Wheeled Walker Device Transfers Transfer Destination Chair,Toilet Transfer Technique Pt ambulated with 4WW Transfer Ability Level of Assist Standby Assistance,Contact Guard Assistance,Use of Upper Extremities Comments Mobility Comments Cues for redirection for proper 4WW brake mgt and hand placement pushing from bed to come tostanding and reach back slow descend. Improved during toilet transfers. [employer] set up pt with all needs for self hygiene in bathroom, able to wash and redress self but assist for brief donning over R>L LE. Pt reports R knee is unsteady but noted good stability during mobility. Cues and assist for 4WW behind her with brakes locked assist support if needed to sit. Good stability to washing hands and brushing hair at sink in standing unsupported. Returned to chair after hallway walk, continued safety cues for 4WW mobility requiring CG/ SBA. Gait Assessment Gait Gait Assistance Standby Assistance,Contact Guard Assist Required: Distance (Feet) 150 Assistive Devices Assistive Device Gait Belt,4 Wheeled Walker Gait Deviations General Gait Pattern Antalgic,Decreased Stride Length,Lateral Trunk Lean, Narrow Based Gait Factors Limiting Gait Function Factors Limiting Decreased Activity Tolerance,Decreased Strength,Poor Gait Function Balance Comments Gait Comments Ambulated in single bout with cues for activity tolerance safety awareness with use of 4WW, decreased pacing forward gait and pivot turns, unstable trunk sway when stopped to talk to physician in hallway, no LOB though. Improved self correction proximity and slower pacing with distance. Stair Climbing Assessment Comments Stair Climbing Not applicable. Comments PT-Balance Assessment Sitting Balance and Reactions Static Sitting Normal Balance Ability Dynamic Sitting Good Balance Ability Standing Balance and Reactions Static Standing Good Balance Ability Dynamic Standing Fair Balance Ability Device Used 4WW Comments Other Balance Tests/ Able to assist with toileting and dressing seated, good Deviations/Treatment static standing bal washing hands and comb hair at : sink but reaches for sink support to turn, afraid of falling. M5 PT-IP Objective Assessments Start: 02/11/25 14:01 Freq: Status: Active Protocol: Document 02/11/25 14:01 NW (Rec: 02/11/25 14:14 NW [id number]) Orientation Orientation/Cognition Level of Alertness Alert Orientation Name,Age,Birthday,Month,Date,Year,Day of Week,Place, Situation Safety Awareness Understands Safety Issues Comments High fear of falling. Gross Range of Motion Upper Extremity ROM Assessment Within Functional Limits Lower Extremity ROM Assessment Within Functional Limits Strength Lower Extremity Strength Assessment Right Impaired Hip 3/5 flexion Knee 3+/5 ext Ankle 3+/5 DF Comments Strength Comments pt states this has been slow decline over last month. Coordination Assessment Gross Coordination Gross Coordination WNL Sensation Assessment Sensation Gross Sensation WNL Light Touch Intact Proprioception ( Intact Position) Muscle Tone Muscle Tone WNL Yes M6 PT-IP Treatment Start: 02/11/25 14:01 Freq: Status: Active Protocol: Document 02/15/25 08:11 SP (Rec: 02/15/25 09:03 SP Desktop) Physical Therapy Treatment Education Education Provided Safety Other Treatments Other Treatment Education mobility with nursing, SBA due to unsteady Performed pivot turns at times can be to quick. M7 PT-IP Assessment and Plan Start: 02/11/25 14:01 Freq: Status: Active Protocol: Document 02/15/25 08:11 SP (Rec: 02/15/25 09:03 SP Desktop) PT Summary Assessment and Plan Potential Rehabilitation Excellent Potential Status of Condition Evolving at Evaluation Summary Impairments Strength,Balance,Cognition,Bed Mobility,Transfers,Gait, Activity Tolerance Progress Towards Progressing Toward Goals Goals Assessment Summary Increased willingness to participate with improved activity tolerance. Pt continues to demonstrate no instability of the RLE and is at CGA/SBA for all transfers and gait with cues for UE placement and 4WW management. Cues at times for proper brake mgt and positioning of 4WW for safety with decreased pacing. Continue to recommend home health upon discharge as pt has adequate family support at home to assist 24/7 with needs while pt continues to improve tolerance. Goals Bed Mobility Goal Standby Assistance Transfer Goal Standby Assistance Gait Goal Standby Assistance Gait Distance 300 Days to Meet Goals 2 Frequency of Treatment Frequency Of Once a Day Treatment Treatment Plan Physical Therapy Bed Mobility Training,Transfer Training,Gait Training, Treatment Plan Therapeutic Exercise,Balance Retraining,Discharge Planning,Neuromuscular Re-ed Other Continue safe use and pacing with 4WW. Recommendations and Next Treatment Focus Precautions Other Precautions falls risk Weight Bearing Status Weight Bearing Weight Bear as Tolerated Status Recommendations To Nursing Amount of Assist Standby Assistance,1 Person Assist Needed Discharge Recommendations PT Discharge Home with 24/7 Assist Available,Home Health Recommendations Equipment Needed for Pt has WC, SPC, 4WW, and shower chair. Home Before Discharge Transportation Needs Private Vehicle at Discharge - PT assist 1
[2025-02-15 08:46] VITALS: BP 141/91; PULSE 91
[2025-02-15] MEDS: FUROSEMIDE 40 MG TABLET PO (08:47)
[2025-02-15] MEDS: CITALOPRAM 10 MG TABLET 30 MG PO (08:47)
[2025-02-15] MEDS: SPIRONOLACTONE 25 MG TABLET PO (08:47)
[2025-02-15] MEDS: MULTIVITAMIN 1 TABLET 1 TAB PO (08:47)
[2025-02-15] MEDS: FOLIC ACID 1 MG TABLET PO (08:47)
[2025-02-15] MEDS: POTASSIUM CHLORIDE 20 MEQ TAB PO (10:25)
[2025-02-15 12:00] VITALS: BP 136/77; PULSE 81; RESP 19; TEMP 36.2; O2SAT 97
--- NOTE | 2025-02-15 12:44 | CM.DPC ---
DCP Cont. Reviewed EMR and team rounds for pt's medical status updates. Pt has been medically cleared for home d/c. Will send dc summary to [facility], orders have already been sent. No further CM d/c assistance or resource needs are identified at this time.
--- NOTE | 2025-02-15 12:51 | PC.NURSE ---
Removed pt PIV, pt tolerated well. No tele. No belongings in safe, pharm, or drawer. All belongings with pt family. Provided discharge education on medications and follow up and HH services. Pt and family stated all questions answered. All VSWNL. Pt family assisted pt to bathroom, 1x void and 1x BM. Pt escorted via WC by STEPHANIE Geiger to family POV.
--- NOTE | 2025-02-15 13:03 | P.DS_ITS ---
History of Present Illness History of Present Illness Date Patient Seen: 02/15/25 Time Patient Seen: 11:10 Chief complaint: fall T-2, vomit, cannot keep food down, weak Narrative: 69 year old female with past medical history of HTN, Sciatica, and depression presents with abdominal pain and swelling. Per the patient's report, the patient has been havinng poor appetite over the last few weeks. The patient also has diarrhe daily but denies any fever, chills, nausea or vomiting. The patient also denies any GIB. The patient however noticed that she has increasing abdominal swelling ut gordon any pain. The patient's daughter was concerned and brought the patient here for further evaluation. In addition, the patient's daughter report that the patient does drink/abuse alcohol. In our ER, the patient was hemodynamically stable and saturating well on room air. However, the patient lab shows a sodium of 126, potassium 2.5 and glucose of 174. Lactic acid was 3.2 AST [address] Lipase normal. CT scan of abdomen shows sign of cirrhosis and Large ascites with small right pleural effusion. The patient was given Mag replacement, Potassium replacement and IVF with NS due to possible dehydration as a cause for Hyponatremia. Discharge Providers Provider Date of admission: 02/10/25 18:56 Discharge Date: 02/15/25 Primary care physician: Louie Jones MD Consults: 02/10/25 19:07 Consult to Dietitian, Adult Routine Comment: Reason For Exam: malnutrition Consult to Physical Therapy Evaluate & Treat Comment: Physician Instructions: Evaluate and Treat 02/10/25 22:02 Consult to Dietitian, Adult Routine Comment: Reason For Exam: weight loss Consult to Speech Therapy Evaluate & Treat Comment: Physician Instructions: Evaluate and treat 02/12/25 10:26 Consult to Physical Therapy Evaluate & Treat Comment: Physician Instructions: Evaluate and Treat 02/12/25 15:06 Consult to Home Health Routine Comment: Reason For Exam: RN, PT, Aide Discharge provider: Prince Thomson MD Summary Hospital Course Discharge Diagnosis: 1. Cirrhosis/Ascites, likely secondary to alcohol abuse. Will need further workup and management as outpatient. 2. Spontaneous bacterial peritonitis. 3. Hyponatremia. Multifactorial, solute deficiency as well as liver cirrhosis with free water overload. 4. Hypokalemia, corrected. 5. Hypomagneseima, corrected. 6. Reported alcohol abuse, no evidence of withdrawal. 7. Elevated lactic acid. Resolved. Hospital Course: 02/12: Not confused, daughter(was an RN) is visiting from [place] as of today. Patient's ammonia was normal. She was having reaccumulation of ascites but no abdominal pain. 02/13: She explains that she lives in [place] with her cat. The sodium level instead of rising dropped to 125 today. Her abdomen is distended and she is talking about getting another paracentesis. She is very hard of hearing. IV fluid will be stopped. 02/14: Abdominal distention remains unchanged. Daughter is requesting a repeat paracentesis due to anticipated challenges with getting another 1 done as an outpatient in the next week. Ultrasound done showing no significant pocket of fluid that would need to be drained or in a safe location. The sodium level is up to 128. The potassium is 3.5. The INR is 1.1. She is set up for [facility] [place] [facility] home. When I saw her the 2nd time today she was complaining of more abdominal pain and seemed to be tender over the right upper abdomen. Out of concern for possible spontaneous bacterial peritonitis we will initiate her on Dilaudid with Zosyn and observe for at least 1 more day. 02/15: The patient states abdominal pain resolved but noted more bloating. She had no evident increase in ascites on bedside portable ultrasound and was interested in discharge home with outpatient followup. The patient and her daughter acknowledged understanding, agreement and appreciation of this plan of care, and agreed to call back with any questions or concerns. Exam Vital Signs (past 8 hours): - 02/15/25 08:46 02/15/25 12:00 Temperature 97.1 F L Pulse Rate 91 H 81 Respiratory Rate 19 Blood Pressure 141/91 H 136/77 Pulse Oximetry 97 Oxygen Flow Rate 0 Oxygen Delivery Method Room Air Oxygen Flow Rate 0 Narrative Exam Narrative: Cachectic, no acute distress. Normal speech. Lungs are clear, normal effort. Heart is irregular, rate controlled. Abdomen with moderate distension, no tenderness. Minimal ascites on bedside portable ultrasound. Minimal leg edema. Very atrophied limb muscles. Objective Imaging CT scan - abdomen: Radiologist's impression: Hepatic steatosis and cirrhotic morphology of the liver. Large volume ascites. Marked colonic and small bowel wall thickening throughout the abdomen which may represent portal hypertensive gastroenterocolopathy or alternatively infection. Small right effusion. US - abdomen: Radiologist's impression: Low volume ascites Labs 02/13/25 04:59 02/15/25 05:45 Labs: Laboratory Results - last 24 hr 02/14/25 02/15/25 13:31 05:45 Sodium 128 L Potassium 3.5 Chloride 96 L Carbon Dioxide 30 BUN 3 L Creatinine 0.36 L Estimated GFR > 60 BUN/Creatinine Ratio 8.3 Glucose 84 Calcium 7.9 L Ur Random Sodium 125 H PFSH Medical History Arthritis HTN (hypertension) Sciatica Sinus tachycardia TMJ (dislocation of temporomandibular joint) Surgical History History of 3 sections History of fusion of cervical spine History of open reduction and internal fixation (ORIF) procedure (01/05/18) Social History household members: none Smoking Status: Former smoker alcohol intake: current Discharge Plan Discharge Plan Patient Disposition: Home Provider Discharge Comment: Followup with PCP 1-2 weeks Discharge orders & Medications Prescriptions: New carvedilol 3.125 mg Tablet 3.125 mg PO BID Qty: 60 0RF amoxicillin-pot clavulanate 875-125 mg tablet 1 tab PO BID Qty: 12 0RF spironolactone 50 mg tablet 50 mg PO DAILY Qty: 30 0RF Continued meclizine 12.5 mg tablet 12.5 mg PO BID PRN (Reason: dizziness) acetaminophen-codeine 300-30 mg tablet 1 tab PO BID PRN (Reason: pain) trazodone 50 mg tablet 25 mg PO ONCE PM PRN (Reason: insomnia) cyclobenzaprine 10 mg tablet 10 mg PO 3XD PRN (Reason: muscle spasm) citalopram 20 mg tablet 30 mg PO DAILY omeprazole 20 mg capsule,delayed release(DR/EC) 20 mg PO DAILY gabapentin 100 mg capsule 100 mg PO ONCE PM PRN (Reason: neuropathy) ropinirole 1 mg Tablet 2 mg PO BEDTIME PRN (Reason: restless leg(s)) multivitamin Capsule 1 cap PO DAILY Discontinued metformin 500 mg tablet 500 mg PO DAILY Follow up/Referrals: Louie Jones MD [Primary Care Provider, Internal Medicine] Visit Report/Discharge Packet Stand Alone Forms: [employer], Patient Portal/API, Stroke Signs & Symptoms, Influenza Vaccine Info, Notice of Privacy Practices, Inpatient vs Outpatient, Pneumococcal Vaccine Info, Pt. Rights & Responsibilities Discharge Data Primary Care Provider: Louie Jones MIPS - Admit I confirm the patient?s Advance Care Plan is present, Code status is documented, Surrogate decision maker is in patient?s record [If Yes, STOP here]: Yes MIPS - Meds 'Current medications' to include all prescriptions, [id number] products, herbals, cannabis/cannabidiol products, and vitamin/mineral/dietary (nutritional) supplements. I have utilized all available resources to obtain, update, or review the patient?s current medications. [If Yes, STOP here]: Yes MIPS - DC The patient has a history of heart transplant or Left Ventricular Assist Device (LVAD). If yes, STOP here.: No The patient has current or prior documentation of left ventricular ejection fraction (LVEF) less than or equal to 40%, or moderate or severely depressed left ventricular systolic function.: No A. The patient was prescribed or already taking an Angiotensin-Converting Enzyme (GIANNI) Inhibitor, or Angiotensin Receptor Shy (ARB).: No B. The patient was prescribed or already taking a beta-shy. [If Yes to Both A & B, STOP here]: Yes Patient not prescribed/taking GIANNI or ARB, no reason given.: No Patient not prescribed/taking beta-shy, no reason given.: No IH PROFEE Charge Codes Discharge inpatient/observation: 60437 Lab Results Common Lab Results- Last: 2 WBC, (4.5-11.0) 4.5 X10^3/uL 02/13/25 RBC, (4.0-5.2) 2.97 X10^6/uL L 02/13/25 Hgb, (12.0-16.0) 11.4 g/dL L 02/13/25 Hct, (36-46) 32.7 % L 02/13/25 MCV, (80-100) 110.1 fL H 02/13/25 MCH, (26-34) 38.5 PG H 02/13/25 MCHC, (30-36) 35.0 % 02/13/25 RDW, (11.6-14.8) 13.3 % 02/13/25 Plt Count, (150-400) 176 X10^3/uL 02/13/25 Neut % (Auto), (50-75) 56.9 % 02/11/25 Lymph % (Auto), (25-40) 28.6 % 02/11/25 [place] % (Auto), (3-14) 12.8 % 02/11/25 Eos % (Auto), (2-4) 1.1 % L 02/11/25 Baso % (Auto), (0-2) 0.6 % 02/11/25 Neut # (Auto), (4644-0621) 2900 /uL 02/11/25 Sodium, (137-145) 128 mmol/L L Today Potassium, (3.4-5.1) 3.5 mmol/L Today Chloride, (98-107) 96 mmol/L L Today Carbon Dioxide, (22-32) 30 mmol/L Today BUN, (7-17) 3 mg/dL L Today Creatinine, (0.52-1.04) 0.36 mg/dL L Today Estimated GFR, (>60) > 60 mL/min Today BUN/Creatinine Ratio, (6-22) 8.3 Today Glucose, (70-99) 84 mg/dL Today Calcium, (8.4-10.2) 7.9 mg/dL L Today Total Bilirubin, (0.2-1.3) 1.1 mg/dL 02/13/25 AST, (14-36) 41 IU/L H 02/13/25 ALT, (<35) 16 IU/L 02/13/25 Alkaline Phosphatase, (38-126) 124 U/L 02/13/25 Total Protein, (6.3-8.2) 5.0 g/dL L 02/13/25 Albumin, (3.5-5.0) 2.5 g/dL L 02/13/25 Globulin, (1.7-4.1) 2.5 g/dL 02/13/25 Albumin/Globulin Ratio, (1.0-2.8) 1.0 ALT, (<35) 16 IU/L 02/13/25 AST, (14-36) 41 IU/L H 02/13/25 BUN, (7-17) 3 mg/dL L Today Creatinine, (0.52-1.04) 0.36 mg/dL L Today Estimated GFR, (>60) > 60 mL/min Today BUN/Creatinine Ratio, (6-22) 8.3 Today Hgb, (12.0-16.0) 11.4 g/dL L 02/13/25 RBC, (4.0-5.2) 2.97 X10^6/uL L 02/13/25 Hct, (36-46) 32.7 % L 02/13/25 Lipase, (23-300) 45 U/L 02/10/25 Plt Count, (150-400) 176 X10^3/uL 02/13/25 PT, (9.4-12.5) 12.3 SECONDS 02/14/25 INR, (0.9-1.3) 1.1 02/14/25
== END 2025-02-15 12:53 | disposition home health service (06) | DRG 432 ==
LOC: ED 14:00 → AC 18:57
PROVIDERS: Family Medicine; Hospitalist; Internal Medicine; Admitting Provider Family Medicine; Emergency Provider Emergency Medicine; PCP Internal Medicine; Referring Provider Emergency Medicine; Visit Provider Internal Medicine
DX: K70.31 Alcoholic cirrhosis of liver with ascites (principal); E43 Unspecified severe protein-calorie malnutrition; K65.2 Spontaneous bacterial peritonitis; E87.1 Hypo-osmolality and hyponatremia; F10.188 Alcohol abuse with other alcohol-induced disorder; Z68.1 Body mass index [BMI] 19.9 or less, adult; J90 Pleural effusion, not elsewhere classified; E83.42 Hypomagnesemia; E87.6 Hypokalemia; E86.0 Dehydration; G47.00 Insomnia, unspecified; G62.9 Polyneuropathy, unspecified; I10 Essential (primary) hypertension; F32.A Depression, unspecified; Z87.891 Personal history of nicotine dependence
CPT/HCPCS: 36415; 74177; 74230; 76705; 80048; 80053; 82140; 83605; 83690; 83735; 84100; 84300; 85025; 85027; 85610; 87070; 87075; 87077; 87086; 87186; 87205; 92526; 92610; 92611; 93005; 93010; 96365; 96366; 96368; 96375; 97162; 97530; 99284; J1171; J2270; J2543; J3475; J7030; J7050; Q9967